=== PATIENT | female | born 1950 | race Caucasian/White ===

== ENCOUNTER → 2024-03-14 08:29 | Outpatient (REF) | payer MEDICARE, OTHER, SELFPAY ==
[2024-03-14 11:21] LABS: Urine Albumin Negative (Neg - Trace); Urine Bilirubin Negative (Negative); Urine Character Slightly Cloudy (Clear); Urine Color Yellow; Urine Glucose 3+ (Negative); Urine Ketone Negative (Negative); Urine Leukocyte 1+ (Negative); Urine Nitrite Positive (Negative); Urine Occult Blood Negative (Negative); Urine Urobilinogen Negative (Neg - 1+)
[2024-03-14 11:31] LABS: Urine Bacteria Few (Negative); Urine Squamous Cell 0-2 /LPF (Few)
[2024-03-14 11:32] LABS: Urine White Cell 16-20 /HPF (0-5)
== END ==
LOC: OLABN 08:29
PROVIDERS: ATTENDING PHYSICIAN Student in an Organized Health Care Education/Training Program
DX: R30.9 Painful micturition, unspecified (principal)
CPT/HCPCS: 81003; 81015; 87071; 87086; 87186

== ENCOUNTER → 2024-06-17 10:50 | Outpatient (REF) | payer MEDICARE, OTHER, SELFPAY ==
[2024-06-17 13:42] LABS: Free T4 1.46 ng/dl (0.78-2.19)
[2024-06-17 13:56] LABS: TSH 1.08 uIU/ml (0.47-4.68)
== END ==
LOC: OLABN 10:50
PROVIDERS: ATTENDING PHYSICIAN Student in an Organized Health Care Education/Training Program
DX: E03.9 Hypothyroidism, unspecified (principal); F03.90 Unspecified dementia, unspecified severity, without behavioral disturbance, psychotic disturbance, mood disturbance, and anxiety
CPT/HCPCS: 84439; 84443

== ENCOUNTER → 2024-07-07 18:00 | Outpatient (REF) | payer MEDICARE, OTHER, SELFPAY ==
[2024-07-08 13:10] LABS: Urine Albumin Trace (Neg - Trace); Urine Bilirubin Negative (Negative); Urine Character Slightly Cloudy (Clear); Urine Color Yellow; Urine Glucose 3+ (Negative); Urine Ketone Negative (Negative); Urine Leukocyte Trace (Negative); Urine Nitrite Positive (Negative); Urine Occult Blood 2+ (Negative); Urine Urobilinogen Negative (Neg - 1+)
[2024-07-08 14:29] LABS: Urine Squamous Cell 0-2 /LPF (Few)
[2024-07-08 14:30] LABS: Urine Bacteria Many (Negative); Urine White Cell 26-30 /HPF (0-5)
== END ==
LOC: OLABN 18:00
PROVIDERS: ATTENDING PHYSICIAN Student in an Organized Health Care Education/Training Program
DX: R30.9 Painful micturition, unspecified (principal)
CPT/HCPCS: 36415; 81003; 81015; 87077; 87086

== ENCOUNTER → 2024-07-09 10:39 | Outpatient (REF) | payer MEDICARE, OTHER, SELFPAY ==
[2024-07-09 12:58] LABS: Glycohemoglobin (HgbA1c) 7.7 % (4.0-5.6)
== END ==
LOC: OLABN 10:39
PROVIDERS: ATTENDING PHYSICIAN Student in an Organized Health Care Education/Training Program
DX: E11.40 Type 2 diabetes mellitus with diabetic neuropathy, unspecified (principal)
CPT/HCPCS: 36415; 83036

== ENCOUNTER → 2024-08-27 11:33 | Outpatient (REF) | payer MEDICARE, OTHER, SELFPAY ==
[2024-08-27 12:35] LABS: HDL Cholesterol 62 mg/dl; LDL Cholesterol, Calculated 39 mg/dl; Total Cholesterol 130 mg/dl (50-199); Triglyceride 146 mg/dl (10-149); Very Low Density Lipoprotein 29 mg/dl (0-30)
== END ==
LOC: OLABN 11:33
PROVIDERS: ATTENDING PHYSICIAN Student in an Organized Health Care Education/Training Program
DX: E78.5 Hyperlipidemia, unspecified (principal)
CPT/HCPCS: 36415; 80061

== ENCOUNTER 2024-09-30 01:55 | Emergency (ER) | payer MEDICARE, OTHER, SELFPAY ==
[2024-09-30 02:00] VITALS: BP 157/75
[2024-09-30 02:08] VITALS: BP 157/75
--- NOTE | 2024-09-30 02:32 | ED.GENMED ---
History of Present Illness
General
Chief Complaint: Fall
Time Seen by Provider: 09/30/24 01:56
History of Present Illness
History of Present Illness:
74-year-old female with prior history of right hip replacement, CVA with right-sided hemiparesis, dementia presenting to the emergency department for fall. Patient reports she was sitting on the edge of her bed and was waiting for her aide. She
usually ambulates with assistance and a walker, however typically gets around with a wheelchair. While waiting for aide, slid from her bed onto the ground is now reporting right-sided hip pain. Denies any head injury. Denies numbness or tingling
to her leg. Has chronic weakness. Denies additional acute complaints such as chest pain, difficulty breathing, fever, abdominal pain
Past History
Past History
ED Past Medical History: Arrthythmia (Atrial fib), CVA (Right sided weakness, ), GERD, HTN, IDDM, Hypothyroidism and Other (DVT Internal jugular, UTI, Iron def anemia, )
ED Past Surgical History: Tonsilectomy and Other (Hernia repair)
Social History
Tobacco: Former smoker
Alcohol: None
Personal:
Living: jail
Phy Exam
Physical Exam
Physical Exam:
General: Well-appearing, no clinical signs of dehydration, nontoxic and in no acute distress
HEENT: protecting airway. No signs of trauma
Neck: appears supple, no midline tenderness to
CV: Normal heart rate, regular rhythm, no evidence of cyanosis
Resp: No accessory muscle use, no increased work of breathing, lungs clear to auscultation bilaterally
Abd: Soft and non-distended, no tenderness to palpation
Extremities: No deformities, no swelling, no erythema.
Neuro: alert, no focal neurologic deficit. Chronic weakness of the right upper and right lower extremity. No obvious deformity to the right lower extremity with generalized tenderness to the right hip joint. Range of motion limited secondary to
hemiparesis. Distal sensation and pulses intact
: deferred
Rectal: deferred
Psych: Normal affect
Skin: Intact
Course
Orders/Labs/Results
Orders:
Orders
09/30/24 02:17
Hip, Right 2-3 Views [CR Hip - RT w/wo Pel 2-3 Vw*] Urgent
Comment:
Reason For Exam: pain, fell out of bed
Include a pelvis x-ray?: Yes
09/30/24 02:25
Acetaminophen [Tylenol] 1,000 mg PO NOW STA
09/30/24 03:18
CT Pelvis W/o Iv Contrast Urgent
Comment:
Reason For Exam: fall, right hip pain
Vital Signs
Initial and Last Documented VS:
Initial Vital Signs
Temp Pulse Resp BP Pulse Ox
97.7 F 57 20 157/75 95
09/30/24 02:00 09/30/24 02:00 09/30/24 02:00 09/30/24 02:00 09/30/24 02:00
Last Documented Vital Signs
Temp Pulse Resp BP Pulse Ox
97.7 F 59 20 129/56 95
09/30/24 02:00 09/30/24 02:08 09/30/24 02:08 09/30/24 04:20 09/30/24 05:00
MDM/Problems Addressed
MDM/Problems Addressed:
74-year-old female with prior history of right hip replacement, CVA with right-sided hemiparesis, dementia presenting after fall out of bed onto her right hip vital signs are significant for mild hypertension.
On exam, patient is well-appearing, resting comfortably, no physical signs of trauma. Patient with generalized tenderness to the right hip joint without significant deformity or swelling. Range of motion is limited, however noted to be chronic
from previous CVA and hemiparesis. Otherwise no neurovascular compromise. Tylenol administered for fall. Will obtain x-ray imaging of the hip. Patient denying any head injury, again no signs of injury on exam, without indication for advanced
imaging
03:20 -patient without obvious hip fracture, difficult interpretation given arthritic nature. Given pain and hardware, will obtain CT pelvis for further evaluation
05:00 -CT without osseous abnormality. There is a small fluid collection at the right hip surgical site, possible seroma versus abscess. Lower suspicion for abscess, with pain result trauma. No erythema or warmth to the area or concern for
infection. Feel stable for discharge. Advised continued supportive therapy and ambulation with assistance and walker. Return precautions discussed and patient verbalized understanding
*Critical Care Note
Total Time (30-74mins, 75-104mins- exclusive of procedures): Not Applicable
ED Attending Note
-
Portions of this chart may have been created with voice recognition software.� Occasional wrong word or��sound alike� substitutions may have occurred due to the inherent limitations of voice recognition software.
Discharge Plan
Departure
Prescriptions:
No Action
dextromethorphan-guaifenesin 10-100 mg/5 mL Liquid
10 ml PO Q4HPRN PRN (Reason: cough)
acetaminophen [Tylenol Extra Strength] 500 mg Tablet
1,000 mg PO Q12H
magnesium hydroxide [Milk of Magnesia] 400 mg/5 mL Suspension
2,400 mg PO HSPRN PRN (Reason: constipation)
amlodipine [Norvasc] 10 mg Tablet
10 mg PO DAILY
bisacodyl [Dulcolax (bisacodyl)] 10 mg Suppository
10 mg NV [id number] PRN (Reason: if no bm by 3rd day)
pantoprazole [Protonix] 40 mg Tablet,Delayed Release (Dr/Ec)
40 mg PO QPM
gabapentin 300 mg Capsule
600 mg PO TID
escitalopram oxalate [Lexapro] 10 mg Tablet
15 mg PO DAILY
rosuvastatin [Crestor] 40 mg Tablet
40 mg PO QPM
insulin glargine [Basaglar KwikPen U-100 Insulin] 100 unit/mL (3 mL) Insulin Pen
18 unit SC HS
polyethylene glycol 3350 [Miralax] 17 gram Powder In Packet
17 g PO QPM
ondansetron HCl 4 mg Tablet
4 mg PO Q6HPRN PRN (Reason: nausea)
sennosides-docusate sodium [Senna-S] 8.6-50 mg Tablet
2 tab PO BID
levothyroxine 150 mcg Tablet
150 mcg PO DAILY
furosemide 40 mg Tablet
40 mg PO DAILY Qty: 30 0RF
ipratropium-albuterol 0.5 mg-3 mg(2.5 mg base)/3 mL Solution For Nebulization
3 ml INHALATION R BID
lidocaine 4 % Adhesive Patch,Medicated
1 patch TOPICAL DAILYPRN PRN (Reason: apply to right shoulder)
docusate sodium [Colace] 100 mg Capsule
200 mg PO DAILY
oxycodone 5 mg Tablet
5 mg PO Q6HPRN PRN (Reason: severe pain)
dapagliflozin propanediol 10 mg Tablet
10 mg PO DAILY
aspirin 81 mg Tablet,Chewable
81 mg PO DAILY
ferrous sulfate 325 mg (65 mg iron) Tablet
325 mg PO MOWEFR@1830
therapeutic multivitamin Tablet
1 tab PO DAILY
vancomycin in 0.9 % sodium chl 1 gram/200 mL Piggyback
1 g IV Q24H 11 Days Qty: 0 0RF
polyethylene glycol 3350 17 gram/dose powder
17 g PO DAILY Qty: 510 0RF
Referrals:
Long Blunt DO [Family Provider] -
Interventions
Interventions:
*Risk Screen - Suicide Last Done: 09/30/24 02:08
*General Assessment Last Done: 09/30/24 02:09
*Neglect/Abuse Screening Last Done: 09/30/24 02:08
*ED COVID-19 Vaccine History Last Done: 09/30/24 02:08
ED-Musculoskeletal Assessment Last Done: 09/30/24 02:04
ED- Neurological Assessment Last Done: 09/30/24 02:06
ED-Skin Assessment Last Done: 09/30/24 02:04
Discharge Date and Time
Print Language: SERBIAN
[2024-09-30] MEDS: TYLENOL 1000 MG PO (02:59)
[2024-09-30 04:20] VITALS: BP 129/56
[2024-09-30 05:00] VITALS: BP 113/49
[2024-09-30 06:00] VITALS: BP 96/47
== END 2024-09-30 06:36 | disposition home or self-care (01) ==
LOC: EMR 01:55
PROVIDERS: EMERGENCY PHYSICIAN Student in an Organized Health Care Education/Training Program; FAMILY PHYSICIAN Student in an Organized Health Care Education/Training Program
DX: M25.551 Pain in right hip (principal); W06.XXXA Fall from bed, initial encounter; E03.9 Hypothyroidism, unspecified; E11.9 Type 2 diabetes mellitus without complications; I10 Essential (primary) hypertension; Z86.718 Personal history of other venous thrombosis and embolism; I69.851 Hemiplegia and hemiparesis following other cerebrovascular disease affecting right dominant side; F03.90 Unspecified dementia, unspecified severity, without behavioral disturbance, psychotic disturbance, mood disturbance, and anxiety; Z79.4 Long term (current) use of insulin; Z87.891 Personal history of nicotine dependence; Z96.641 Presence of right artificial hip joint
CPT/HCPCS: 99284; 72192; 73502

== ENCOUNTER → 2024-10-14 08:44 | Outpatient (REF) | payer MEDICARE, OTHER, SELFPAY ==
[2024-10-14 12:05] LABS: Urine Albumin Trace (Neg - Trace); Urine Bilirubin Negative (Negative); Urine Character Clear (Clear); Urine Color Yellow; Urine Glucose 3+ (Negative); Urine Ketone Negative (Negative); Urine Leukocyte Trace (Negative); Urine Nitrite Negative (Negative); Urine Occult Blood 2+ (Negative); Urine Urobilinogen Negative (Neg - 1+)
[2024-10-14 12:49] LABS: Urine Urothelial Cell 0-2 /LPF (FEW); Urine White Cell 40-50 /HPF (0-5)
[2024-10-14 12:50] LABS: Urine Bacteria Moderate (Negative)
== END ==
LOC: OLABN 08:44
PROVIDERS: ATTENDING PHYSICIAN Student in an Organized Health Care Education/Training Program
DX: R30.9 Painful micturition, unspecified (principal)
CPT/HCPCS: 36415; 81003; 81015; 87086

== ENCOUNTER → 2024-10-29 09:54 | Outpatient (REF) | payer MEDICARE, OTHER, SELFPAY ==
[2024-10-29 12:31] LABS: % Basophils 0.5 % (0-2); % Eosinophils 0.3 % (0-6); % Immature Granulocytes 0.3 % (0-0.5); % Lymphocytes 15.6 % (20.5-51.1); % Monocytes 4.9 % (1.7-9.3); % Neutrophils 78.4 % (42.2-75.2); Absolute Basophils 0.1 10^3/uL (0-0.2); Absolute Lymphocytes 1.5 10^3/uL (1.2-3.4); Absolute Monocytes 0.5 10^3/uL (0.1-0.6); Absolute Neutrophils 7.6 10^3/uL (1.4-6.5); Hemoglobin 10.4 g/dL (12.0-16.0); Mean Corp Hgb Conc. 30.6 g/dL (33.0-37.0); Mean Corpuscular Hgb 27.6 pg (27.0-31.0); Mean Corpuscular Volume 90.2 fL (81.0-99.0); Mean Platelet Volume 10.5 fL (7.4-10.4); Nucleated Red Blood Cells % 0 %; Platelet Count 264 10^3/uL (130-400); Red Blood Cell Count 3.77 10^6/uL (4.20-5.40); Red Cell Dist. Width 16.6 % (11.5-14.5); White Blood Cell Count 9.6 10^3/uL (4.8-10.8)
== END ==
LOC: OLABN 09:54
PROVIDERS: ATTENDING PHYSICIAN Student in an Organized Health Care Education/Training Program
DX: D64.9 Anemia, unspecified (principal)
CPT/HCPCS: 36415; 85025

== ENCOUNTER → 2024-12-31 10:26 | Outpatient (REF) | payer MEDICARE, OTHER, SELFPAY ==
[2024-12-31 11:01] LABS: % Basophils 0.6 % (0-2); % Eosinophils 2.5 % (0-6); % Immature Granulocytes 0.5 % (0-0.5); % Lymphocytes 19.3 % (20.5-51.1); % Monocytes 8.4 % (1.7-9.3); % Neutrophils 68.7 % (42.2-75.2); Absolute Basophils 0.1 10^3/uL (0-0.2); Absolute Eosinophils 0.2 10^3/uL (0-0.7); Absolute Lymphocytes 1.7 10^3/uL (1.2-3.4); Absolute Monocytes 0.7 10^3/uL (0.1-0.6); Hematocrit 33.7 % (37.0-47.0); Hemoglobin 10.3 g/dL (12.0-16.0); Mean Corp Hgb Conc. 30.6 g/dL (33.0-37.0); Mean Corpuscular Volume 88.2 fL (81.0-99.0); Mean Platelet Volume 10.3 fL (7.4-10.4); Nucleated Red Blood Cells % 0.2 %; Platelet Count 274 10^3/uL (130-400); Red Blood Cell Count 3.82 10^6/uL (4.20-5.40); Red Cell Dist. Width 17.2 % (11.5-14.5); White Blood Cell Count 8.8 10^3/uL (4.8-10.8)
[2024-12-31 11:31] LABS: ALT (SGPT) < 10 U/L (0-35); AST (SGOT) 14 U/L (14-36); Albumin 3.4 g/dl (3.5-5.0); Alkaline Phosphatase 96 U/L (38-126); Blood Urea Nitrogen 18 mg/dl (7-17); Calcium 8.7 mg/dl (8.4-10.2); Carbon Dioxide 32 mmol/L (22-30); Chloride 95 mmol/L (98-107); Glucose 197 mg/dl (70-99); Potassium 4.1 mmol/L (3.5-5.1); Sodium 136 mmol/L (135-145); Total Bilirubin 0.6 mg/dl (0.2-1.3); eGFR > 60.00
== END ==
LOC: OLABN 10:26
PROVIDERS: ATTENDING PHYSICIAN Student in an Organized Health Care Education/Training Program
DX: R50.9 Fever, unspecified (principal)
CPT/HCPCS: 36415; 80053; 85025

== ENCOUNTER → 2024-12-31 21:30 | Outpatient (REF) | payer MEDICARE, OTHER, SELFPAY ==
[2025-01-01 13:02] LABS: Urine Albumin 2+ (Neg - Trace); Urine Bilirubin Negative (Negative); Urine Character Clear (Clear); Urine Color Yellow; Urine Glucose 4+ (Negative); Urine Ketone Negative (Negative); Urine Leukocyte Negative (Negative); Urine Nitrite Positive (Negative); Urine Occult Blood 3+ (Negative); Urine Urobilinogen Negative (Neg - 1+)
[2025-01-01 13:10] LABS: Urine Bacteria Few (Negative); Urine White Cell 21-25 /HPF (0-5)
[2025-01-02 12:50] LABS: Protein/creatinine Ratio 2.2; Urine Protein 103 mg/dl
== END ==
LOC: OLABN 21:30
PROVIDERS: ATTENDING PHYSICIAN Student in an Organized Health Care Education/Training Program
DX: R50.9 Fever, unspecified (principal)
CPT/HCPCS: 36415; 80053; 81003; 81015; 82570; 84156; 85025; 87077; 87086

== ENCOUNTER → 2025-01-06 08:44 | Outpatient (REF) | payer MEDICARE, OTHER, SELFPAY | LOC: OLABN 08:44 | PROVIDERS: ATTENDING PHYSICIAN Student in an Organized Health Care Education/Training Program | DX: E11.40 Type 2 diabetes mellitus with diabetic neuropathy, unspecified (principal) | CPT/HCPCS: 36415; 83036 ==

== ENCOUNTER → 2025-04-22 22:00 | Outpatient (REF) | payer MEDICARE, OTHER, SELFPAY ==
[2025-04-23 11:10] LABS: Urine Albumin 2+ (Neg - Trace); Urine Bilirubin Negative (Negative); Urine Character Slightly Cloudy (Clear); Urine Color Yellow; Urine Glucose 4+ (Negative); Urine Ketone Negative (Negative); Urine Leukocyte 2+ (Negative); Urine Nitrite Positive (Negative); Urine Occult Blood 1+ (Negative); Urine Specific Gravity 1.015 (<1.030); Urine Urobilinogen Negative (Neg - 1+)
[2025-04-23 11:19] LABS: Urine Squamous Cell 26-30 /LPF (Few)
[2025-04-23 11:22] LABS: Urine Bacteria Many (Negative); Urine Red Blood Cell 0-2 /HPF (0-2)
[2025-04-23 11:23] LABS: Urine White Cell 70-80 /HPF (0-5)
== END ==
LOC: OLABN 22:00
PROVIDERS: ATTENDING PHYSICIAN Student in an Organized Health Care Education/Training Program
DX: R35.0 Frequency of micturition (principal); R82.90 Unspecified abnormal findings in urine
CPT/HCPCS: 81003; 81015; 87086

== ENCOUNTER → 2025-04-29 09:43 | Outpatient (REF) | payer MEDICARE, OTHER, SELFPAY ==
[2025-04-29 11:36] LABS: % Basophils 0.7 % (0-2); % Eosinophils 3.2 % (0-6); % Immature Granulocytes 0.3 % (0-0.5); % Lymphocytes 17.9 % (20.5-51.1); % Monocytes 6.9 % (1.7-9.3); Absolute Basophils 0.1 10^3/uL (0-0.2); Absolute Eosinophils 0.3 10^3/uL (0-0.7); Absolute Lymphocytes 1.7 10^3/uL (1.2-3.4); Absolute Monocytes 0.7 10^3/uL (0.1-0.6); Absolute Neutrophils 6.8 10^3/uL (1.4-6.5); Hematocrit 36.2 % (37.0-47.0); Hemoglobin 10.8 g/dL (12.0-16.0); Mean Corp Hgb Conc. 29.8 g/dL (33.0-37.0); Mean Corpuscular Hgb 27.1 pg (27.0-31.0); Mean Platelet Volume 10.1 fL (7.4-10.4); Nucleated Red Blood Cells % 0.5 %; Platelet Count 305 10^3/uL (130-400); Red Blood Cell Count 3.98 10^6/uL (4.20-5.40); Red Cell Dist. Width 18.3 % (11.5-14.5); White Blood Cell Count 9.6 10^3/uL (4.8-10.8)
[2025-04-29 11:57] LABS: NT-proBNP 2860 pg/ml
[2025-04-29 12:06] LABS: Blood Urea Nitrogen 20 mg/dl (7-17); Calcium 8.6 mg/dl (8.4-10.2); Carbon Dioxide 27 mmol/L (22-30); Chloride 100 mmol/L (98-107); Glucose 191 mg/dl (70-99); Potassium 3.6 mmol/L (3.5-5.1); Sodium 138 mmol/L (135-145); eGFR 47.21
== END ==
LOC: OLABN 09:43
PROVIDERS: ATTENDING PHYSICIAN Student in an Organized Health Care Education/Training Program
DX: I10 Essential (primary) hypertension (principal); D50.9 Iron deficiency anemia, unspecified; I50.32 Chronic diastolic (congestive) heart failure
CPT/HCPCS: 36415; 80048; 83880; 85025

== ENCOUNTER 2025-05-14 23:04 | Inpatient (IN) | payer MEDICARE, OTHER, SELFPAY ==
[2025-05-14 18:05] VITALS: BMI 37.5
[2025-05-14 18:17] VITALS: BP 121/104
[2025-05-14 18:35] LABS: Venous Blood Gas B.E. 4.4 mmol/L (-4 to +4); Venous Blood Gas HCO3 32.5 mmol/L (22-27); Venous Blood Gas O2 Sat % 98.3 %; Venous Blood Gas pCO2 66 mmHg (35-48); Venous Blood Gas pO2 106 mmHg (30-50)
[2025-05-14 18:44] LABS: % Basophils 0.6 % (0-2); % Eosinophils 4.2 % (0-6); % Immature Granulocytes 0.2 % (0-0.5); % Lymphocytes 17.7 % (20.5-51.1); % Monocytes 6.8 % (1.7-9.3); % Neutrophils 70.5 % (42.2-75.2); Absolute Basophils 0.1 10^3/uL (0-0.2); Absolute Eosinophils 0.3 10^3/uL (0-0.7); Absolute Lymphocytes 1.4 10^3/uL (1.2-3.4); Absolute Monocytes 0.6 10^3/uL (0.1-0.6); Absolute Neutrophils 5.7 10^3/uL (1.4-6.5); Hematocrit 38.3 % (37.0-47.0); Hemoglobin 11.1 g/dL (12.0-16.0); Mean Corpuscular Hgb 26.6 pg (27.0-31.0); Mean Corpuscular Volume 91.6 fL (81.0-99.0); Mean Platelet Volume 9.5 fL (7.4-10.4); Nucleated Red Blood Cells % 0.4 %; Platelet Count 287 10^3/uL (130-400); Red Blood Cell Count 4.18 10^6/uL (4.20-5.40); Red Cell Dist. Width 19.4 % (11.5-14.5); White Blood Cell Count 8.1 10^3/uL (4.8-10.8)
[2025-05-14 18:57] LABS: ALT (SGPT) < 10 U/L (0-35); AST (SGOT) 13 U/L (14-36); Albumin 3.9 g/dl (3.5-5.0); Alkaline Phosphatase 78 U/L (38-126); Blood Urea Nitrogen 20 mg/dl (7-17); Calcium 8.7 mg/dl (8.4-10.2); Carbon Dioxide 32 mmol/L (22-30); Chloride 102 mmol/L (98-107); Estimated Creatinine Clearance 46 ml/min; Glucose 207 mg/dl (70-99); Magnesium 2.6 mg/dl (1.6-2.3); Potassium 4.6 mmol/L (3.5-5.1); Sodium 140 mmol/L (135-145); Total Bilirubin 0.6 mg/dl (0.2-1.3); eGFR 52.08
[2025-05-14 19:00] VITALS: BP 106/59
[2025-05-14 19:08] LABS: NT-proBNP 2660 pg/ml; Troponin I 0.031 ng/ml
[2025-05-14 20:01] VITALS: BP 140/57
[2025-05-14 20:35] LABS: Urine Albumin 2+ (Neg - Trace); Urine Bilirubin Negative (Negative); Urine Character Clear (Clear); Urine Color Yellow; Urine Glucose 4+ (Negative); Urine Ketone Negative (Negative); Urine Leukocyte Negative (Negative); Urine Nitrite Negative (Negative); Urine Occult Blood Negative (Negative); Urine Specific Gravity 1.015 (<1.030); Urine Urobilinogen Negative (Neg - 1+)
[2025-05-14 20:49] LABS: Urine Bacteria Moderate (Negative); Urine Red Blood Cell 0-2 /HPF (0-2)
[2025-05-14 21:00] VITALS: BP 136/56
--- NOTE | 2025-05-14 21:24 | ED.GENMED ---
History of Present Illness
General
Chief Complaint: Breathing Problem
Source: patient and family
Time Seen by Provider: 05/14/25 18:09
History of Present Illness
History of Present Illness:
Note:
CHIEF COMPLAINT(S)
Shortness of breath and altered mental status.
HISTORY OF PRESENT ILLNESS
The patient is an unidentified gender-unknown individual presenting with shortness of breath and altered mental status. The patient initially experienced in-and-out consciousness at home, prompting a call to EMS. Upon EMS arrival, the patient
required 15 liters of oxygen via non-rebreather mask, and her oxygen saturation was noted to be 84% on 5 liters at the time of examination. The patient has a past medical history significant for chronic obstructive pulmonary disease (COPD). The
patient denied current chest pain but acknowledged experiencing it previously. The patient reported feeling 'short of breath' earlier, prior to EMS intervention.
ADDITIONAL HISTORY OBTAINED FROM SOURCES OTHER THAN THE PATIENT
Per EMS, the patient was noted to have changes in mental status, described as somnolent yet arousable. EMS reports also indicated that they were initially called for tremors associated with the shortness of breath.
PHYSICAL EXAM
Nursing notes reviewed and vital signs reviewed.
- General: Patient appears somnolent but is arousable.
- Neurological: Oriented to person and place.
DIFFERENTIAL DIAGNOSIS
The Differential Diagnosis includes, in no particular order and is not limited to:
1. Exacerbation of chronic obstructive pulmonary disease (COPD)
2. Pulmonary embolism
3. Pneumonia
4. Congestive heart failure
5. Acute coronary syndrome
6. Metabolic acidosis
7. Hypoxia secondary to respiratory infection
8. Medication-induced respiratory depression
9. Anxiety-related hyperventilation
10. Sepsis
EKG
My independent EKG interpretation is:
- Rhythm: Normal sinus rhythm
- Heart Rate: Normal
- Mora: Normal axis
- Acute ST Segment Changes: None
- Notable Abnormalities: None observed
Disposition:
SUMMARY OF ENCOUNTER
The patient is a 75-year-old female presenting with significant hypoxia. She has a history of chronic obstructive pulmonary disease (COPD) but suspect congestive heart failure (CHF) indicated by chest imaging and elevated BNP. The patient is more
alert and improving with oxygen support.
DISPOSITION
The patient is admitted to the hospital.
ASSESSMENT
The patient presents with hypoxia, likely exacerbated by CHF and COPD.
EMERGENCY TREATMENTS ADMINISTERED
IV diuretics were administered.
MANAGEMENT OF THE PATIENTS CARE WAS DISCUSSED WITH
Case was discussed with the hospitalists for admission.
INDEPENDENT REVIEW OF LABS AND INTERPRETATION OF TESTS
My independent review noted mildly elevated PCO2 levels.
My independent review of white count is that it is normal
My independent review of her chest x-ray reveals volume overload
ADDITIONAL TESTING AND IMAGING CONSIDERED
CTA ruled out pulmonary embolism.
MEDICAL DECISION MAKING
1. Number & Complexity of Problems: Chronic conditions affecting care include COPD and CHF. Differential diagnoses considered include exacerbation of COPD and CHF.
2. Data Reviewed:
- Category 1: Chest imaging indicating CHF; CTA showing no pulmonary embolism; EKG changes; PCO2 levels.
- Category 2: Discussion with the patient�s daughter.
3. Risk: Consideration of admission due to complexity and risk of decompensation. Aggressive management for COPD may be considered if there is no significant improvement with diuresis.
CRITICAL CARE TIME
I provided critical care management due to a high probability of life-threatening deterioration while managing the patients acute respiratory insufficiency.
PATHOLOGIES TO CONSIDER
- Pulmonary embolism
- Congestive heart failure exacerbation
- Acute coronary syndrome
- Sepsis
- Hypoxia secondary to likely exacerbation of CHF and COPD
Past History
Past History
ED Past Medical History: Arrthythmia (Atrial fib), CVA (Right sided weakness, ), GERD, HTN, IDDM, Hypothyroidism and Other (DVT Internal jugular, UTI, Iron def anemia, )
ED Past Surgical History: Tonsilectomy and Other (Hernia repair)
Social History
Tobacco: Former smoker
Alcohol: None
Personal:
Living: [facility]
Phy Exam
Physical Exam
Physical Exam:
.
Scores
Heart Failure Risk
Heart Failure Risk Score: Yes
History of Stroke or TIA: No
History of intubation for respiratory distress: No
Heart rate on ED arrival >/= 110: No
SaO2 <90% on arrival on room air: Yes
HR >/=110 during 3min walk test (or too ill to perform test): Yes
ECG has acute ischemic changes: No
Urea >/=12mmol/L (BUN 33.6mg/dL): No
Serum CO2>/=35mmol/L: No
Troponin I or T elevated to MD Level (0.4mg/dL): No
NT-proBNP >/=5,000ng/L (5,000pg/ml): No
HF Risk Score: 3
Admission Status: HIGH RISK 15.9% Consider SNF treatment or admission to hospital
Course
Orders/Labs/Results
Orders:
Orders
05/14/25 18:09
EKG [Electrocardiogram (*1)] Urgent
Reason for Study: Tachycardia
EKG- Treatment ONCE
05/14/25 18:21
Complete Blood Count/With Diff Urgent
Comprehensive Metabolic Panel Urgent
Magnesium Urgent
Venous Blood Gas Urgent
%Oxygen/Room Air: 80
05/14/25 18:22
Cardiac Monitoring- Treatment ONCE
CR Chest Portable - 1 View Urgent
Comment:
Reason For Exam: hypoxia
Reason Study Needs to be Portable: Unable to Transport
05/14/25 18:26
NT-proBNP Urgent
Troponin I Urgent
05/14/25 18:27
Add On- LAB Urgent
Tests Added?: Magnesium
05/14/25 20:08
CT Chest PE Study Urgent
Comment:
Reason For Exam: severe hypoxia
05/14/25 20:17
Urinalysis Reflex To Culture Urgent
Date Specimen was Collected: 05/14/25
Time Specimen was Collected: 19:47
Urine Microscopic Reflex Cult Urgent
Urine Culture Urgent
ADILIA Source: U
Specimen Description:
Date Specimen was Collected: 05/14/25
Time Specimen was Collected: 19:47
05/14/25 21:23
Furosemide [Lasix] 40 mg IV NOW STA
05/14/25 22:00
Flush (0.9% Sodium Chloride) [Flush (Nss)] See Dose Instructions IV PER PROTOCOL
05/14/25 22:23
Bipap [RESP] Urgent
Patient to use own unit?: No
Inspiratory Pressure (cm H2O): 15
Expiratory Pressure (cm H2O): 5
Oxygen Liter Flow: 2
Instructions: Titrate oxygen for SaO2 > 92%
05/14/25 22:37
Admit/Transfer Patient As Directed
Co-Sign Provider:
Level of Care: Inpatient admission
Assign to:: IMU- Intermediate Care
Physician / Group: Luciano
Diagnosis: Acute on chronic hypoxic respiratory failure
Reason for Hospitalization: COPD exacerbation, hypercapnia
Expected length of stay greater than two midnights?: Yes
ELOS- Estimated Length of Stay in days: 2
I certify the patient meets the requirements for IP care: Yes
05/14/25 22:38
PRN Pain Medication Management As Directed
May give lesser potent ordered pain med per pt: Yes
preference::
Protocol:: Medication orders for pain may be administered in a
manner that supports deferring to patient preference
when the pt is:
- Requesting an ordered lesser potent pain medication.
Least to most potent pain medications are defined
as: acetaminophen < NSAID < tramadol < opioids
(morphine, oxycodone, hydromorphone).
- Requesting a lesser dose of the same medication IF
ORDERED.
- Requesting a less intrusive route of administration
if both routes are prescribed by the provider (PO <
IV).
05/14/25 22:42
Code Status As Directed
Resuscitation Status: Do not resuscitate
Based on pt advanced directive or healthcare POA form: Yes
DNR Bracelet Application ONCE
05/14/25 22:47
Ipratropium/Albuterol Sulfate [Duoneb] 3 ml INH R NOW ONE
MethylPREDNISolone PF [Solu-Medrol Pf] 40 mg IV NOW STA
05/14/25 23:01
COVID-19 Antigen Stat
Source: Nasal Swab
Influenza A+B Rapid Molecular Stat
ADILIA Source: Nasal Swab
Specimen Description:
Abnormal Lab Results
05/14/25 05/14/25
18:21 20:17
RBC 4.18 L 10^6/uL
(4.20-5.40)
Hgb 11.1 L g/dL
(12.0-16.0)
MCH 26.6 L pg
(27.0-31.0)
MCHC 29.0 L g/dL
(33.0-37.0)
RDW 19.4 H %
(11.5-14.5)
Lymphocytes % 17.7 L %
(20.5-51.1)
VBG pH 7.30 L
(7.32-7.43)
VBG pCO2 66 H mmHg
(35-48)
VBG pO2 106 H mmHg
(30-50)
VBG HCO3 32.5 H mmol/L
(22-27)
Carbon Dioxide 32 H mmol/L
(22-30)
BUN 20 H mg/dl
(7-17)
Creatinine 1.1 H mg/dL
(0.6-1.0)
Glucose 207 H mg/dl
(70-99)
Magnesium 2.6 H mg/dl
(1.6-2.3)
AST 13 L U/L
(14-36)
Urine Bacteria (Reflex) Moderate A
(Negative)
Urine Glucose 4+ A
(Negative)
Urine Albumin (Reflex) 2+ A
(Neg - Trace)
05/14/25 18:21
05/14/25 18:21
Vital Signs
Initial and Last Documented VS:
Initial Vital Signs
Temp Pulse Resp Pulse Ox
98.8 F 70 16 95
05/14/25 18:05 05/14/25 18:05 05/14/25 18:05 05/14/25 18:05
Last Documented Vital Signs
Temp Pulse Resp BP Pulse Ox
98.8 F 71 22 136/56 92
05/14/25 18:05 05/14/25 23:15 05/14/25 23:15 05/14/25 21:48 05/14/25 23:15
*Pulse Oximetry
SaO2: 94
Nasal Cannula flow liters per minute: 6
Patient hypoxic: yes
*Turntable Operator Interpretation
Rate: normal
Interpretation: normal
Rhythm: sinus
*Critical Care Note
Total Time (30-74mins, 75-104mins- exclusive of procedures): 35 minutes
ED Attending Note
-
Portions of this chart may have been created with voice recognition software.� Occasional wrong word or��sound alike� substitutions may have occurred due to the inherent limitations of voice recognition software.
Discharge Plan
Departure
Patient Disposition: Admit
Date of Disposition: 05/14/25
Time of Disposition: 21:24
Admit to: Telemetry
Presentation/result/management discussed w/ accepting MD/DO: Hospitalist
Discharge Problem:
Hypoxia, CHF (congestive heart failure)
Interventions
Interventions:
*Risk Screen - Suicide Last Done: 05/14/25 18:05
*General Assessment Last Done: 05/14/25 18:05
*Neglect/Abuse Screening Last Done: 05/14/25 18:05
*ED- Fall Risk Assessment Last Done: 05/14/25 18:05
*ED COVID-19 Vaccine History Last Done: 05/14/25 18:05
ED- Cardiac Assessment Last Done: 05/14/25 18:30
ED- Pulmonary Assessment Last Done: 05/14/25 18:30
[2025-05-14] MEDS: LASIX 40 MG IV (21:48)
[2025-05-14] MEDS: FLUSH (NSS) 1 FLUSH IV (21:49)
--- NOTE | 2025-05-14 22:10 | HPS.HSE ---
Family Physician
-
Family Physician: Long Blunt,
Chief Complaint
-
Hypoxia
History of Present Illness
This is a 75-year-old with multiple medical comorbidities including COPD on intermittent oxygen at 2 to 4 L, insulin-dependent diabetes, hypertension, hyperlipidemia, CHF with preserved EF, morbid obesity, hypothyroid who presents to the emergency
department after being found hypoxic on 4 L.
Patient able to provide some history after being awoken. She stated that she felt that she was having trouble breathing for about 1 week. Symptoms started when family members visited 1 week ago. She says she had a mild cough at that time but it
was not productive. She denied having any fevers or chills. She denies any increasing lower extremity edema. Patient self denies any wheezing. She is poorly mobile but does not endorse any dyspnea on exertion. She denies any runny nose, sinus
congestion, postnasal drip sore throat nausea vomiting or diarrhea. She denies any known sick contacts.
Patient reports that she is intermittently on 2 L to 4 L oxygen as needed. She denies any history of noninvasive positive pressure ventilation use. Denies history of sleep apnea.
Patient unable to provide history of current episode. According to the chart records she is normally alert and oriented but found to have a pulse ox of 85% on 4 L which improved to 90% after some time. She had difficulty with walking and had
uncontrollably shaking legs. She denied having any chest pain at this time.
On arrival in the emergency department the patient was satting 94% on 5 L currently. She was hemodynamically stable with a blood pressure of 130/56 with a pulse of 73 and a temp of 98.8. Respiratory rate while sleeping is around 15.
Chest x-ray shows pulmonary edema. ECG shows a normal sinus rhythm at a rate of 68. Troponin is negative. BNP was 2660.
ABG 7.3/66/106/30 2.5.
CBC was unremarkable. Electrolytes were notable for a bicarb of 32 but otherwise unremarkable. BUN/creatinine were stable at [address] with PE protocol shows no evidence of PE, there was atelectasis and scarring and signs of pulmonary hypertension but no evidence of pulmonary edema or effusion.
Medical History
Past Medical History
Past Medical History: Reports Other (coronary artery disease, HFpEF, CVA with right hemiparesis, hypertension, COPD on 2 L at baseline as needed, hypothyroidism, chronic pain, dementia, diabetes, recent right hip fracture status post surgical repair
08/17)
Past Surgical History: Reports Other (Tonsilectomy and Other (Hernia repair))
Social History
Tobacco: Non-smoker
Alcohol: Occasional
Drug: None
Family History
Family History: Not pertinent
Allergies / Home Medications
Allergies reflects when Allergies were last updated in [employer].
Home Medications with original date entered in [employer]
Allergy/Medication List:
Allergies
Allergy/AdvReac Type Severity Reaction Status Date / Time
No Known Allergies Allergy Verified 10/10/23 12:50
Home Medications
acetaminophen 500 mg tablet (Tylenol Extra Strength) 1,000 mg PO Q12H Pain 01/16/23
amlodipine 10 mg tablet (Norvasc) 10 mg PO DAILY Blood pressure 01/16/23
bisacodyl 10 mg rectal suppository (Dulcolax (bisacodyl)) 10 mg [place] DAILY PRN x3 days if no bm and mom/lactulose ineffective 01/16/23
dextromethorphan-guaifenesin 10 mg-100 mg/5 mL oral liquid 10 ml PO Q4H PRN cough 01/16/23
escitalopram oxalate 10 mg tablet (Lexapro) 10 mg PO DAILY Mental Health/Anxiety 01/16/23
gabapentin 300 mg capsule 600 mg PO TID Pain 01/16/23
insulin glargine 100 unit/mL (3 mL) subcutaneous pen (Basaglar KwikPen U-100 Insulin) 18 unit SC HS Diabetes 01/16/23
magnesium hydroxide 400 mg/5 mL oral suspension (Milk of Magnesia) 30 ml PO HS PRN constipation 01/16/23
pantoprazole 40 mg tablet,delayed release (Protonix) 40 mg PO QPM Gastrointestinal issue 01/16/23
rosuvastatin 40 mg tablet (Crestor) 40 mg PO QPM High cholesterol 01/16/23
levothyroxine 150 mcg tablet 150 mcg PO DAILY Thyroid 07/07/23
naloxone 4 mg/actuation nasal spray (Narcan) 4 mg intranasal Q3M PRN opioid overdose 07/07/23
ondansetron HCl 4 mg tablet 4 mg PO Q6H PRN nausea 07/07/23
polyethylene glycol 3350 17 gram oral powder packet (Miralax) 17 g PO QPM Gastrointestinal Issue 07/07/23
sennosides 8.6 mg-docusate sodium 50 mg tablet (Senna-S) 2 tab-cap PO BID Constipation 07/07/23
furosemide 40 mg tablet 40 mg PO DAILY Fluid retention/Swelling #30 tabs 07/12/23
ipratropium 0.5 mg-albuterol 3 mg (2.5 mg base)/3 mL nebulization soln 3 ml inhalation R BID Lung/Breathing Issues 08/16/23
dapagliflozin propanediol 10 mg tablet 10 mg PO DAILY Diabetes 08/20/23
docusate sodium 100 mg capsule (Colace) 200 mg PO DAILY Constipation 08/20/23
lidocaine 4 % topical patch 1 patch topical Q12H PRN apply to right shoulder 08/20/23
oxycodone 5 mg tablet 5 mg PO Q6H PRN severe pain 08/20/23
folic acid-vit B6-vit B12 2.5 mg-25 mg-2 mg tablet (WesTab Max) 1 tab PO DAILY #30 tabs 08/24/23
miconazole nitrate 2 % topical powder (Miconazorb AF) 1 applic topical PRN PRN SOILAGE/DRAINAGE #85 grams 08/24/23
aspirin 81 mg chewable tablet 81 mg PO DAILY 10/10/23
ferrous sulfate 325 mg (65 mg iron) tablet 325 mg PO MOWEFR@1830 10/12/23
Review of Systems
-
History Source: Patient
A 12 point ROS was completed and negative except as noted: Yes
Constitutional: Reports No Symptoms
EENT: Reports No Symptoms
Respiratory: Reports No Symptoms
Cardiac: Reports No Symptoms
Abdomen/GI: Reports No Symptoms
: Reports No Symptoms
Musculoskeletal: Reports No Symptoms
Skin: Reports No Symptoms
Neurological: Reports No Symptoms
Endocrine: Reports No Symptoms
Hematologic/Lymphatic: Reports No Symptoms
Psych: Reports No Symptoms
Physical Exam
Vital Signs
Vital Signs
Temp Pulse Resp BP Pulse Ox
98.8 F 73 13 136/56 94
05/14/25 18:05 05/14/25 21:48 05/14/25 21:45 05/14/25 21:48 05/14/25 21:26
Physical Exam
General: Well Developed, No Apparent Distress, Comfortable and Morbidly Obese
HEENT: NormoCephalic, Anicteric, Atraumatic, PERRLA and Oxygen; No Moist mucous membranes
Respiratory: Clear (only able to auscultate anteriorly), Wheezes (trace scattered wheezes) and Non Labored Respirations; No Rales, Rhonchi or Crackles
Cardiac: S1/S2 and Regular Rhythm; No Peripheral Edema, JVD or Carotid Bruits
Breast: Deferred by me
GI: Soft, Non Tender, Normal Bowel Sounds and Distended
Rectal: Deferred by Provider
Genito-urinary: Deferred by me
Musculoskeletal: No Clubbing, No Cyanosis and No Edema
Skin: Warm
Neuro: AO x 3 and Nonfocal/grossly intact
Hematologic/Lymphatic: No Lymphadenopathy
Psych: Calm
Laboratory Results
-
05/14/25 18:21
05/14/25 18:21
Laboratory Results
Total Bilirubin 0.6 mg/dl (0.2-1.3) 05/14/25 18:21
AST 13 U/L (14-36) L 05/14/25 18:21
ALT < 10 U/L (0-35) 05/14/25 18:21
Alkaline Phosphatase 78 U/L (38-126) 05/14/25 18:21
Troponin I 0.031 ng/ml 05/14/25 18:26
Data Reviewed
-
Diagnostic Radiology: Report Reviewed by me
CT Scan: Report Reviewed by me
Medical Tests (Nuc Med, Echo, EKG etc): Image Personally Visualized and interpreted
Lab Data: Labs Reviewed by me
Old Records: Reviewed
Impression/Plan
-
IMPRESSION:
75-year-old female with multiple comorbidities including diastolic CHF, hypertension, hyperlipidemia, insulin-dependent diabetes, COPD on 2 L, morbid obesity, hypothyroid who presents to the emergency department with hypoxic episode. Patient is
available historian but appears to be past her been having symptoms for about 1 week. She is not coughing, she is afebrile, chest x-ray is unremarkable. The CT is negative for PE and is consistent with her known pulmonary artery hypertension.
Labs are unremarkable. VBG shows a chronic respiratory acidosis with a pH of 7.3 and a bicarb of 66. She does not have any increased work of breathing but appears to have pretty severe emphysema in addition to some degree of musculoskeletal
restrictive lung pattern. BNP is similar to prior and she has no new evidence of volume overload. There is no JVD, no peripheral disease and no pulmonary edema on the CT scan. She is not wheezing for me however only able to listen anteriorly. No
consolidation suggestive of pneumonia. PE is negative. This time suspect acute on chronic COPD with possibly mild CHF exacerbation.
PLAN:
Hypoxia - Hypoxic and hypercarbic respiratory disease. Likely COPD exacerbation with mild CHF. pH 7.3 currently and sattiing 94% on 5 L. Suspect will have increasing O2 retention. No PE or pumonary edema on CT Angio.
- admit to imu
- will start bipap 12/5 as tolerated
- maintain sat > 92%
- lasix 40mg iv daily for now
- although not wheezing, she has decreased airmovement likely air trapping and poor respiratory mechanics
- will continue with nebs RTC and solumedrol q 12
- check procalcitonin. Without cough, no indication for abx
- minimize sedation, may be a factor in the acute on chronic resp acidoss.
CHF - Known diastolic CHF EF 60%. No overt volume overload
- lasix 40 iv daily
- continue aspirin, and statin
- continue amlodipine
DM II
- lantus 30 Hs
- aspart sliding scale
Hypothyroid
- checkk tsh
- continue levothyroxine 150 mcg daily
DVT PPX - lovenox sq
Code Status - DNR/DNI
[2025-05-14] MEDS: DUONEB 3 ML INH (22:59)
[2025-05-14 23:00] VITALS: PULSE 2; PULSE 68
[2025-05-14] MEDS: SOLU-MEDROL PF 40 MG IV (23:00)
[2025-05-14 23:32] LABS: COVID-19 Antigen Negative (Negative)
[2025-05-14 23:54] VITALS: BMI 36.8
[2025-05-15] VITALS (19 sets, daily range): BP systolic 109–145; BP diastolic 43–99; PULSE 2–76; BMI 36.2
[2025-05-15] MEDS: HYDROCORTISONE 2.5% CREAM 1 APPLIC TOPICAL ×3 (04:48→20:16)
[2025-05-15 04:59] LABS: Venous Blood Gas B.E. 5.2 mmol/L (-4 to +4); Venous Blood Gas HCO3 34.4 mmol/L (22-27); Venous Blood Gas O2 Sat % 95.3 %; Venous Blood Gas pH 7.27 (7.32-7.43); Venous Blood Gas pO2 67 mmHg (30-50)
[2025-05-15 05:01] LABS: Venous Blood Gas O2 Therapy 28; Venous Blood Gas pCO2 75 mmHg (35-48)
[2025-05-15 05:28] LABS: Blood Urea Nitrogen 22 mg/dl (7-17); Calcium 8.4 mg/dl (8.4-10.2); Carbon Dioxide 29 mmol/L (22-30); Chloride 102 mmol/L (98-107); Estimated Creatinine Clearance 46 ml/min; Glucose 320 mg/dl (70-99); Potassium 5.3 mmol/L (3.5-5.1); Sodium 139 mmol/L (135-145); eGFR 52.08
[2025-05-15] MEDS: SYNTHROID 150 MCG PO (06:17)
[2025-05-15] MEDS: HALDOL 1 MG IM (06:43)
--- NOTE | 2025-05-15 06:45 | PTCARENOTE ---
Pt removed bipap, kicking and yelling at this RN to 'leave her alone', 'shes fine', 'she can breathe'. RN attempted to place Pt on nasal cannula , expaling the purpose and necessity of this intervention. Pts sat at 76%. multiple Rns in room
attempting to educate Pt on neccessity of wearing the oxygen. RT made aware. MANAGER INTENSIVE CARE made aware. Pt remains stating to 'leave her alone'.order received for b/l soft wrist restraints and Im haldol. restraints applied. medication administered, see JAN.
pt wearing restraints. pt calm now, satting 95%.
--- NOTE | 2025-05-15 06:51 | W.PN.UPDATE ---
Update Note
Progress Note Update
Patient agitated this am pulling off her bipap. CO2 zen overnight and Resp adjusted settings. Placed oxygen NC but she continually screaming for nursing to leave. Haldol IM x1 along with wrist restraints at least until calmed.
[2025-05-15] MEDS: DUONEB 3 ML INH ×4 (07:15→20:03)
--- NOTE | 2025-05-15 08:03 | CON.PUL ---
Consultation
Consultation Request
Date/Time Consultation Requested: 05/15/2025
Date/Time Consultation Performed: 05/15/2025
Requesting Provider: Junito Gary
Performing Provider: Evelyn Berumen
Reason for Consultation: Respiratory failure
Medical History
-
Chief Complaint: Hypoxia
History of Present Illness:
Patient is a 75-year-old female with known history of COPD, home oxygen dependent, hypertension, hyperlipidemia, congestive heart failure, morbid obesity who was brought to the emergency room for hypoxic respiratory failure. Patient reportedly uses
oxygen on an as-needed basis. Lately she has been needing more oxygen which prompted the transfer to emergency room. Venous blood gas was also suggestive of acute on chronic hypercapnia with mild respiratory acidosis. Patient was placed on BiPAP
therapy with gradual improvement. During my evaluation this morning, she was on nasal cannula, awake, alert, oriented and essentially asymptomatic. CT chest reviewed was suggestive of some atelectasis but no pulmonary embolism, infiltrates or
pleural effusions noted. Pulmonary consultation was requested for further evaluation.
Past Medical History: Reports Other (coronary artery disease, HFpEF, CVA with right hemiparesis, hypertension, COPD on 2 L at baseline as needed, hypothyroidism, chronic pain, dementia, diabetes, recent right hip fracture status post surgical repair
08/17)
Past Surgical History: Reports Other (Tonsilectomy and Other (Hernia repair))
Social History
Tobacco: Prior history of smoking.
Alcohol: Occasional
Drug: None
Family History
Family History: Not pertinent
Allergies / Home Medications
Allergies / Home Medications
Allergies
Allergy/AdvReac Type Severity Reaction Status Date / Time
No Known Allergies Allergy Verified 05/14/25 18:13
Home Medications
�Medication �Instructions �Recorded �Confirmed �Last Taken �Type
acetaminophen 500 mg tablet 1,000 mg PO Q12H Pain 01/16/23 05/14/25 05/14/25 History
(Tylenol Extra Strength)
amlodipine 10 mg tablet (Norvasc) 10 mg PO DAILY Blood pressure 01/16/23 05/14/25 05/14/25 History
bisacodyl 10 mg rectal suppository 10 mg MS [id number] PRN no BM and 01/16/23 05/14/25 07/01/23 01:12 History
(Dulcolax (bisacodyl)) MOM/lactulose ineffective
escitalopram oxalate 10 mg tablet 10 mg PO DAILY Mental 01/16/23 05/14/25 05/14/25 History
(Lexapro) Health/Anxiety
gabapentin 300 mg capsule 600 mg PO TID Pain 01/16/23 05/14/25 05/14/25 History
insulin glargine 100 unit/mL (3 35 unit SC HS Diabetes 01/16/23 05/14/25 05/13/25 History
mL) subcutaneous pen (Basaglar
KwikPen U-100 Insulin)
magnesium hydroxide 400 mg/5 mL 2,400 mg PO HSPRN PRN constipation 01/16/23 05/14/25 05/12/25 History
oral suspension (Milk of Magnesia)
rosuvastatin 40 mg tablet (Crestor) 40 mg PO HS High cholesterol 01/16/23 05/14/25 05/13/25 History
levothyroxine 150 mcg tablet 150 mcg PO DAILY Thyroid 07/07/23 05/14/25 05/14/25 History
sennosides 8.6 mg-docusate sodium 2 tab PO BID Constipation 07/07/23 05/14/25 05/14/25 History
50 mg tablet (Senna-S)
furosemide 40 mg tablet 40 mg PO DAILY Fluid 07/12/23 05/14/25 05/14/25 Rx
retention/Swelling #30 tabs
dapagliflozin propanediol 10 mg 10 mg PO DAILY Diabetes 08/20/23 05/14/25 05/14/25 History
tablet
oxycodone 5 mg tablet 5 mg PO Q6HPRN PRN moderate pain 08/20/23 05/14/25 05/14/25 History
aspirin 81 mg chewable tablet 81 mg PO DAILY Blood Clot 10/10/23 05/14/25 05/14/25 History
Prevention/Tx
ferrous sulfate 325 mg (65 mg 325 mg PO MOWEFR@1430 Supplement 10/12/23 05/14/25 05/13/25 History
iron) tablet
therapeutic multivitamin 1 tab PO DAILY Supplement 10/12/23 05/14/25 05/14/25 History
polyethylene glycol 3350 17 17 g PO DAILY #510 grams 10/15/23 05/14/25 05/14/25 Rx
gram/dose oral powder
acetaminophen 325 mg tablet 650 mg PO Q4H PRN mild 05/14/25 05/14/25 Unknown History
(Tylenol) pain/fever>100.4
benzocaine 6 mg-menthol 10 mg 1 anoop mucous membrane Q6HPRN PRN 05/14/25 05/14/25 Unknown History
lozenges dry throat
bupropion HCl 150 mg 24 hr tablet, 150 mg PO DAILY 05/14/25 05/14/25 05/14/25 History
extended release
diclofenac sodium 1 % topical gel 2 g topical QID PRN apply to right 05/14/25 05/14/25 Unknown History
shoulder
gabapentin 100 mg capsule 100 mg PO HS 05/14/25 05/14/25 05/13/25 History
hydrocortisone 2.5 % topical cream 1 applic topical Q12H left 05/14/25 05/14/25 Unknown History
forearm/right wrist
hydroxyzine HCl 25 mg tablet 25 mg PO Q6HPRN PRN pruritus 05/14/25 05/14/25 Unknown History
insulin lispro 100 unit/mL 1 sliding scale dose SC DIRECTED 05/14/25 05/14/25 Unknown History
subcutaneous pen (Admelog SoloStar
U-100 Insulin lispro)
miconazole nitrate 2 % topical 1 applic topical DAILY PRN apply 05/14/25 05/14/25 Unknown History
powder (Desenex) under B/L breast
naloxone 4 mg/actuation nasal spray 1 spray intranasal Q2-3M PRN 05/14/25 05/14/25 Unknown History
opioid overdose
pantoprazole 20 mg tablet,delayed 20 mg PO DAILY 05/14/25 05/14/25 05/14/25 History
release
Review of Systems
-
Hematologic/Lymphatic: Other (All 14 systems reviewed and negative except as stated above in the history of present illness.)
Vitals / Labs / Diagnostic Testing
Vital Signs
Temp Pulse Resp BP Pulse Ox
97.4 F 69 16 145/67 94
05/15/25 03:00 05/15/25 07:17 05/15/25 07:17 05/15/25 07:00 05/15/25 07:17
Lab Data
05/14/25 18:21
05/15/25 04:44
Microbiology
05/14/25 23:01 Nasal Swab Influenza Types A & B (MERISSA) - Final
Negative for Influenza A & B, NAAT
Negative results must be combined with clinical observations
and patient history.
Nucleic Acid Amplification test (NAAT)performed on the
[employer] platform.
Diagnostic Testing:
Physical Exam
-
HEENT: Normocephalic
Cardiovascular: S1/S2 and Peripheral Edema (Trace edema)
Respiratory: Clear
GI: Soft
Neurology: Awake
Skin: Warm
General: Comfortable
Assessment
-
#1. Acute on suspect chronic hypoxic and hypercapnic respiratory failure.
- Patient's ABG reviewed, suggestive of some degree of chronic hypercapnia with acute worsening. Suspect this is multifactorial in the setting of suspected obesity hypoventilation syndrome, suspected underlying MARY in the setting of COPD for which
she uses oxygen intermittently. Patient also on multiple sedating medication including Atarax, gabapentin and oxycodone which could have also contributed to hypoventilation.
- Patient responded well to noninvasive ventilation, currently awake, alert and oriented without any asterixis. Saturating well on nasal cannula currently
- Minimize sedating medications, continue BiPAP nightly and when patient naps
- Low threshold to check blood gas if patient has any change in mental status
- On exam she does not appear to be bronchospastic we will lower steroids down to 30 mg daily for total 5 days and then discontinue
- As outpatient, patient will need a sleep study as well as pulmonary function testing for further evaluation.
- Check ABG in a.m.
#2. History of COPD, on home O2 intermittently.
- Does not appear to be in acute exacerbation on exam
- No pulmonary function testing available for review
- Continue DuoNeb 4 times daily scheduled for now, discontinue IV steroids and start prednisone 30 mg daily for total of 5 days.
- Procalcitonin 0.1, no indication for antibiotics
- Pulmonary opacities noted on CT are more suggestive of atelectasis, continue positive pressure ventilation at night and when sleeping
#3. Suspect underlying MARY and OHS
- Patient reports snoring at night and also reports excessive sleepiness during daytime with naps. She has not had any formal sleep study in the past.
- Will need outpatient sleep study for further evaluation
- With chronic hypercapnia, suspected sleep disordered breathing, elevated bicarb and need for oxygen, high pretest probability of underlying obesity hypoventilation syndrome
#4. Acute on chronic heart failure with preserved ejection fraction.
- BNP is elevated, chest x-ray was suggestive of pulmonary edema however CT scan does not look particularly volume overloaded
- Currently on IV Lasix, monitor renal function closely, anticipate switching to oral steroids in a.m.
Other medical diagnoses:
- Diabetes mellitus
- Hypertension/hyperlipidemia
- Hypothyroidism
- Morbid obesity
Total time spent on this consultation/encounter __75__ minutes which includes review of history, physical exam, medications, laboratory data, personal review of imaging, extensive review of outpatient records, discussion with care team and
respiratory therapy.
Data:
CT Chest 04/2025: No PE noted. No acute disease of the chest. No evidence of pulmonary embolus.
Moderate atelectasis versus scarring. Progressed
Prominent pulmonary trunk. This can be seen with pulmonary hypertension. Stable
Mild cardiomegaly. Stable
There is mild mediastinal lymphadenopathy. The largest lymph node is precarinal. It measures 1.8 x 0.9 cm. There is a an AP window lymph node measuring 1.5 x 1.1 cm.
There is no hilar lymphadenopathy.
ECHO 06/2023: Normal left ventricular size and systolic function.
LV ejection fraction is 60-65% .
Mitral annular calcification.
Mild mitral regurgitation.
Aortic sclerosis without stenosis.Mild aortic regurgitation.
Moderate tricuspid regurgitation.
Pulmonary hypertension. Estimated pulmonary artery pressure of 60-65 mmHg.
No prior study available for comparison.
[2025-05-15] MEDS: SOLU-MEDROL PF 40 MG IV (08:20)
[2025-05-15] MEDS: PROTONIX 20 MG PO (08:20)
[2025-05-15] MEDS: SENOKOT-S 2 TABLET PO ×2 (08:20→20:17)
[2025-05-15] MEDS: LOW STRENGTH ASPIRIN 81 MG PO (08:20)
[2025-05-15] MEDS: LASIX 40 MG IV (08:20)
[2025-05-15] MEDS: LEXAPRO 10 MG PO (08:20)
[2025-05-15] MEDS: NORVASC 10 MG PO (08:21)
[2025-05-15] MEDS: WELLBUTRIN XL (24 hour extended release) 150 MG PO (08:21)
[2025-05-15] MEDS: FARXIGA 10 MG PO (08:21)
[2025-05-15] MEDS: NOVOLOG FLEXPEN-LOW RESISTANCE 4 UNITS SC (08:22)
[2025-05-15 08:32] LABS: Glucose - Point of Care 320 mg/dl (70-99)
--- NOTE | 2025-05-15 09:04 | PTCARENOTE ---
Pt Aox3; pleasant and cooperative at this time. Educated pt on importance of keeping O2 and monitor on. Pt agreeable to plan of care. Restraints removed.
[2025-05-15] MEDS: MIRALAX 17 GRAMS PO (09:09)
[2025-05-15] MEDS: NOVOLOG FLEXPEN 5 UNITS SC (09:09)
[2025-05-15 13:19] LABS: Glucose - Point of Care 368 mg/dl (70-99)
[2025-05-15] MEDS: NOVOLOG FLEXPEN-LOW RESISTANCE 5 UNITS SC ×2 (13:35→18:09)
--- NOTE | 2025-05-15 14:15 | PTCARENOTE ---
Pt's assessment as documented. NSR on tele monitor. Satting low 90's on 5L. Pt removing O2 and monitor equipment and requiring redirection. Medications administered, see JAN. Bed alarm and call marcano in place.
--- NOTE | 2025-05-15 14:35 | CM ---
Left a voice mail for daughter/primary contact, Zara, to call Occupational Therapy Assistant to complete mother's initial assessment; and discuss discharge plan
--- NOTE | 2025-05-15 16:18 | W.PN.HOSP.TC ---
Today's Communication/Plan
-
Assessment / Plan
Assessment / Plan
NAD
Scleral Anicteric
MMM
No JVD
CTABL
RRR, S1/S2
Morbidly obese, soft, NT, ND, BS+
Warm, Dry
AAOx3
Calm
Acute on suspect chronic hypoxemic hypercapnic respiratory failure
- Continue BiPAP nightly as needed
Maintain SpO2 greater than 88 to 92%
Pulmonary consulted
COPD
Started prednisone 30 mg discontinue IV ABG in the a.m. O2 intermittent continue DuoNeb
Acute on chronic heart failure with preserved EF
Continue IV Lasix
Follow renal function
Daily weight
Keep K greater than 4 magnesium greater than 2
Telemetry monitoring
Type 2 diabetes
Accu-Chek sliding scale long and short acting insulin
Goal blood glucose 140-180
Hypothyroidism
Continue levothyroxine
Anticipated Discharge: 24 - 48 hours
Subjective/Interval History
-
Date of Service: May 15, 2025
Seen and examined. No new complaints. No acute overnight events.
Objective Data
-
Labs:
Laboratory Results
05/15/25
04:44
Sodium 139
Potassium 5.3 H
Chloride 102
Carbon Dioxide 29
BUN 22 H
Creatinine 1.1 H
Glucose 320 H
Calcium 8.4
Vital Signs:
Vital Signs
Temp Pulse Resp BP Pulse Ox
98.1 F 70 18 130/99 83
05/15/25 16:02 05/15/25 16:03 05/15/25 16:03 05/15/25 15:00 05/15/25 16:03
I&O
05/14/25 05/15/25 05/16/25
06:59 06:59 06:59
Output Total 750 / 750
Balance -750 / -750
--- NOTE | 2025-05-15 16:53 | CM ---
Initial assessment completed with patient's daughter/primary contact, Zara via phone
Pharmacy: [facility]
Daughter reported that patient resides at [facility]; has been there 2 years
Patient is incontinent; needs total care; knows her family but is confused. Daughter stated she has mild dementia
Plan: return to [facility] when medically stable
[2025-05-15 17:24] LABS: Glucose - Point of Care 371 mg/dl (70-99)
[2025-05-15] MEDS: LOVENOX 40 MG SC (18:06)
[2025-05-15] MEDS: LANTUS 0.35 UNITS SC (18:07)
[2025-05-15 21:19] LABS: Glucose - Point of Care 281 mg/dl (70-99)
[2025-05-15] MEDS: NEURONTIN 100 MG PO (21:20)
[2025-05-15] MEDS: CRESTOR 40 MG PO (21:20)
--- NOTE | 2025-05-15 23:08 | PTCARENOTE ---
Assumed care of pt and assessment completed. Pt is restless, jovial but non compliant and was removing oxygen frequently. pt verbalizes importance of oxygen and is more compliant at this time. She is oriented x 3 but forgetful, redirects easily but
short periods. Incontinent of urine, pt unaware. Hygiene provided and Purewick replaced. Pt appreciative
--- NOTE | 2025-05-15 23:15 | PTCARENOTE ---
Pt refusing BIPAP after multiple discussions with nursing and respiratory staff
[2025-05-15] MEDS: TYLENOL 650 MG PO (23:30)
[2025-05-15] MEDS: ATARAX 25 MG PO (23:30)
--- NOTE | 2025-05-15 23:32 | PTCARENOTE ---
Addendum entered by Anastasia Bailey RN 05/15/25 23:47:
Pt medicated with Tylenol for mild arm pain
Original Note:
Pt c/o of mild right arm discomfort and left arm itching. topical cream decreased itching initially but patient now reports increased arm itching, pt medicated with Atarax
[2025-05-16] VITALS (19 sets, daily range): BP systolic 112–155; BP diastolic 55–122; PULSE 71; O2SAT 93; BMI 36.2
--- NOTE | 2025-05-16 02:48 | PTCARENOTE ---
Patient continues to refuse BIPAP mask, taking off her monitor leads and oxygen. Pulse ox drops to mid 80%. Frequent replacing of monitor leads. pt dozes off, restless and frequent repositioning and replacing of leads/
[2025-05-16] MEDS: SYNTHROID 150 MCG PO (05:45)
--- NOTE | 2025-05-16 06:06 | PTCARENOTE ---
Addendum entered by Anastasia Bailey RN 05/16/25 06:44:
Pt appears to rest quieter when she plays [employer] videos/reels on her phone.
Original Note:
patient rested quietly for extended time with oxygen at 4L nc. Pulse ox in 90-94% range. now awake and uncooperative and pulled her INT out. VAT notified for restart. Pt is oriented to person and place. Moving around in bed, incontinent of urine.
Hygiene care provided and warm blanket, pt quiets down
[2025-05-16 07:20] LABS: Glucose - Point of Care 171 mg/dl (70-99)
[2025-05-16] MEDS: DUONEB 3 ML INH ×4 (07:24→19:43)
[2025-05-16] MEDS: SENOKOT-S 2 TABLET PO ×2 (07:47→19:31)
[2025-05-16] MEDS: DELTASONE 30 MG PO (07:47)
[2025-05-16] MEDS: PROTONIX 20 MG PO (07:48)
[2025-05-16] MEDS: LEXAPRO 10 MG PO (07:48)
[2025-05-16] MEDS: WELLBUTRIN XL (24 hour extended release) 150 MG PO (07:48)
[2025-05-16] MEDS: FARXIGA 10 MG PO (07:48)
[2025-05-16] MEDS: NORVASC 10 MG PO (07:49)
[2025-05-16] MEDS: LOW STRENGTH ASPIRIN 81 MG PO (07:49)
[2025-05-16] MEDS: LASIX 40 MG IV (07:50)
[2025-05-16] MEDS: MIRALAX 17 GRAMS PO (07:50)
[2025-05-16] MEDS: HYDROCORTISONE 2.5% CREAM 1 APPLIC TOPICAL ×2 (07:50→19:32)
[2025-05-16] MEDS: NOVOLOG FLEXPEN-LOW RESISTANCE 1 UNITS SC (09:22)
[2025-05-16 09:31] LABS: Venous Blood Gas B.E. 9.6 mmol/L (-4 to +4); Venous Blood Gas HCO3 36.7 mmol/L (22-27); Venous Blood Gas O2 Sat % 98.9 %; Venous Blood Gas pO2 146 mmHg (30-50)
[2025-05-16 09:32] LABS: Venous Blood Gas pCO2 62 mmHg (35-48); Venous Blood Gas pH 7.38 (7.32-7.43)
[2025-05-16 11:29] LABS: Glucose - Point of Care 250 mg/dl (70-99)
--- NOTE | 2025-05-16 12:29 | W.PN.PUL3 ---
Today's Communication / Plan
-
- Outpatient follow-up with pulmonary clinic for sleep study as well as pulmonary function testing
- Minimize sedating medications, continue O2 as needed to maintain saturation in the normal range
- Pulmonary team will sign off, please call as needed
Assessment
-
Patient is a 75-year-old female with known history of COPD, home oxygen dependent, hypertension, hyperlipidemia, congestive heart failure, morbid obesity who was brought to the emergency room for hypoxic respiratory failure. Patient reportedly uses
oxygen on an as-needed basis. Lately she has been needing more oxygen which prompted the transfer to emergency room. Venous blood gas was also suggestive of acute on chronic hypercapnia with mild respiratory acidosis. Patient was placed on BiPAP
therapy with gradual improvement. During my evaluation this morning, she was on nasal cannula, awake, alert, oriented and essentially asymptomatic. CT chest reviewed was suggestive of some atelectasis but no pulmonary embolism, infiltrates or
pleural effusions noted. Pulmonary consultation was requested for further evaluation.
#1. Acute on suspect chronic hypoxic and hypercapnic respiratory failure.
- Patient's ABG reviewed, suggestive of some degree of chronic hypercapnia with acute worsening. Suspect this is multifactorial in the setting of suspected obesity hypoventilation syndrome, suspected underlying MARY in the setting of COPD for which
she uses oxygen intermittently. Patient also on multiple sedating medication including Atarax, gabapentin and oxycodone which could have also contributed to hypoventilation.
- Patient responded well to noninvasive ventilation, but has since refused positive pressure ventilation. Overnight patient refused to wear BiPAP. This morning she refused to get ABG drawn.
- VBG this morning without having been overnight on PAP therapy, 7.38/ suggestive of compensated hypercapnia. Currently awake, alert and oriented without any asterixis. Saturating well on nasal cannula currently
- Minimize sedating medications.
- No wheezing on exam
- As outpatient, patient will need a sleep study as well as pulmonary function testing for further evaluation.
- Since patient declines CPAP/BiPAP and did not veer overnight and has compensated hypercapnia this morning, we can pursue further workup with a sleep study and pulmonary function testing as outpatient. Left information in the discharge section.
#2. History of COPD, on home O2 intermittently.
- Does not appear to be in acute exacerbation on exam
- No pulmonary function testing available for review
- Continue DuoNeb 4 times daily scheduled for now, discontinue IV steroids and start prednisone 30 mg daily for total of 5 days.
- Procalcitonin 0.1, no indication for antibiotics
- Pulmonary opacities noted on CT are more suggestive of atelectasis, continue positive pressure ventilation at night and when sleeping
#3. Suspect underlying MARY and OHS
- Patient reports snoring at night and also reports excessive sleepiness during daytime with naps. She has not had any formal sleep study in the past.
- Will need outpatient sleep study for further evaluation
- With chronic hypercapnia, suspected sleep disordered breathing, elevated bicarb and need for oxygen, high pretest probability of underlying obesity hypoventilation syndrome
#4. Acute on chronic heart failure with preserved ejection fraction.
- BNP is elevated, chest x-ray was suggestive of pulmonary edema however CT scan does not look particularly volume overloaded
- Currently on IV Lasix, monitor renal function closely, anticipate switching to oral steroids in a.m.
Other medical diagnoses:
- Diabetes mellitus
- Hypertension/hyperlipidemia
- Hypothyroidism
- Morbid obesity
Total time spent on this consultation/encounter __45__ minutes which includes review of history, physical exam, medications, laboratory data, personal review of imaging, extensive review of outpatient records, discussion with care team and
respiratory therapy.
Data:
CT Chest 04/2025: No PE noted. No acute disease of the chest. No evidence of pulmonary embolus.
Moderate atelectasis versus scarring. Progressed
Prominent pulmonary trunk. This can be seen with pulmonary hypertension. Stable
Mild cardiomegaly. Stable
There is mild mediastinal lymphadenopathy. The largest lymph node is precarinal. It measures 1.8 x 0.9 cm. There is a an AP window lymph node measuring 1.5 x 1.1 cm.
There is no hilar lymphadenopathy.
ECHO 06/2023: Normal left ventricular size and systolic function.
LV ejection fraction is 60-65% .
Mitral annular calcification.
Mild mitral regurgitation.
Aortic sclerosis without stenosis.Mild aortic regurgitation.
Moderate tricuspid regurgitation.
Pulmonary hypertension. Estimated pulmonary artery pressure of 60-65 mmHg.
No prior study available for comparison.
Subjective Data
-
Date of Service:
Date of Service: May 16, 2025
Subjective:
Patient comfortably lying in bed in no acute distress, awake alert this morning on supplemental oxygen. Patient did not wear BiPAP last night. And she refused arterial blood gas this morning.
Review of Systems
Genitourinary: Other (All 14 systems reviewed and negative except as stated above in the history of present illness.)
Objective Data
Data Reviewed
Vital Signs / I&O / Oxygen:
Vital Signs
Temp Pulse Resp BP Pulse Ox
97.8 F 68 16 134/66 93
05/16/25 11:46 05/16/25 11:31 05/16/25 11:31 05/16/25 09:00 05/16/25 11:31
Intake and Output
05/15/25 05/16/25 05/17/25
06:59 06:59 06:59
Intake Total 200 / 200
Output Total 1600 / 1600
Balance -1400 / -1400
SaO2 93
Nasal Cannula flow liters per 4
minute
Physical Exam
General: Comfortable
HEENT: Normocephalic
Cardiovascular: S1-S2
Respiratory: Clear and Non-Labored Respirations
GI: Soft and Non Distended
Neurology: Awake
Skin: Warm
Labs/Micro/Reports
Lab Data
05/14/25 18:21
05/15/25 04:44
Microbiology
05/14/25 20:17 Urine Urine Culture - Final
NO GROWTH
05/14/25 23:01 Nasal Swab Influenza Types A & B ([facility]IS[facility]) - Final
Negative for Influenza A & B, NAAT
Negative results must be combined with clinical observations
and patient history.
Nucleic Acid Amplification test (NAAT)performed on the
[employer] platform.
[2025-05-16] MEDS: NOVOLOG FLEXPEN-LOW RESISTANCE 3 UNITS SC (12:42)
--- NOTE | 2025-05-16 15:00 | W.PN.HOSP.TC ---
Today's Communication/Plan
-
Assessment / Plan
Assessment / Plan
NAD
Scleral Anicteric
MMM
No JVD
CTABL
RRR, S1/S2
Morbidly obese, soft, NT, ND, BS+
Warm, Dry
AAOx3
Calm
Acute on suspect chronic hypoxemic hypercapnic respiratory failure
- Continue BiPAP nightly as needed
Maintain SpO2 greater than 88 to 92%
Pulmonary following
COPD
Started prednisone 30 mg discontinue IV ABG in the a.m. O2 intermittent continue DuoNeb
Acute on chronic heart failure with preserved EF
Continue IV Lasix
Follow renal function
Daily weight
Keep K greater than 4 magnesium greater than 2
Telemetry monitoring
Type 2 diabetes
Accu-Chek sliding scale long and short acting insulin
Goal blood glucose 140-180
Hypothyroidism
Continue levothyroxine
Anticipated Discharge: 24 - 48 hours
Subjective/Interval History
-
Date of Service: May 16, 2025
Seen and examined. No new complaints. No acute overnight events
Objective Data
-
Labs:
Laboratory Results
05/16/25
06:00
HCO3 Cancelled
Vital Signs:
Vital Signs
Temp Pulse Resp BP Pulse Ox
98.5 F 68 16 134/66 93
05/16/25 14:23 05/16/25 11:31 05/16/25 11:31 05/16/25 09:00 05/16/25 11:31
I&O
05/15/25 05/16/25 05/17/25
06:59 06:59 06:59
Intake Total 200 / 200
Output Total 1600 / 1600
Balance -1400 / -1400
[2025-05-16 15:49] LABS: Glucose - Point of Care 395 mg/dl (70-99)
[2025-05-16] MEDS: NOVOLOG FLEXPEN-LOW RESISTANCE 5 UNITS SC (16:56)
[2025-05-16] MEDS: LOVENOX 40 MG SC (16:57)
[2025-05-16] MEDS: NEURONTIN 100 MG PO (19:31)
[2025-05-16] MEDS: CRESTOR 40 MG PO (19:31)
[2025-05-16 21:42] LABS: Glucose - Point of Care 217 mg/dl (70-99)
[2025-05-16] MEDS: MELATONIN 5 MG PO (21:47)
[2025-05-16] MEDS: TYLENOL 650 MG PO (21:47)
[2025-05-16] MEDS: LANTUS 0.35 UNITS SC (21:48)
--- NOTE | 2025-05-16 22:10 | RESPNOTE ---
2029 - patient has declined BiPAP use for later tonight
--- NOTE | 2025-05-16 22:35 | PTCARENOTE ---
Patient continuously removing oxygen, cardiac monitoring leads, and all devices. Patient currently does not have IV in as she has removed all IVs placed today. Patients pulse ox drops to the low 80's rapidly, and patient continues to state, 'I'm
sorry, I forgot, I wont do it again', then removes all devices moments later. Contacted GURU Nathan, order placed for b/l wrist restraints as patient continuing to removed devices. Patient upset with restraints at first, called daughter
Zara. Zara called this RN a short time later and apologized for her mothers behavior and explains that she is normally not 'like this'. Active listening provided, RN reviewed safety concerns with patient removing o2 and rapid drop in o2
sats, removing iv's, etc. Zara verbalizes understanding and appreciation for staff.
Patient c/o headache and requests something to help her sleep. RN again discussed with GURU Nathan. Order placed for Melatonin 5mg. PRN Tylenol and Melatonin administered as ordered.
IV placed in right hand at this time. Patient tolerated well. Will continue to monitor patient closely.
[2025-05-17] VITALS (24 sets, daily range): BP systolic 111–154; BP diastolic 50–86; BMI 36.0
[2025-05-17] MEDS: ATARAX 25 MG PO ×2 (00:09→20:42)
--- NOTE | 2025-05-17 00:45 | PTCARENOTE ---
Patient c/o itching and restless, PRN Atarax administered as ordered. Patient continues to be restless and removing devices while restrained, however less often. RN continues to educate patient on restraint use and importance of wearing o2 as pox
drops quickly to the low 80's when o2 is removed. Patient states, 'I dont even know I'm doing it'. RN will continue to educate, will continue to monitor closely.
[2025-05-17] MEDS: SYNTHROID 150 MCG PO (05:41)
[2025-05-17 05:45] LABS: Hematocrit 37.9 % (37.0-47.0); Hemoglobin 11.1 g/dL (12.0-16.0); Mean Corp Hgb Conc. 29.3 g/dL (33.0-37.0); Mean Corpuscular Hgb 26.4 pg (27.0-31.0); Mean Platelet Volume 9.3 fL (7.4-10.4); Platelet Count 262 10^3/uL (130-400); Red Blood Cell Count 4.21 10^6/uL (4.20-5.40); Red Cell Dist. Width 18.4 % (11.5-14.5); White Blood Cell Count 8.4 10^3/uL (4.8-10.8)
[2025-05-17 06:22] LABS: Blood Urea Nitrogen 33 mg/dl (7-17); Calcium 8.7 mg/dl (8.4-10.2); Carbon Dioxide 30 mmol/L (22-30); Chloride 103 mmol/L (98-107); Estimated Creatinine Clearance 55 ml/min; Glucose 131 mg/dl (70-99); Potassium 4.3 mmol/L (3.5-5.1); Sodium 140 mmol/L (135-145); eGFR > 60.00
[2025-05-17] MEDS: DUONEB 3 ML INH ×4 (07:29→20:00)
[2025-05-17 08:15] LABS: Glucose - Point of Care 122 mg/dl (70-99)
[2025-05-17] MEDS: NOVOLOG FLEXPEN-LOW RESISTANCE SC (08:35)
[2025-05-17] MEDS: SENOKOT-S 2 TABLET PO (09:37)
[2025-05-17] MEDS: DELTASONE 30 MG PO (09:37)
[2025-05-17] MEDS: LEXAPRO 10 MG PO (09:37)
[2025-05-17] MEDS: LOW STRENGTH ASPIRIN 81 MG PO (09:37)
[2025-05-17] MEDS: MIRALAX 17 GRAMS PO (09:37)
[2025-05-17] MEDS: NORVASC 10 MG PO (09:37)
[2025-05-17] MEDS: HYDROCORTISONE 2.5% CREAM 1 APPLIC TOPICAL ×2 (09:38→20:42)
[2025-05-17] MEDS: PROTONIX 20 MG PO (09:38)
[2025-05-17] MEDS: WELLBUTRIN XL (24 hour extended release) 150 MG PO (09:38)
[2025-05-17] MEDS: LASIX 40 MG IV (09:38)
[2025-05-17] MEDS: FARXIGA 10 MG PO (09:39)
--- NOTE | 2025-05-17 11:38 | W.PN.HOSP.TC ---
Today's Communication/Plan
-
avoid sedative
wean restraints
encourage/reorient needs to wear bipap and nc
lama/laba on dc
for return to snf when able to maintain off restraints.
Assessment / Plan
Assessment / Plan
NAD
Scleral Anicteric
MMM
No JVD
CTABL
RRR, S1/S2
Morbidly obese, soft, NT, ND, BS+
Warm, Dry
AAOx3
Calm
Acute on suspect chronic hypoxemic hypercapnic respiratory failure
- Continue BiPAP nightly as needed
Maintain SpO2 greater than 88 to 92%
Pulmonary following
Avoid sedative
Keeps pulling off bipap, nc and IV lines, currently restraints, thought she is aaox3, states she does not remember these events
On dc should have a Lama/Laba inhaler per pulm
COPD
Started prednisone 30 mg discontinue IV ABG in the a.m. O2 intermittent continue DuoNeb
Acute on chronic heart failure with preserved EF
Continue IV Lasix
Follow renal function
Daily weight
Keep K greater than 4 magnesium greater than 2
Telemetry monitoring
Type 2 diabetes
Accu-Chek sliding scale long and short acting insulin
Goal blood glucose 140-180
Hypothyroidism
Continue levothyroxine
Anticipated Discharge: 24 - 48 hours
Subjective/Interval History
-
Date of Service: May 17, 2025
seen and examined. no new complains. no acute overnight events
Objective Data
-
Labs:
Laboratory Results
05/17/25
05:38
WBC 8.4
Hgb 11.1 L
Hct 37.9
Plt Count 262
Sodium 140
Potassium 4.3
Chloride 103
Carbon Dioxide 30
BUN 33 H
Creatinine 0.9
Glucose 131 H
Calcium 8.7
Vital Signs:
Vital Signs
Temp Pulse Resp BP Pulse Ox
97.7 F 64 16 141/73 90
05/17/25 07:05 05/17/25 11:25 05/17/25 11:25 05/17/25 11:00 05/17/25 11:25
I&O
05/16/25 05/17/25 05/18/25
06:59 06:59 06:59
Intake Total 200 / 200 480 / 480
Output Total 1600 / 1600 1400 / 1400
Balance -1400 / -1400 -920 / -920
[2025-05-17] MEDS: NOVOLOG FLEXPEN-LOW RESISTANCE 1 UNITS SC (13:52)
[2025-05-17 14:02] LABS: Glucose - Point of Care 181 mg/dl (70-99)
[2025-05-17 17:48] LABS: Glucose - Point of Care 288 mg/dl (70-99)
[2025-05-17] MEDS: NOVOLOG FLEXPEN-LOW RESISTANCE 3 UNITS SC (17:59)
[2025-05-17] MEDS: LOVENOX 40 MG SC (18:00)
[2025-05-17] MEDS: MELATONIN 5 MG PO (20:42)
[2025-05-17] MEDS: SENOKOT-S PO (20:42)
[2025-05-17] MEDS: CRESTOR 40 MG PO (20:42)
[2025-05-17] MEDS: NEURONTIN 100 MG PO (20:42)
[2025-05-17] MEDS: LANTUS 0.35 UNITS SC (21:41)
[2025-05-17 21:48] LABS: Glucose - Point of Care 197 mg/dl (70-99)
--- NOTE | 2025-05-17 22:44 | PTCARENOTE ---
Patient aao x3, however remains forgetful and continues to require frequent reminders and continued restraints as she removes lines, devices, oxygen, etc. Patient removing o2 while restrained at times, o2 sat quickly drops to low 80%'s, rebounds
within minutes when o2 n/c replaced. Patient continues to state that she forgets, affect pleasant. Patient had large soft bm earlier this shift, hygiene provided. Sacrum intact, foam applied for prevention. Call marcano within reach, will continue to
monitor patient closely.
[2025-05-18] VITALS (24 sets, daily range): BP systolic 118–148; BP diastolic 54–115; BMI 35.0
[2025-05-18] MEDS: SYNTHROID 150 MCG PO (05:21)
[2025-05-18] MEDS: DUONEB 3 ML INH ×4 (07:24→19:12)
[2025-05-18 07:55] LABS: Glucose - Point of Care 94 mg/dl (70-99)
[2025-05-18] MEDS: NOVOLOG FLEXPEN-LOW RESISTANCE SC (08:17)
[2025-05-18] MEDS: FARXIGA 10 MG PO (08:29)
[2025-05-18] MEDS: NORVASC 10 MG PO (08:29)
[2025-05-18] MEDS: SENOKOT-S 2 TABLET PO ×2 (08:29→20:25)
[2025-05-18] MEDS: PROTONIX 20 MG PO (08:29)
[2025-05-18] MEDS: WELLBUTRIN XL (24 hour extended release) 150 MG PO (08:29)
[2025-05-18] MEDS: DELTASONE 30 MG PO (08:29)
[2025-05-18] MEDS: LOW STRENGTH ASPIRIN 81 MG PO (08:29)
[2025-05-18] MEDS: LASIX 40 MG IV (08:29)
[2025-05-18] MEDS: LEXAPRO 10 MG PO (08:29)
[2025-05-18] MEDS: MIRALAX 17 GRAMS PO (08:30)
[2025-05-18] MEDS: HYDROCORTISONE 2.5% CREAM 1 APPLIC TOPICAL ×2 (08:30→20:24)
--- NOTE | 2025-05-18 10:11 | W.PN.HOSP.TC ---
Today's Communication/Plan
-
wean off O2
cont Lasix, labs in AM
check TSH
Assessment / Plan
Assessment / Plan
NAD
Scleral Anicteric
MMM
No JVD
CTABL
RRR, S1/S2
Morbidly obese, soft, NT, ND, BS+
Warm, Dry
AAOx2 not to time
Calm, confused
Acute on suspect chronic hypoxemic hypercapnic respiratory failure
Continue BiPAP nightly as needed - patient unfortunately declining
Maintain SpO2 greater than 88 to 92%
Pulmonary following
Avoid sedative
Keeps pulling off bipap, nc and IV lines, currently restraints, thought she is aaox3, states she does not remember these events
On dc should have a Lama/Laba inhaler per pulm
COPD
Started prednisone 30 mg discontinue IV ABG in the a.m. O2 intermittent continue DuoNeb
Acute on chronic heart failure with preserved EF
Continue IV Lasix
Follow renal function
Daily weight
Keep K greater than 4 magnesium greater than 2
Telemetry monitoring
Type 2 diabetes
Accu-Chek sliding scale long and short acting insulin
Goal blood glucose 140-180
Hypothyroidism
Continue levothyroxine
check TSH
Mild anemia
outpatient follow up with PCP
Anticipated Discharge: 24 - 48 hours
Subjective/Interval History
-
Date of Service: May 18, 2025
Objective Data
-
Vital Signs:
Vital Signs
Temp Pulse Resp BP Pulse Ox
97.5 F 60 14 135/55 98
05/18/25 07:36 05/18/25 08:29 05/18/25 08:00 05/18/25 08:29 05/18/25 08:59
I&O
05/17/25 05/18/25 05/19/25
06:59 06:59 06:59
Intake Total 480 / 480
Output Total 1400 / 1400 700 / 700
Balance -920 / -920 -700 / -700
Review of Systems
-
Unable to obtain full review of systems at this time due to: Dementia
History Source: Patient
Physical Exam
-
General: Comfortable
HEENT: Normocephalic
Respiratory: Clear to Auscultation
Cardiac: Regular Rhythm
GI: Soft, Nontender and Nondistended
Neuro: Awake and Alert
Psych: Confused
--- NOTE | 2025-05-18 10:23 | PTCARENOTE ---
Assumed care of patient at beginning of this shift from previous RN with 5L n/c in use. RT weaned to 4L with POx 98%. Patient remains in b/l soft wrist restraints d/t reports of multiple attempts by patient to remove telemetry wires, IV site and
oxygen. Patient refused bipap. Ox2-3, forgetful. Reviewed all with Dr Panchal when at bedside to see patient. He stated ok to continue to wean oxygen. Currently weaned to 3L with POx 95% while asleep. Patient refused breakfast this morning despite
multiple tries and encouragement. See worklist for full assessment and vital signs.
[2025-05-18 11:33] LABS: TSH 6.75 uIU/ml (0.47-4.68)
--- NOTE | 2025-05-18 11:44 | PN.CDI ---
Addendum entered and electronically signed by Favio Panchal MD 05/18/25 12:05:
no addition to be made
Original Note:
CDI
- -
CDI:
Physician Documentation Request
Admit Date: 05/14/25 23:04
Dear Doctor Ansley,
Progress note states 'Acute on suspect chronic hypoxemic hypercapnic respiratory failure'
Pulmonary note states 'History of COPD, on home O2 intermittently'
Please clarify acuity of respiratory failure:
Chronic requiring continuos home o2 use
Hypoxia requiring intermittent home o2 use.
Other
Use of terms such as suspected, likely, concern for, or probable (associated with a specific diagnosis that is being evaluated, monitored, or treated as if it exists) are acceptable and can be coded in the inpatient setting, when documented at the
time of discharge.
Thank you,
Arcelia Cao RN, BSN
CDI Specialist
tiger text
Please use your independent medical judgment in providing your response.
--- NOTE | 2025-05-18 11:49 | PN.CDI ---
Addendum entered and electronically signed by Favio Panchal MD 05/18/25 12:04:
no addition to be made
Original Note:
CDI
- -
CDI:
Physician Documentation Request
Admit Date: 05/14/25 23:04
Dear Doctor Ansley,
Patient presented to ED with complaints of shortness of breath and altered mental status. The patient ' initially experienced in-and-out consciousness at home, prompting a call to EMS' - Patient found to be in heart failure. H&P list history of CVA
and dementia.
05/15 HUMAN RESOURCES OPERATIONS COORDINATOR note states 'Patient agitated this am pulling off her bipap. CO2 zen overnight and Resp adjusted settings. Placed oxygen NC but she continually screaming for nursing to leave. Haldol IM x1 along with wrist restraints at least until calmed'
05/16 nursing notes states ' Patient continuously removing oxygen, cardiac monitoring leads, and all devices....patient continues to state, 'I'm sorry, I forgot, I wont do it again', then removes all devices moments later.....order placed for b/l
wrist restraints....Zara called this RN a short time later and apologized for her mothers behavior and explains that she is normally not 'like this'.
Based on the above, could you clarify in the Progress Notes the most likely etiology of the confusion/altered mental status.
Encephalopathy - indicate type, such as metabolic, toxic, septic, alcoholic, anoxic, hypertensive etc. due to a specific condition such as UTI, CVA, hyponatremia etc.
Dementia with acute delirium - indicate type fo dementia, such as Alzheimer's, senile, vascular, Lewy body etc.
Acute Delirium - indicate known or suspected etiology such as postoperative, due to opioids or other drugs etc. Can also indicate unknown or mixed etiologies.
Baseline Dementia - indicate type, such as Alzheimer's, senile, vascular, Lewy body etc., and any associated behavioral disturbances (aggressive, combative or violent behavior) if present
Acute or subacute confusional state due to ____ (specify known or suspected etiology)
Other
Use of terms such as suspected, likely, concern for, or probable (associated with a specific diagnosis that is being evaluated, monitored, or treated as if it exists) are acceptable and can be coded in the inpatient setting, when documented at the
time of discharge.
Thank you,
Arcelia Cao RN, BSN
CDI Specialist
tiger text
Please use your independent medical judgment in providing your response.
[2025-05-18 12:22] LABS: Glucose - Point of Care 156 mg/dl (70-99)
[2025-05-18] MEDS: NOVOLOG FLEXPEN-LOW RESISTANCE 1 UNITS SC (12:46)
--- NOTE | 2025-05-18 14:16 | CM ---
CM reviewed chart
Pt remains in IMU with restraints and bipap needs
Update provided to [facility] admissions/Amanda who confirms pt is a bed-hold
Pt is not in memory unit at [facility]
Discharge Disposition- return to [facility]
--- NOTE | 2025-05-18 15:12 | PTCARENOTE ---
Attempts to further wean unsuccessful. Patient has removed oxygen several times despite b/l soft wrist restrains. Needed to increase to 4L n/c for a time. Current POx 92% on 3L n/c.
[2025-05-18 16:59] LABS: Glucose - Point of Care 310 mg/dl (70-99)
[2025-05-18] MEDS: LOVENOX 40 MG SC (17:30)
[2025-05-18] MEDS: NOVOLOG FLEXPEN-LOW RESISTANCE 4 UNITS SC (17:31)
--- NOTE | 2025-05-18 17:42 | PTCARENOTE ---
Oxygen weaned to 2L n/c; POx 91-92%. Daughter called to say she is bringing patient dinner from home.
[2025-05-18] MEDS: MELATONIN 5 MG PO (20:25)
[2025-05-18] MEDS: CRESTOR 40 MG PO (20:25)
[2025-05-18] MEDS: NEURONTIN 100 MG PO (20:25)
[2025-05-18 21:15] LABS: Glucose - Point of Care 172 mg/dl (70-99)
[2025-05-18] MEDS: LANTUS 0.35 UNITS SC (21:53)
[2025-05-18] MEDS: ATARAX 25 MG PO (21:53)
--- NOTE | 2025-05-18 22:17 | PTCARENOTE ---
Patient aao x3, forgetful and continues to attempt to remove lines and oxygen tubing. RN and RT discussed Bipap with patient, patient refusing to wear bipap at this time. Patient currently on o2 2L n/c pox 94%. Lungs dim throughout. Hygiene
provided, sacral foam remains c/d/i. Call marcano in hand. Will continue to monitor patient closely.
[2025-05-19] VITALS (24 sets, daily range): BP systolic 109–166; BP diastolic 51–84; BMI 34.6
[2025-05-19 04:23] LABS: Blood Urea Nitrogen 25 mg/dl (7-17); Calcium 9.2 mg/dl (8.4-10.2); Carbon Dioxide 32 mmol/L (22-30); Chloride 103 mmol/L (98-107); Estimated Creatinine Clearance 61 ml/min; Glucose 41 mg/dl (70-99); Magnesium 2.6 mg/dl (1.6-2.3); Potassium 3.7 mmol/L (3.5-5.1); Sodium 142 mmol/L (135-145); eGFR > 60.00
[2025-05-19] MEDS: DEXTROSE 50% SYRINGE 12.5 GRAMS IV (04:56)
[2025-05-19 05:06] LABS: Glucose - Point of Care 39 mg/dl (70-99)
[2025-05-19] MEDS: SYNTHROID 175 MCG PO (05:07)
--- NOTE | 2025-05-19 05:14 | PTCARENOTE ---
Patients blood glucose was 41 from am labs. Rn followed protocol, blood glucose increased to 110 after Dextrose prn administered. Patient states she, 'does not feel so good', however is speaking more and speech is clearer. Will continue to monitor
patient closely.
[2025-05-19 05:19] LABS: Glucose - Point of Care 110 mg/dl (70-99)
[2025-05-19 05:46] LABS: Glucose - Point of Care 83 mg/dl (70-99)
[2025-05-19 06:23] LABS: Glucose - Point of Care 90 mg/dl (70-99)
[2025-05-19] MEDS: DUONEB 3 ML INH ×4 (07:56→20:29)
[2025-05-19 08:02] LABS: Glucose - Point of Care 135 mg/dl (70-99)
[2025-05-19] MEDS: NOVOLOG FLEXPEN-LOW RESISTANCE SC ×2 (08:11→12:48)
[2025-05-19] MEDS: MIRALAX 17 GRAMS PO (08:37)
[2025-05-19] MEDS: WELLBUTRIN XL (24 hour extended release) 150 MG PO (08:37)
[2025-05-19] MEDS: FARXIGA 10 MG PO (08:37)
[2025-05-19] MEDS: SENOKOT-S 2 TABLET PO ×2 (08:37→21:23)
[2025-05-19] MEDS: DELTASONE 30 MG PO (08:37)
[2025-05-19] MEDS: PROTONIX 20 MG PO (08:37)
[2025-05-19] MEDS: LEXAPRO 10 MG PO (08:38)
[2025-05-19] MEDS: LASIX 40 MG IV (08:38)
[2025-05-19] MEDS: LOW STRENGTH ASPIRIN 81 MG PO (08:38)
[2025-05-19] MEDS: NORVASC 10 MG PO (08:38)
[2025-05-19] MEDS: HYDROCORTISONE 2.5% CREAM 1 APPLIC TOPICAL ×2 (08:44→21:22)
--- NOTE | 2025-05-19 10:56 | PTCARENOTE ---
Assumed care of patient at beginning of this shift from previous RN with b/l soft wrist restraints off from prior shift. Patient mostly sleeping this morning but easily aroused and able to take all po meds. She declined breakfast. Ox2-3 but
forgetful. POx 95-97% on 2l n/c. See worklist for full assessment and vital signs.
[2025-05-19 12:41] LABS: Glucose - Point of Care 132 mg/dl (70-99)
[2025-05-19 12:55] LABS: Glucose - Point of Care 139 mg/dl (70-99)
--- NOTE | 2025-05-19 14:53 | W.PN.HOSP.TC ---
Today's Communication/Plan
-
Assessment / Plan
Assessment / Plan
NAD
Scleral Anicteric
MMM
No JVD
CTABL
RRR, S1/S2
Morbidly obese, soft, NT, ND, BS+
Warm, Dry
AAOx2 not to time
Calm, confused
Acute on suspect chronic hypoxemic hypercapnic respiratory failure
Continue BiPAP nightly as needed -continues to decline however tells me that she does not remember declining use of BiPAP
Came off of restraints at 4 AM on 05/04/2025
Maintain SpO2 greater than 88 to 92%
Pulmonary signed off
Avoid sedative
Keeps pulling off bipap, nc and IV lines, currently restraints, thought she is aaox3, states she does not remember these events
On dc should have a Lama/Laba inhaler per pulm
COPD
Started prednisone 30 mg discontinue IV ABG in the a.m. O2 intermittent continue DuoNeb
Acute on chronic heart failure with preserved EF
Continue IV Lasix
Follow renal function
Daily weight
Keep K greater than 4 magnesium greater than 2
Telemetry monitoring
Type 2 diabetes
Accu-Chek sliding scale long and short acting insulin
Goal blood glucose 140-180
Hypothyroidism
Continue levothyroxine
TSH 6.1, continue current dose
Mild anemia
outpatient follow up with PCP
If able to remain off of restraints for more than 24 hours then likely able to be DC'd back to facility off sedatives and on LABA/LAMA along with oxygen and as needed/at bedtime BiPAP.
I spoke with Zara over the phone who is her daughter. Provided her with a full update of ICU to hold what could potentially happen with high CO2 levels which included altered mental status and slowing of the respiratory rate decreased
oxygenation and cardiac arrest anoxic brain injury. She is aware of these complications. She understands that her mom needs to wear the BiPAP mask. I informed her I am not sure how feasible it is at the facility. I did tell her mom goals are DO
NOT RESUSCITATE DO NOT INTUBATE and the only way to get high levels of CO2 off if related to the respiratory system would be via BiPAP. Unfortunately if lethargic not able to follow commands not able to pull the BiPAP mask off then this option is a
contraindication as she could potentially vomit and aspirate. If restrained she should not be using the BiPAP and the fear that if she does vomit if she could aspirate and would not be able to pull the mask offfast enough.
Anticipated Discharge: 24 - 48 hours
Subjective/Interval History
-
Date of Service: May 19, 2025
Seen and examined. No new complaints. Random BMP completed at 330. Blood glucose 41.
Objective Data
-
Labs:
Laboratory Results
05/19/25
03:28
Sodium 142
Potassium 3.7
Chloride 103
Carbon Dioxide 32 H
BUN 25 H
Creatinine 0.8
Glucose 41 L*
Calcium 9.2
Vital Signs:
Vital Signs
Temp Pulse Resp BP Pulse Ox
97.8 F 66 12 109/67 90
05/19/25 12:16 05/19/25 14:08 05/19/25 14:08 05/19/25 14:08 05/19/25 14:08
I&O
05/18/25 05/19/25 05/20/25
06:59 06:59 06:59
Intake Total 240 / 240
Output Total 700 / 700 500 / 500
Balance -700 / -700 -260 / -260
[2025-05-19] MEDS: NOVOLOG FLEXPEN-LOW RESISTANCE 4 UNITS SC (17:01)
[2025-05-19] MEDS: LOVENOX 40 MG SC (17:04)
--- NOTE | 2025-05-19 17:06 | CM ---
Patient from [facility] with Dx Acute hypoxemic hypercapnic respiratory failure, COPD, HF. O2 2L. Refusing BiPAP. Receiving IV Lasix. Per nurse notes; forgetful, bedrest, restraints removed during the night. PT 05/16; min assist
transfers, patient says she is nonambulatory at baseline recommends HH.
Plan return to [facility] when medically ready.
[2025-05-19 17:11] LABS: Glucose - Point of Care 330 mg/dl (70-99)
--- NOTE | 2025-05-19 18:17 | PTCARENOTE ---
Patient's daughter in to see patient; very tearful about patient and plan of care. Asked to speak with therapeutic case manager about hospice/plan of care on discharge. TT sent to [facility].
[2025-05-19] MEDS: CRESTOR 40 MG PO (21:23)
[2025-05-19] MEDS: NEURONTIN 100 MG PO (21:23)
[2025-05-19] MEDS: ATARAX 25 MG PO (21:23)
[2025-05-19] MEDS: TYLENOL 650 MG PO (21:23)
[2025-05-19] MEDS: MELATONIN 5 MG PO (21:23)
[2025-05-19 21:43] LABS: Glucose - Point of Care 196 mg/dl (70-99)
[2025-05-19] MEDS: LANTUS 0.2 UNITS SC (21:49)
[2025-05-20] VITALS (12 sets, daily range): BP systolic 100–142; BP diastolic 51–76; BMI 33.9
[2025-05-20] MEDS: BENADRYL 6.25 MG IV (01:25)
[2025-05-20 04:25] LABS: Hematocrit 37.2 % (37.0-47.0); Mean Corp Hgb Conc. 29.6 g/dL (33.0-37.0); Mean Corpuscular Hgb 26.1 pg (27.0-31.0); Mean Corpuscular Volume 88.4 fL (81.0-99.0); Mean Platelet Volume 9.9 fL (7.4-10.4); Platelet Count 227 10^3/uL (130-400); Red Blood Cell Count 4.21 10^6/uL (4.20-5.40); Red Cell Dist. Width 17.1 % (11.5-14.5); White Blood Cell Count 7.9 10^3/uL (4.8-10.8)
[2025-05-20 04:49] LABS: Blood Urea Nitrogen 25 mg/dl (7-17); Calcium 9.4 mg/dl (8.4-10.2); Carbon Dioxide 31 mmol/L (22-30); Chloride 103 mmol/L (98-107); Estimated Creatinine Clearance 69 ml/min; Glucose 157 mg/dl (70-99); Potassium 4.6 mmol/L (3.5-5.1); Sodium 139 mmol/L (135-145); eGFR > 60.00
[2025-05-20 04:54] LABS: Glucose - Point of Care 142 mg/dl (70-99)
--- NOTE | 2025-05-20 04:56 | PTCARENOTE ---
Over night patient remained off restraints. Pt did take out X2 IV's throughout night. Pt remains on 2L spo2 92-93% respiration even unlabored. Pt had complaints about itching and feeling restless. Night PHYSICAL THERAPIST CLINIC DIRECTOR made aware, [facility] one time given see mar
for medical scientist. Call marcano with in reach, bed alarm on.
[2025-05-20] MEDS: SYNTHROID 175 MCG PO (05:51)
[2025-05-20] MEDS: DUONEB INH ×2 (07:34→15:25)
[2025-05-20 08:18] LABS: Glucose - Point of Care 135 mg/dl (70-99)
[2025-05-20] MEDS: MIRALAX 17 GRAMS PO (08:28)
[2025-05-20] MEDS: WELLBUTRIN XL (24 hour extended release) 150 MG PO (08:28)
[2025-05-20] MEDS: NOVOLOG FLEXPEN-LOW RESISTANCE SC ×2 (08:28→11:29)
[2025-05-20] MEDS: FARXIGA 10 MG PO (08:28)
[2025-05-20] MEDS: LOW STRENGTH ASPIRIN 81 MG PO (08:28)
[2025-05-20] MEDS: SENOKOT-S 2 TABLET PO ×2 (08:28→19:41)
[2025-05-20] MEDS: LASIX 40 MG IV (08:29)
[2025-05-20] MEDS: LEXAPRO 10 MG PO (08:29)
[2025-05-20] MEDS: PROTONIX 20 MG PO (08:29)
[2025-05-20] MEDS: NORVASC 10 MG PO (08:29)
[2025-05-20] MEDS: HYDROCORTISONE 2.5% CREAM 1 APPLIC TOPICAL ×2 (08:29→19:41)
--- NOTE | 2025-05-20 09:36 | CM ---
Patient from [facility] with Dx Acute hypoxemic hypercapnic respiratory failure, COPD, HF. O2 2L. Per nurse; out of restraints, forgetful, restless, assist of 2, ate 100% breakfast.
Spoke with daughter Katheryn;
extensive conversation about her mother's status. Daughter expressed concern about her mother's ongoing restlessness and difficulty wearing O2 cannula, saying she also has restless legs. She feels her mother knows who she is and is usually
relaxed/comfortable at SNF. Provided update that her mother has new hospitalist today. Daughter asking for more conversation from MD about her mother's status and also asking for Palliative Care---> message sent to Dr Montgomery who will ask
Palliative Care to see her.
Plan follow up after seen by Palliative Care.
--- NOTE | 2025-05-20 10:25 | PTCARENOTE ---
Assumed care of patient at beginnig of this shift from previous RN. Patient Ox2-3 but forgetful and needs reminders to keep oxygen on as well as monitor. IV site wrapped to prevent patient from pulling out d/t forgetfulness. Pleasant and
cooperative; took all po meds without difficultly. This RN received TT from ZAID Cantu that she spoke with daughter and daughter is requesting palliative care. Dr Montgomery currently at bedside to see patient. See worklist for full assessment and vital
signs.
[2025-05-20] MEDS: DUONEB 3 ML INH ×3 (11:15→19:18)
[2025-05-20 11:27] LABS: Glucose - Point of Care 136 mg/dl (70-99)
--- NOTE | 2025-05-20 12:50 | W.PN.HOSP.TC ---
Today's Communication/Plan
-
check echo
iv lasix
palliative care eval
Assessment / Plan
Assessment / Plan
#Acute on suspect chronic hypoxemic hypercapnic respiratory failure likely 2/2 MARY vs. [facility]SA vs. polypharmacy
Continue BiPAP nightly as needed -continues to decline however tells me that she does not remember declining use of BiPAP
Came off of restraints at 4 AM on 05/04/2025
Maintain SpO2 greater than 88 to 92%
Pulmonary signed off
Avoid sedative
Keeps pulling off bipap, nc and IV lines,
On dc should have a Lama/Laba inhaler per pulm
palliative care eval
#COPD
completed steroids
cont bronchodilators
#Acute on chronic heart failure with preserved EF
Continue IV Lasix
Follow renal function
Daily weight-lost 10 kg
Keep K greater than 4 magnesium greater than 2
check echo
Telemetry monitoring
Type 2 diabetes
Accu-Chek sliding scale long and short acting insulin
Goal blood glucose 140-180
Hypothyroidism
Continue levothyroxine
TSH 6.1, continue current dose
Mild anemia
outpatient follow up with PCP
DVT ppx-lovenox
Anticipated Discharge: > 48 hours
Subjective/Interval History
-
Date of Service: May 20, 2025
on oxygen
Objective Data
-
Labs:
Laboratory Results
05/20/25
04:09
WBC 7.9
Hgb 11.0 L
Hct 37.2
Plt Count 227
Sodium 139
Potassium 4.6
Chloride 103
Carbon Dioxide 31 H
BUN 25 H
Creatinine 0.7
Glucose 157 H
Calcium 9.4
Vital Signs:
Vital Signs
Temp Pulse Resp BP Pulse Ox
97.7 F 60 14 119/53 93
05/20/25 11:05 05/20/25 11:17 05/20/25 11:17 05/20/25 08:00 05/20/25 11:30
I&O
05/19/25 05/20/25 05/21/25
06:59 06:59 06:59
Intake Total 240 / 240 480 / 480
Output Total 500 / 500 1000 / 1000
Balance -260 / -260 -520 / -520
Physical Exam
-
General: Well Developed, Well Nourished and Comfortable
HEENT: Normocephalic and Oxygen
Respiratory: Rhonchi
Cardiac: Regular Rhythm and S1/S2
Breast: Deferred by me
GI: Soft, Nontender, Nondistended and Normal Bowel Sounds
Rectal: Deferred by Provider
Neuro: Awake and Nonfocal/Grossly Intact
Psych: Confused
Data Reviewed
-
Total Time Spent with Patient (in minutes): 55
[2025-05-20] MEDS: NOVOLOG FLEXPEN-LOW RESISTANCE 1 UNITS SC (15:46)
[2025-05-20] MEDS: NEURONTIN 200 MG PO ×2 (15:47→21:41)
[2025-05-20] MEDS: FEOSOL 325 MG PO (15:47)
[2025-05-20 15:56] LABS: Glucose - Point of Care 196 mg/dl (70-99)
--- NOTE | 2025-05-20 16:33 | W.CON.PAL ---
Consultation
-
Date/Time Consultation Requested: 05/20
Date/Time Consultation Performed: 05/20
Performing Provider: Veronica GARVEY
Reason for Consult: Goals of Care Discussion
Reason for Admission
Illness Course/HPI
75 year old F with history of COPD on intermittent oxygen at 2 to 4 L, insulin-dependent diabetes, hypertension, hyperlipidemia, CHF, dementia, morbid obesity, hypothyroidism admitted with hypoxia and AMS.
On arrival to ED satting 94% on 5 L. She was hemodynamically stable. chest xray with pulmonary edema. ABG 7.3/66/106/[address] with PE protocol with no evidence of PE. She was placed on bipap based on ABG results with improvement in her mental
status. Eventually was weaned to nasal cannula. Course c/b delirium/agitation requiring restraints. Was pulling off bipap and iv lines. Pulm following and feel likely has MARY - recommend outpatient sleep study.
Consult for GOC.
Spoke with patients daughter Zara at her request. States that hospice was brought up to her but she doesnt feel her mother is there yet. Patient is a LTC resident at [facility]. Has not had a hospitalization for pulmonary related issues in a very long
time. Was ambulating with assistance of a walker, able to make needs known. Needed assistance with ADLs and was incontinent but was not end stage dementia. Daughter feels she needs to give her some time before putting her on hospice. Feels her
anxeity and restless leg contributes to her pulling at lines, discussed can look at meds and see if we can make changes but sometimes difficult due to side effects and hypoventilation which she understands. Right now, she would like her to try to
get back to rehab at [facility] and see how she does. If she continues to get sick and come back and forth to the hospital, she would not want this and would puruse hospice at that time. Confirmed DNR/DNI.
Objective Data
-
Objective Data:
Vital Signs
Temp Pulse Resp BP Pulse Ox
98.1 F 60 19 100/52 91
05/20/25 15:00 05/20/25 16:00 05/20/25 16:00 05/20/25 14:00 05/20/25 16:00
Laboratory Results
05/20/25 04:09
05/20/25 04:09
Total Protein 7.0 g/dl (6.3-8.2) 05/14/25 18:21
Albumin 3.9 g/dl (3.5-5.0) 05/14/25 18:21
TSH 6.75 uIU/ml (0.47-4.68) H 05/17/25 05:38
Urine Color Yellow 05/14/25 20:17
Urine Clarity Clear (Clear) 05/14/25 20:17
Urine pH 5.0 (5.0-9.0) 05/14/25 20:17
Ur Specific [place] 1.015 (<1.030) 05/14/25 20:17
Urine Ketones Negative (Negative) 05/14/25 20:17
Urine Bilirubin Negative (Negative) 05/14/25 20:17
Palliative Performance Scale
Palliative Performance Scale:
PPS Level Ambulation Activity & Evidence of Disease Self Care Intake Conscious Level
100% Full Normal Activity & Work; Full Intake Full
No Evidence of Disease
90% Full Normal Activity & Work; Full Normal Full
Some Evidence of Disease
80% Full Normal Activity with Effort Full Normal or Full
Some Evidence of Disease Reduced
70% Reduced Unable Normal Job/Work Full Normal or Full
Significant Disease Reduced
60% Reduced Unable Hobby/Housework Occasional Normal or Full or Confusion
Significant Disease Assistance Reduced
50% Mainly Sit/Lie Unable to do Any Work Considerable Normal or Full or Confusion
Extensive Disease Assistance Req'd Reduced
40% Mainly in Bed Unable to do Most Activity Mainly Assistance Normal or Full or Drowsy;
Extensive Disease Reduced +/- Confusion
30% Totally Bed Unable to do Any Activity Total Care Normal or Full or Drowsy;
Bound Extensive Disease Reduced +/- Confusion
20% Totally Bed Bound Unable to do Any Activity Total Care Minimal to Full or Drowsy;
Extensive Disease Sips +/- Confusion
10% Totally Bed Bound Unable to do Any Activity Total Care Mouth Care Drowsy or Coma;
Extensive Disease Only +/- Confusion
0%
PPS Score Level:
Assessment / Plan
-
Assessment/Plan:
- patients daughter not interested in hospice, feels mother is improving slowly and goal is rehab
- will pursue hospice if continues to get sick and come back and forth to the hospital but right now is trying to get back to rehab.
- consider increasing gabapentin to help with restless leg/anxiety to 300mg TID
Care Reviewed
Data Reviewed
Radiology procedure: Image Reviewed
Reviewed with: Patient and Physician
[2025-05-20] MEDS: LOVENOX 40 MG SC (17:18)
--- NOTE | 2025-05-20 21:00 | PTCARENOTE ---
Pt received from dayshift RN. Pt answers all orientation questions, can be forgetful at times. bed alarm in use. pulls at oxygen tubing and needs reminding to wear it. Pt on 2L 02 and satting 92%. assessment as documented. call light in reach.
[2025-05-20] MEDS: MELATONIN 5 MG PO (21:41)
[2025-05-20] MEDS: CRESTOR 40 MG PO (21:41)
[2025-05-20] MEDS: LANTUS 0.2 UNITS SC (21:42)
[2025-05-20 21:49] LABS: Glucose - Point of Care 215 mg/dl (70-99)
[2025-05-20] MEDS: TYLENOL 650 MG PO (22:44)
[2025-05-21] VITALS (12 sets, daily range): BP systolic 105–135; BP diastolic 48–120; BMI 34.0
[2025-05-21] MEDS: SYNTHROID 175 MCG PO (04:43)
[2025-05-21 06:12] LABS: Blood Urea Nitrogen 25 mg/dl (7-17); Calcium 8.8 mg/dl (8.4-10.2); Carbon Dioxide 31 mmol/L (22-30); Chloride 103 mmol/L (98-107); Estimated Creatinine Clearance 60 ml/min; Glucose 82 mg/dl (70-99); Magnesium 2.3 mg/dl (1.6-2.3); Potassium 4.8 mmol/L (3.5-5.1); Sodium 140 mmol/L (135-145); eGFR > 60.00
[2025-05-21] MEDS: DUONEB 3 ML INH ×4 (07:34→20:10)
[2025-05-21 08:27] LABS: Glucose - Point of Care 80 mg/dl (70-99)
[2025-05-21] MEDS: NOVOLOG FLEXPEN-LOW RESISTANCE SC (08:31)
[2025-05-21] MEDS: NORVASC 10 MG PO (08:32)
[2025-05-21] MEDS: LEXAPRO 10 MG PO (08:32)
[2025-05-21] MEDS: PROTONIX 20 MG PO (08:32)
[2025-05-21] MEDS: LOW STRENGTH ASPIRIN 81 MG PO (08:32)
[2025-05-21] MEDS: LASIX 40 MG IV (08:33)
[2025-05-21] MEDS: NEURONTIN 200 MG PO ×3 (08:33→21:50)
[2025-05-21] MEDS: WELLBUTRIN XL (24 hour extended release) 150 MG PO (08:33)
[2025-05-21] MEDS: FARXIGA 10 MG PO (08:33)
[2025-05-21] MEDS: HYDROCORTISONE 2.5% CREAM 1 APPLIC TOPICAL ×2 (08:34→21:54)
[2025-05-21] MEDS: MIRALAX PO (08:35)
[2025-05-21] MEDS: SENOKOT-S PO ×2 (08:36→20:02)
[2025-05-21 12:16] LABS: Glucose - Point of Care 161 mg/dl (70-99)
--- NOTE | 2025-05-21 12:23 | W.PN.HOSP.TC ---
Today's Communication/Plan
-
IV lasix
dnr
hopefully transition to po lasix in 24-48h
trend cr
Assessment / Plan
Assessment / Plan
#Acute on suspect chronic hypoxemic hypercapnic respiratory failure likely 2/2 MARY vs. [facility]SA vs. polypharmacy
Continue BiPAP nightly as needed -continues to decline however tells me that she does not remember declining use of BiPAP
Came off of restraints at 4 AM on 05/04/2025
Maintain SpO2 greater than 88 to 92%
Pulmonary signed off
Avoid sedative
Keeps pulling off bipap, nc and IV lines at times
On dc should have a Lama/Laba inhaler per pulm
palliative care eval
#COPD
completed steroids
cont bronchodilators
#Acute on chronic heart failure with preserved EF
Continue IV Lasix
Follow renal function
Daily weight-lost 10 kg
Keep K greater than 4 magnesium greater than 2
Echo with EF of 60 to 65%. No regional wall motion Abnormalities. Normal right ventricular size and function. Moderate mitral stenosis. Mild aortic regurgitation. PASP of 45�50.
Cont with farxiga
Telemetry monitoring
Type 2 diabetes
Accu-Chek sliding scale long and short acting insulin
Goal blood glucose 140-180
Hypothyroidism
Continue levothyroxine
TSH 6.1, continue current dose
Mild anemia
outpatient follow up with PCP
Restless leg syndrome/neuropathy
Restarted gabapentin at the lower dose
DVT ppx-lovenox
DNR/DNI
Patient was eval by palliative care with plan to continue with current measures. Please see palliative care note for complete details.
Anticipated Discharge: 24 - 48 hours
Subjective/Interval History
-
Date of Service: May 21, 2025
Denied any cramping of the legs or restless leg symptoms
Objective Data
-
Labs:
Laboratory Results
05/21/25
05:30
Sodium 140
Potassium 4.8
Chloride 103
Carbon Dioxide 31 H
BUN 25 H
Creatinine 0.8
Glucose 82
Calcium 8.8
Vital Signs:
Vital Signs
Temp Pulse Resp BP Pulse Ox
98.5 F 58 14 115/56 94
05/21/25 11:58 05/21/25 11:06 05/21/25 11:06 05/21/25 10:00 05/21/25 11:06
I&O
05/20/25 05/21/25 05/22/25
06:59 06:59 06:59
Intake Total 480 / 480 840 / 840
Output Total 1000 / 1000 1400 / 1400
Balance -520 / -520 -560 / -560
Physical Exam
-
General: Well Developed, Well Nourished and Comfortable
HEENT: Normocephalic and Oxygen
Respiratory: Rhonchi
Cardiac: Regular Rhythm and S1/S2
Breast: Deferred by me
GI: Soft, Nontender, Nondistended and Normal Bowel Sounds
Rectal: Deferred by Provider
Neuro: Awake and Nonfocal/Grossly Intact
Psych: Confused
[2025-05-21] MEDS: NOVOLOG FLEXPEN-LOW RESISTANCE 300 UNITS SC ×2 (14:05→16:39)
[2025-05-21 14:14] LABS: Glucose - Point of Care 180 mg/dl (70-99)
[2025-05-21 16:49] LABS: Glucose - Point of Care 151 mg/dl (70-99)
[2025-05-21] MEDS: LOVENOX 40 MG SC (17:38)
[2025-05-21] MEDS: TYLENOL 650 MG PO (20:00)
[2025-05-21 21:44] LABS: Glucose - Point of Care 196 mg/dl (70-99)
[2025-05-21] MEDS: LANTUS 0.2 UNITS SC (21:49)
[2025-05-21] MEDS: CRESTOR 40 MG PO (21:50)
[2025-05-21] MEDS: MELATONIN 5 MG PO (21:50)
[2025-05-22] VITALS (13 sets, daily range): BP systolic 98–148; BP diastolic 52–72; BMI 33.6
--- NOTE | 2025-05-22 00:18 | PTCARENOTE ---
Pt received from previous RN. Pt answers all orientation questions, forgetful at times. daughter at bedside. satting 94% on 2L. inc of urine. barrier cream applied to groin and sacrum. assessment as documented. call light in reach.
[2025-05-22] MEDS: SYNTHROID 175 MCG PO (05:36)
[2025-05-22 06:10] LABS: Blood Urea Nitrogen 25 mg/dl (7-17); Calcium 8.9 mg/dl (8.4-10.2); Carbon Dioxide 32 mmol/L (22-30); Chloride 101 mmol/L (98-107); Estimated Creatinine Clearance 48 ml/min; Glucose 158 mg/dl (70-99); Magnesium 2.2 mg/dl (1.6-2.3); Potassium 4.5 mmol/L (3.5-5.1); Sodium 139 mmol/L (135-145); eGFR 58.39
[2025-05-22] MEDS: DUONEB 3 ML INH ×4 (07:24→20:17)
[2025-05-22 07:55] LABS: Glucose - Point of Care 145 mg/dl (70-99)
[2025-05-22] MEDS: NOVOLOG FLEXPEN-LOW RESISTANCE SC (07:56)
[2025-05-22] MEDS: PROTONIX 20 MG PO (08:09)
[2025-05-22] MEDS: WELLBUTRIN XL (24 hour extended release) 150 MG PO (08:09)
[2025-05-22] MEDS: LOW STRENGTH ASPIRIN 81 MG PO (08:09)
[2025-05-22] MEDS: LEXAPRO 10 MG PO (08:10)
[2025-05-22] MEDS: MIRALAX PO (08:10)
[2025-05-22] MEDS: NORVASC PO (08:10)
[2025-05-22] MEDS: NEURONTIN 200 MG PO ×3 (08:10→21:27)
[2025-05-22] MEDS: FARXIGA 10 MG PO (08:10)
[2025-05-22] MEDS: LASIX 40 MG IV (08:11)
[2025-05-22] MEDS: SENOKOT-S PO (08:11)
[2025-05-22] MEDS: HYDROCORTISONE 2.5% CREAM 1 APPLIC TOPICAL ×2 (08:12→19:53)
--- NOTE | 2025-05-22 10:21 | W.PN.HOSP.TC ---
Addendum entered and electronically signed by Sridhar Montgomery MD 05/22/25 10:32:
Updated daughter Zara over the phone in details. Answered all her questions to her satisfaction.
Original Note:
Today's Communication/Plan
-
monitor mentation
IV lasix
wean o2 as tolerated
Assessment / Plan
Assessment / Plan
#Acute on suspect chronic hypoxemic hypercapnic respiratory failure likely 2/2 MARY vs. OHSA vs. polypharmacy
Continue BiPAP nightly as needed -continues to decline however tells me that she does not remember declining use of BiPAP
Came off of restraints at 4 AM on 05/04/2025
Maintain SpO2 greater than 88 to 92%
Pulmonary signed off
Avoid sedative
Keeps pulling off bipap, nc and IV lines at times
On dc should have a Lama/Laba inhaler per pulm
palliative care eval noted
#COPD
completed steroids
cont bronchodilators
#Acute on chronic heart failure with preserved EF
Continue IV Lasix
Follow renal function
Daily weight-losing weight
Keep K greater than 4 magnesium greater than 2
Echo with EF of 60 to 65%. No regional wall motion Abnormalities. Normal right ventricular size and function. Moderate mitral stenosis. Mild aortic regurgitation. PASP of 45�50.
Cont with farxiga
Telemetry monitoring
Type 2 diabetes
Accu-Chek sliding scale long and short acting insulin
Goal blood glucose 140-180
poc am 145
Hypothyroidism
Continue levothyroxine
TSH 6.1, continue current dose
Mild anemia
outpatient follow up with PCP
Restless leg syndrome/neuropathy
Restarted gabapentin at the lower dose 200mg TID
seems to be tolerating it well.
can slowly uptitrate if needed but need to monitor mentation closely
DVT ppx-lovenox
DNR/DNI
Patient was eval by palliative care with plan to continue with current measures. Please see palliative care note for complete details.
tx of out IMU
called daughter to update. no response. left vm for callback
Anticipated Discharge: 24 - 48 hours
Subjective/Interval History
-
Date of Service: May 22, 2025
remains on oxygen
intermittent confusion
Objective Data
-
Labs:
Laboratory Results
05/22/25
05:27
Sodium 139
Potassium 4.5
Chloride 101
Carbon Dioxide 32 H
BUN 25 H
Creatinine 1.0
Glucose 158 H
Calcium 8.9
Vital Signs:
Vital Signs
Temp Pulse Resp BP Pulse Ox
98.2 F 57 15 100/54 94
05/22/25 08:00 05/22/25 08:11 05/22/25 08:00 05/22/25 08:11 05/22/25 08:00
I&O
05/21/25 05/22/25 05/23/25
06:59 06:59 06:59
Intake Total 840 / 840 480 / 480
Output Total 1400 / 1400 1350 / 1350
Balance -560 / -560 -870 / -870
Physical Exam
-
General: Well Developed, Well Nourished and Comfortable
HEENT: Normocephalic and Oxygen
Respiratory: Rhonchi
Cardiac: Regular Rhythm and S1/S2
Breast: Deferred by me
GI: Soft, Nontender, Nondistended and Normal Bowel Sounds
Rectal: Deferred by Provider
Neuro: Awake and Nonfocal/Grossly Intact
Psych: Confused
Data Reviewed
-
Total Time Spent with Patient (in minutes): 55
[2025-05-22 11:49] LABS: Glucose - Point of Care 232 mg/dl (70-99)
[2025-05-22] MEDS: NOVOLOG FLEXPEN-LOW RESISTANCE 2 UNITS SC (12:00)
--- NOTE | 2025-05-22 14:19 | CM ---
Patient from [facility] with Dx Acute hypoxemic hypercapnic respiratory failure, COPD, HF. O2 2L. Receiving IV Lasix. PT 05/16; min assist for transfers, nonambulatory at baseline, recommendation HH. Per nurse; confused, forgetful. Out
of restraints since 05/19.
Messages with Dr Montgomery; patient may possibly be ready for d/c Sun 05/24.
Spoke with Amanda & Anuj, [facility], [facility];
they are able to accept the patient back on Sun 05/24 if she is medically ready and they were updated that patient remains on O2 2L.
The patient needs to remain out of restraints (for at least 24 hrs before d/c).
CM can contact SNF Nurse [facility] Care Sanitary Technician at [phone]. The ph for report to [address] , fax [phone].
Spoke with daughter Katheryn; she said it was helpful speaking with Palliative Care. She agrees with her mother returning to [facility] on Sun 05/24 if she remains stable.
Plan return to [facility], possibly Sun 05/24, if medically stable and out of restraints for 24 hrs.
[2025-05-22] MEDS: FEOSOL 325 MG PO (14:58)
--- NOTE | 2025-05-22 15:46 | PTCARENOTE ---
AOx3. Patient frequently forgetful and pulls off oxygen, BP cuff, and IV. Frequent reminders to not pull at equipment and take off oxygen. IV site is wrapped to prevent her from pulling it out. Bed alarm on and audible. 4L NC with SpO2 greater than
92%. NSR with first degree and sinus joseph on monitor. Incontinent to bladder. Purewick in place draining yellow urine. Call marcano within reach, bed in lowest position, and bed of wheels locked.
[2025-05-22 16:23] LABS: Glucose - Point of Care 183 mg/dl (70-99)
[2025-05-22] MEDS: TYLENOL 650 MG PO (17:10)
[2025-05-22] MEDS: LOVENOX 40 MG SC (17:10)
[2025-05-22] MEDS: NOVOLOG FLEXPEN-LOW RESISTANCE 1 UNITS SC (17:11)
[2025-05-22] MEDS: SENOKOT-S 2 TABLET PO (19:53)
--- NOTE | 2025-05-22 20:24 | PTCARENOTE ---
assumed care of pt from dayshift RN. Pt aaox3 and forgetful. NSR on monitor with first degree HB, hr 50-70s. Pt is 94% on 4L NC. Lungs diminished at the bases on auscultation. PW in place draining yellow urine. Hygiene completed. Pt resting in bed
with bed alarm on and call marcano in reach.
[2025-05-22 21:05] LABS: Glucose - Point of Care 217 mg/dl (70-99)
[2025-05-22] MEDS: CRESTOR 40 MG PO (21:27)
[2025-05-22] MEDS: LANTUS 0.2 UNITS SC (21:27)
[2025-05-22] MEDS: MELATONIN 5 MG PO (21:27)
[2025-05-23] VITALS (11 sets, daily range): BP systolic 106–131; BP diastolic 45–86; BMI 34.4
[2025-05-23] MEDS: SYNTHROID 175 MCG PO (04:43)
[2025-05-23] MEDS: TYLENOL 650 MG PO (04:56)
[2025-05-23 05:27] LABS: Blood Urea Nitrogen 25 mg/dl (7-17); Carbon Dioxide 32 mmol/L (22-30); Chloride 101 mmol/L (98-107); Estimated Creatinine Clearance 54 ml/min; Glucose 182 mg/dl (70-99); Magnesium 2.1 mg/dl (1.6-2.3); Potassium 3.8 mmol/L (3.5-5.1); Sodium 138 mmol/L (135-145); eGFR > 60.00
--- NOTE | 2025-05-23 07:59 | PTCARENOTE ---
Pt desat to 84% O2 to 4l O2. Pt sleeping at this time. Purewick in place. Incont B/B.
[2025-05-23] MEDS: DUONEB 3 ML INH ×4 (08:03→20:24)
[2025-05-23 08:40] LABS: Glucose - Point of Care 177 mg/dl (70-99)
[2025-05-23] MEDS: FARXIGA 10 MG PO (08:59)
[2025-05-23] MEDS: SENOKOT-S 2 TABLET PO ×2 (08:59→21:10)
[2025-05-23] MEDS: LEXAPRO 10 MG PO (08:59)
[2025-05-23] MEDS: PROTONIX 20 MG PO (08:59)
[2025-05-23] MEDS: WELLBUTRIN XL (24 hour extended release) 150 MG PO (08:59)
[2025-05-23] MEDS: NORVASC 10 MG PO (09:00)
[2025-05-23] MEDS: NEURONTIN 200 MG PO ×3 (09:00→21:11)
[2025-05-23] MEDS: LASIX 40 MG IV (09:01)
[2025-05-23] MEDS: LOW STRENGTH ASPIRIN 81 MG PO (09:01)
[2025-05-23] MEDS: MIRALAX 17 GRAMS PO (09:01)
[2025-05-23] MEDS: HYDROCORTISONE 2.5% CREAM 1 APPLIC TOPICAL ×2 (09:03→21:10)
[2025-05-23] MEDS: NOVOLOG FLEXPEN-LOW RESISTANCE 1 UNITS SC (09:04)
[2025-05-23] MEDS: NOVOLOG FLEXPEN-LOW RESISTANCE 3 UNITS SC (13:05)
[2025-05-23 13:07] LABS: Glucose - Point of Care 293 mg/dl (70-99)
--- NOTE | 2025-05-23 13:24 | W.PN.HOSP.TC ---
Today's Communication/Plan
-
IV Lasix. Discharge planning
Assessment / Plan
Assessment / Plan
Physical exam:
General: Acute on chronically ill
HEENT: Normocephalic, Atraumatic and Moist Mucous Membranes
Respiratory: Decreased breath sounds bilaterally; Negative Wheezes, Rales or Rhonchi
Cardiac: Regular Rhythm and S1/S2
GI: Soft, Nontender and Nondistended
Musculoskeletal: No Clubbing, No Cyanosis. Bilateral lower extremity edema
Neuro: Awake, Alert and Oriented, no gross neurological deficit but generalized weakness
Psych: Calm
A/P:
#Acute on suspect chronic hypoxemic hypercapnic respiratory failure likely 2/2 MARY vs. OHSA vs. polypharmacy
Continue BiPAP nightly as needed -continues to decline however tells me that she does not remember declining use of BiPAP
Came off of restraints at 4 AM on 05/04/2025
Maintain SpO2 greater than 88 to 92%
Pulmonary signed off
Avoid sedative
Keeps pulling off bipap, nc and IV lines at times
On dc should have a Lama/Laba inhaler per pulm
palliative care eval noted
Patient took off oxygen and pulse ox was 84%. Does not feel short of breath at rest. Her weight has gone up today so we will give her extra Lasix.
Discussed with daughter over the phone, Zara
Will likely need oxygen upon discharge
#Acute on chronic heart failure with preserved EF
Patient took off oxygen and pulse ox was 84%. Does not feel short of breath at rest. Her weight has gone up today.
Continue IV Lasix. Extra Lasix IV this afternoon if blood pressure tolerates
Follow renal function
Daily weight-losing weight
Keep K greater than 4 magnesium greater than 2
Echo with EF of 60 to 65%. No regional wall motion Abnormalities. Normal right ventricular size and function. Moderate mitral stenosis. Mild aortic regurgitation. PASP of 45�50.
Cont with farxiga
Telemetry monitoring
#COPD
completed steroids
cont bronchodilators
Type 2 diabetes
Accu-Chek sliding scale long and short acting insulin
Goal blood glucose 140-180
poc am 145
Hypothyroidism
Continue levothyroxine
TSH 6.1, continue current dose
Mild anemia
outpatient follow up with PCP
Restless leg syndrome/neuropathy
Restarted gabapentin at the lower dose 200mg TID
seems to be tolerating it well.
can slowly uptitrate if needed but need to monitor mentation closely
DVT ppx-lovenox
DNR/DNI
Patient was eval by palliative care with plan to continue with current measures. Please see palliative care note for complete details.
Time spent 51 minutes. More than 50% of time counseling coordination regarding diagnosis, labs, plan of care, treatment, prognosis.
Anticipated Discharge: 24 - 48 hours
Subjective/Interval History
-
Date of Service: May 23, 2025
Patient denies any chest pain or worsening shortness of breath. Remains on oxygen
Objective Data
-
Labs:
Laboratory Results
05/23/25
04:44
Sodium 138
Potassium 3.8
Chloride 101
Carbon Dioxide 32 H
BUN 25 H
Creatinine 0.9
Glucose 182 H
Calcium 9.0
Vital Signs:
Vital Signs
Temp Pulse Resp BP Pulse Ox
98 F 60 15 110/49 99
05/23/25 11:46 05/23/25 12:00 05/23/25 12:00 05/23/25 12:00 05/23/25 12:00
I&O
05/22/25 05/23/25 05/24/25
06:59 06:59 06:59
Intake Total 480 / 480 960 / 960
Output Total 1350 / 1350 350 / 350 700 / 700
Balance -870 / -870 610 / 610 -700 / -700
--- NOTE | 2025-05-23 15:05 | PTCARENOTE ---
Ptpulled out Iv refusing to have another inserted. DR Torres . Pt takes O2 off and takes POX off and BP cuff
[2025-05-23] MEDS: LOVENOX 40 MG SC (17:17)
[2025-05-23] MEDS: NOVOLOG FLEXPEN-LOW RESISTANCE 2 UNITS SC (17:20)
[2025-05-23 17:31] LABS: Glucose - Point of Care 237 mg/dl (70-99)
--- NOTE | 2025-05-23 20:01 | PTCARENOTE ---
assumed care of pt from dayshift RN. Pt aaox3 and frequently forgetful. Pt 95% on 4L NC. NSR on monitor with first degree. Hygiene completed. Pt resting in bed with call marcano in reach.
[2025-05-23] MEDS: LANTUS 0.2 UNITS SC (21:11)
[2025-05-23] MEDS: MELATONIN 5 MG PO (21:12)
[2025-05-23] MEDS: CRESTOR 40 MG PO (21:12)
[2025-05-23 21:22] LABS: Glucose - Point of Care 271 mg/dl (70-99)
[2025-05-24] VITALS (12 sets, daily range): BP systolic 96–141; BP diastolic 32–80; BMI 34.2
[2025-05-24 04:32] LABS: % Basophils 0.7 % (0-2); % Eosinophils 4.2 % (0-6); % Immature Granulocytes 0.5 % (0-0.5); % Lymphocytes 17.3 % (20.5-51.1); % Monocytes 8.8 % (1.7-9.3); % Neutrophils 68.5 % (42.2-75.2); Absolute Basophils 0.1 10^3/uL (0-0.2); Absolute Eosinophils 0.4 10^3/uL (0-0.7); Absolute Lymphocytes 1.4 10^3/uL (1.2-3.4); Absolute Monocytes 0.7 10^3/uL (0.1-0.6); Absolute Neutrophils 5.7 10^3/uL (1.4-6.5); Hematocrit 39.5 % (37.0-47.0); Hemoglobin 12.1 g/dL (12.0-16.0); Mean Corp Hgb Conc. 30.6 g/dL (33.0-37.0); Mean Corpuscular Hgb 26.4 pg (27.0-31.0); Mean Corpuscular Volume 86.2 fL (81.0-99.0); Nucleated Red Blood Cells % 0 %; Platelet Count 204 10^3/uL (130-400); Red Blood Cell Count 4.58 10^6/uL (4.20-5.40); White Blood Cell Count 8.3 10^3/uL (4.8-10.8)
[2025-05-24] MEDS: SYNTHROID 175 MCG PO (04:39)
[2025-05-24 04:50] LABS: Blood Urea Nitrogen 24 mg/dl (7-17); Calcium 8.8 mg/dl (8.4-10.2); Carbon Dioxide 28 mmol/L (22-30); Chloride 103 mmol/L (98-107); Estimated Creatinine Clearance 60 ml/min; Glucose 184 mg/dl (70-99); Magnesium 2.1 mg/dl (1.6-2.3); Potassium 3.6 mmol/L (3.5-5.1); Sodium 138 mmol/L (135-145); eGFR > 60.00
[2025-05-24] MEDS: DUONEB 3 ML INH ×4 (07:29→19:46)
[2025-05-24 07:48] LABS: Glucose - Point of Care 180 mg/dl (70-99)
[2025-05-24 08:01] LABS: Glucose - Point of Care 180 mg/dl (70-99)
[2025-05-24] MEDS: MIRALAX 17 GRAMS PO (08:46)
[2025-05-24] MEDS: NORVASC 10 MG PO (08:46)
[2025-05-24] MEDS: NOVOLOG FLEXPEN-LOW RESISTANCE 1 UNITS SC (08:46)
--- NOTE | 2025-05-24 08:48 | W.PN.HOSP.TC ---
Today's Communication/Plan
-
Diuretics. Oxygen. Discharge planning
Assessment / Plan
Assessment / Plan
Physical exam:
General: Acute on chronically ill
HEENT: Normocephalic, Atraumatic and Moist Mucous Membranes
Respiratory: Decreased breath sounds bilaterally; Negative Wheezes, Rales or Rhonchi
Cardiac: Regular Rhythm and S1/S2
GI: Soft, Nontender and Nondistended
Musculoskeletal: No Clubbing, No Cyanosis. Bilateral lower extremity edema
Neuro: Awake, Alert and Oriented, no gross neurological deficit but generalized weakness
Psych: Calm
A/P:
#Acute on suspect chronic hypoxemic hypercapnic respiratory failure likely 2/2 MARY vs. OHSA vs. polypharmacy
Continue BiPAP nightly as needed -continues to decline however tells me that she does not remember declining use of BiPAP
Came off of restraints at 4 AM on 05/04/2025
Maintain SpO2 greater than 88 to 92%
Pulmonary signed off
Avoid sedative
Keeps pulling off bipap, nc and IV lines at times
On dc should have a Lama/Laba inhaler per pulm
palliative care fahadal noted
Patient took off oxygen and pulse ox was 84%. Does not feel short of breath at rest. Her weight has gone up yesterday and given IV Lasix. Today her weight has come down. Her oxygenation is back to 4 L but we might be able to bring it down so we
will wean and reevaluate.
Discussed with daughter over the phone yesterday and today, Zara
Will likely need oxygen upon discharge--> will have a better idea of her oxygen needs over the next 24 hours.
#Acute on chronic heart failure with preserved EF
Will switch her IV Lasix to oral today and see how she responds
Follow renal function
Daily weight-losing weight
Keep K greater than 4 magnesium greater than 2
Echo with EF of 60 to 65%. No regional wall motion Abnormalities. Normal right ventricular size and function. Moderate mitral stenosis. Mild aortic regurgitation. PASP of 45�50.
Cont with farxiga
Telemetry monitoring
#COPD
completed steroids
cont bronchodilators
Type 2 diabetes
Accu-Chek sliding scale long and short acting insulin
Goal blood glucose 140-180
Hypothyroidism
Continue levothyroxine
TSH 6.1, continue current dose
Mild anemia
outpatient follow up with PCP
Restless leg syndrome/neuropathy
Restarted gabapentin at the lower dose 200mg TID
seems to be tolerating it well.
can slowly uptitrate if needed but need to monitor mentation closely
DVT ppx-lovenox
DNR/DNI
Patient was eval by palliative care with plan to continue with current measures. Please see palliative care note for complete details.
Time spent 35 minutes today
Anticipated Discharge: Within 24 hours
Subjective/Interval History
-
Date of Service: May 24, 2025
Patient feels better today. She is still on oxygen supplementation.
Objective Data
-
Labs:
Laboratory Results
05/24/25
04:03
WBC 8.3
Hgb 12.1
Hct 39.5
Plt Count 204
Sodium 138
Potassium 3.6
Chloride 103
Carbon Dioxide 28
BUN 24 H
Creatinine 0.8
Glucose 184 H
Calcium 8.8
Vital Signs:
Vital Signs
Temp Pulse Resp BP Pulse Ox
98.5 F 61 15 133/58 80
05/24/25 08:20 05/24/25 07:32 05/24/25 07:32 05/24/25 04:40 05/24/25 07:32
I&O
05/23/25 05/24/25 05/25/25
06:59 06:59 06:59
Intake Total 960 / 960 240 / 240
Output Total 350 / 350 1900 / 1900
Balance 610 / 610 -1660 / -1660
[2025-05-24] MEDS: LEXAPRO 10 MG PO (08:49)
[2025-05-24] MEDS: HYDROCORTISONE 2.5% CREAM 1 APPLIC TOPICAL ×2 (08:49→20:25)
[2025-05-24] MEDS: LOW STRENGTH ASPIRIN 81 MG PO (08:49)
[2025-05-24] MEDS: PROTONIX 20 MG PO (08:49)
[2025-05-24] MEDS: FARXIGA 10 MG PO (08:49)
[2025-05-24] MEDS: NEURONTIN 200 MG PO ×3 (08:49→20:26)
[2025-05-24] MEDS: WELLBUTRIN XL (24 hour extended release) 150 MG PO (08:49)
[2025-05-24] MEDS: SENOKOT-S 2 TABLET PO ×2 (08:49→20:25)
[2025-05-24] MEDS: LASIX IV (10:16)
[2025-05-24] MEDS: LASIX 40 MG PO (11:54)
[2025-05-24] MEDS: NOVOLOG FLEXPEN-LOW RESISTANCE 3 UNITS SC ×2 (11:55→17:23)
[2025-05-24 12:05] LABS: Glucose - Point of Care 274 mg/dl (70-99)
--- NOTE | 2025-05-24 14:33 | PTCARENOTE ---
Assumed care of patient at beginning of this shift from previous RN with O2 4l n/c in use. Able to wean to 2L with current POx 97%. Patient frequently removes n/c and POx will drop to 70s-80s; asymptomatic. Recovers quickly once placed on again.
Ox2-3; forgetful and pleasant. See worklist for full assessment and vital signs.
[2025-05-24 16:35] LABS: Glucose - Point of Care 266 mg/dl (70-99)
[2025-05-24] MEDS: LOVENOX 40 MG SC (17:24)
[2025-05-24] MEDS: MELATONIN 5 MG PO (20:25)
[2025-05-24] MEDS: TYLENOL 650 MG PO (20:26)
[2025-05-24] MEDS: CRESTOR 40 MG PO (20:26)
--- NOTE | 2025-05-24 20:35 | PTCARENOTE ---
assumed care of pt from dayshift RN. Pt aaox3 but frequently forgetful. Pt 95% on 2L NC. NSR on monitor with first degree. Hygiene completed. HOANG medications administered (see MAR). Pt resting in bed with bed alarm on and call marcano in reach.
[2025-05-24] MEDS: LANTUS 0.2 UNITS SC (21:36)
[2025-05-24 21:49] LABS: Glucose - Point of Care 269 mg/dl (70-99)
[2025-05-25] MEDS: SYNTHROID 175 MCG PO (05:29)
[2025-05-25 05:49] VITALS: BMI 35.0
[2025-05-25] MEDS: DUONEB 3 ML INH ×2 (07:45→11:38)
[2025-05-25 08:40] LABS: Glucose - Point of Care 192 mg/dl (70-99)
[2025-05-25 08:49] VITALS: BP 118/51
[2025-05-25] MEDS: SENOKOT-S 2 TABLET PO (08:51)
[2025-05-25] MEDS: FARXIGA 10 MG PO (08:51)
[2025-05-25] MEDS: NEURONTIN 200 MG PO (08:51)
[2025-05-25] MEDS: LEXAPRO 10 MG PO (08:51)
[2025-05-25] MEDS: PROTONIX 20 MG PO (08:51)
[2025-05-25] MEDS: NORVASC 10 MG PO (08:51)
[2025-05-25] MEDS: HYDROCORTISONE 2.5% CREAM 1 APPLIC TOPICAL (08:52)
[2025-05-25] MEDS: LOW STRENGTH ASPIRIN 81 MG PO (08:52)
[2025-05-25] MEDS: WELLBUTRIN XL (24 hour extended release) 150 MG PO (08:52)
[2025-05-25] MEDS: LASIX 40 MG PO (08:52)
[2025-05-25] MEDS: NOVOLOG FLEXPEN-LOW RESISTANCE 1 UNITS SC (08:52)
[2025-05-25] MEDS: MIRALAX PO (09:11)
--- NOTE | 2025-05-25 10:33 | W.PN.HOSP.TC ---
Today's Communication/Plan
-
Discharge planning today
Assessment / Plan
Assessment / Plan
Physical exam:
General:Chronically ill
HEENT: Normocephalic, Atraumatic and Moist Mucous Membranes
Respiratory: Decreased breath sounds bilaterally; Negative Wheezes, Rales or Rhonchi
Cardiac: Regular Rhythm and S1/S2
GI: Soft, Nontender and Nondistended
Musculoskeletal: No Clubbing, No Cyanosis. Bilateral lower extremity edema
Neuro: Awake, Alert and Oriented, no gross neurological deficit but generalized weakness and some cognitive deficits
Psych: Calm
A/P:
#Acute on suspect chronic hypoxemic hypercapnic respiratory failure likely 2/2 MARY vs. OHSA vs. polypharmacy
Continue BiPAP nightly as needed -continues to decline however tells me that she does not remember declining use of BiPAP
Came off of restraints at 4 AM on 05/04/2025
Maintain SpO2 greater than 88 to 92%
Pulmonary signed off
Avoid sedative
Keeps pulling off bipap, nc and IV lines at times
On dc should have a Lama/Laba inhaler per pulm
palliative care eval noted
Patient at times taken her oxygen off
Discussed with daughter over the phone yesterday and today, Zara
She needs oxygen upon discharge
#Acute on chronic heart failure with preserved EF
On oral Lasix
Follow renal function
Daily weight-losing weight
Keep K greater than 4 magnesium greater than 2
Echo with EF of 60 to 65%. No regional wall motion Abnormalities. Normal right ventricular size and function. Moderate mitral stenosis. Mild aortic regurgitation. PASP of 45�50.
Cont with farxiga
Telemetry monitoring
#COPD
completed steroids
cont bronchodilators
Type 2 diabetes
Accu-Chek sliding scale long and short acting insulin
Goal blood glucose 140-180
Hypothyroidism
Continue levothyroxine
TSH 6.1, continue current dose
Mild anemia
outpatient follow up with PCP
Restless leg syndrome/neuropathy
Restarted gabapentin at the lower dose 200mg TID
seems to be tolerating it well.
can slowly uptitrate if needed but need to monitor mentation closely
DVT ppx-lovenox
DNR/DNI
Patient was eval by palliative care with plan to continue with current measures. Please see palliative care note for complete details.
Anticipated Discharge: Today
Subjective/Interval History
-
Date of Service: May 25, 2025
No new events. Still takes her oxygen off at times.
Objective Data
-
Labs:
Laboratory Results
05/25/25
08:42
Sodium Pending
Potassium Pending
Chloride Pending
Carbon Dioxide Pending
BUN Pending
Creatinine Pending
Glucose Pending
Calcium Pending
Vital Signs:
Vital Signs
Temp Pulse Resp BP Pulse Ox
98.2 F 60 18 118/51 96
05/25/25 07:51 05/25/25 08:00 05/25/25 08:00 05/25/25 08:52 05/25/25 09:35
I&O
05/24/25 05/25/25 05/26/25
06:59 06:59 06:59
Intake Total 240 / 240 480 / 480
Output Total 1900 / 1900 1125 / 1125 800 / 800
Balance -1660 / -1660 -645 / -645 -800 / -800
--- NOTE | 2025-05-25 10:39 | W.DCSUMMARY ---
Discharge Summary
Discharge Data
Date of Admission: 05/14/25
Date of Discharge: 05/25/25
Total time spent discharging patient (in min): 37
-
Pending Results: No
Hospital Course
Patient 75-year-old female history of COPD, hypertension, diabetes mellitus, CHF, morbid obesity, dementia, hypothyroidism, presented to the hospital hypoxia hypercapnia and shortness of breath and altered mental status. Pulmonary was consulted.
Patient respiratory failure was felt to be multifactorial including MARY, OHS, COPD, medications related, and heart failure. Patient was placed on BiPAP and then switched to nighttime BiPAP. Her medications were discontinued including Atarax,
gabapentin, and oxycodone. Atarax and gabapentin were subsequently restarted at a lower dose and she tolerated well. She finished a course of steroids. She also received IV diuresis throughout this hospital stay. Given her multiple comorbidities
and guarded prognosis palliative care was consulted. Family discussed with palliative and they would like to continue restorative treatment although they understand prognosis is guarded and if she does continue to deteriorate as outpatient they
will consider hospice as outpatient. Patient was eligible for long-term at skilled rehab. Patient will be discharged in relatively stable condition today.
Discharge duration: 37 minutes
Discharge Plan
-
Patient Disposition: Skilled Nursing/SNF
Discharge Diagnosis/Procedures: Acute onn chronic hypoxic respiratory failure. Acute on chronic diastolic congestive heart failure.
Diet: Low Cholesterol, 2 Gram Sodium, Diabetic, Carb Controlled and Restrict fluids to 48 oz
Activity: As tolerated
Blood Work: Please PCP to order CBC, BMP within 1 week
Specialty Instructions: Weigh Daily- Call MD for wt gain/loss 3 lbs overnight/5 lbs in 1 week
Referrals:
Evelyn Berumen MD [Active, Pulmonary Medicine] - in four to six weeks
Long Blunt DO [Family Provider, Family Practice] - in less than 1 week
Veronica Cornell NP [Specified Professional Personl, Palliative Care] - in one to two weeks
Prescriptions:
New
gabapentin 100 mg Capsule
200 mg PO TID 30 Days Qty: 180 0RF
Continued
acetaminophen [Tylenol Extra Strength] 500 mg Tablet
1,000 mg PO Q12H
magnesium hydroxide [Milk of Magnesia] 400 mg/5 mL Suspension
2,400 mg PO HSPRN PRN (Reason: constipation)
amlodipine [Norvasc] 10 mg Tablet
10 mg PO DAILY
bisacodyl [Dulcolax (bisacodyl)] 10 mg Suppository
10 mg NM [id number] PRN (Reason: no BM and MOM/lactulose ineffective)
escitalopram oxalate [Lexapro] 10 mg Tablet
10 mg PO DAILY
rosuvastatin [Crestor] 40 mg Tablet
40 mg PO HS
insulin glargine [Basaglar KwikPen U-100 Insulin] 100 unit/mL (3 mL) Insulin Pen
35 unit SC HS
sennosides-docusate sodium [Senna-S] 8.6-50 mg Tablet
2 tab PO BID
levothyroxine 150 mcg Tablet
150 mcg PO DAILY
furosemide 40 mg Tablet
40 mg PO DAILY Qty: 30 0RF
dapagliflozin propanediol 10 mg Tablet
10 mg PO DAILY
aspirin 81 mg Tablet,Chewable
81 mg PO DAILY
ferrous sulfate 325 mg (65 mg iron) Tablet
325 mg PO MOWEFR@1430
therapeutic multivitamin Tablet
1 tab PO DAILY
polyethylene glycol 3350 17 gram/dose powder
17 g PO DAILY Qty: 510 0RF
acetaminophen [Tylenol] 325 mg Tablet
650 mg PO Q4H MDD 3000mg/24hrs PRN (Reason: mild pain/fever>100.4)
miconazole nitrate [Desenex] 2 % Powder
1 applic TOPICAL DAILY PRN (Reason: apply under B/L breast)
pantoprazole 20 mg Tablet,Delayed Release (Dr/Ec)
20 mg PO DAILY
hydrocortisone 2.5 % Cream
1 applic TOPICAL Q12H
Patient Comments:
05/14/2025, x 14 days starting 05/12/2025.
hydroxyzine HCl 25 mg Tablet
25 mg PO Q6HPRN PRN (Reason: pruritus)
insulin lispro [Admelog SoloStar U-100 Insulin] 100 unit/mL Insulin Pen
1 sliding scale dose SC DIRECTED
Rx Instructions:
05/14/2025, if blood sugar <70 = initiate hypoglycemic protocol; 0-200 = 0 units; 201-250 = 2 units; 251-300 = 4 units; 301-350 = 6 units; 351-400 = 8 units; >400 = 10 units.
bupropion HCl 150 mg Tablet Extended Release 24 Hr
150 mg PO DAILY
benzocaine-menthol 6-10 mg Lozenge
1 anoop MUCOUS MEMBRANE Q6HPRN PRN (Reason: dry throat)
diclofenac sodium 1 % Gel
2 g TOPICAL QID PRN (Reason: apply to right shoulder)
Discontinued
gabapentin 300 mg Capsule
600 mg PO TID
oxycodone 5 mg Tablet
5 mg PO Q6HPRN PRN (Reason: moderate pain)
gabapentin 100 mg Capsule
100 mg PO HS
naloxone 4 mg/actuation [place],Non-Aerosol
1 spray INTRANASAL Q2-3M PRN (Reason: opioid overdose)
Discharge Orders:
Discharge Patient (As Directed); Ordered 05/25/25
Ordered By: Chacorta Torres
Discharge Date and Time
Discharge Date/Time: 05/25/25 13:22
Print Language: GREEK
--- NOTE | 2025-05-25 10:53 | CM ---
Patient from [facility] with Dx Acute hypoxemic hypercapnic respiratory failure, COPD, HF. O2 2L. Per nurse; confused, forgetful. Out of restraints since 05/19.
Met with patient and spoke with daughter Zara by phone on speaker phone in patient's room;
both agree with d/c today back to [facility]. IMM completed. Daughter aware of transport time.
Spoke with Amanda, [facility], [facility];
provided clinical update and [facility] updated. They are able to accept the patient back today. The ph for report to [address] , fax [phone].
Plan return to [facility] today by ambulance.
--- NOTE | 2025-05-25 11:03 | PTCARENOTE ---
Assumed care of pt from wood mechanist RN. AAOx3, but frequently forgetful. Bed alarm in place. NSR on tele, HRs 60s. SpO2 92% on 2L NC. Assessment documented. Pt to be discharged back to [facility] today. Report called to facility. Pick-up time
set for 1230.
[2025-05-25 12:23] VITALS: BP 122/54
[2025-05-25 12:33] LABS: Glucose - Point of Care 204 mg/dl (70-99)
[2025-05-25] MEDS: NOVOLOG FLEXPEN-LOW RESISTANCE 2 UNITS SC (12:39)
[2025-05-25 14:32] LABS: Blood Urea Nitrogen 20 mg/dl (7-17); Calcium 9.2 mg/dl (8.4-10.2); Carbon Dioxide 32 mmol/L (22-30); Chloride 102 mmol/L (98-107); Estimated Creatinine Clearance 61 ml/min; Glucose 204 mg/dl (70-99); Potassium 3.7 mmol/L (3.5-5.1); Sodium 141 mmol/L (135-145); eGFR > 60.00
== END 2025-05-25 13:22 | DRG 291 ==
LOC: IMU 23:04
PROVIDERS: Hospitalist; Internal Medicine; Nurse Practitioner Family; ADMITTING PHYSICIAN Internal Medicine; ATTENDING PHYSICIAN Hospitalist; CONSULT PHYSICIAN Internal Medicine; CONSULT PHYSICIAN Nurse Practitioner Gerontology; EMERGENCY PHYSICIAN Emergency Medicine; FAMILY PHYSICIAN Student in an Organized Health Care Education/Training Program
PROC: 5A09357 Assistance with Respiratory Ventilation, Less than 24 Consecutive Hours, Continuous Positive Airway Pressure (ICD-10-PCS; 2025-05-14)
DX: I11.0 Hypertensive heart disease with heart failure (principal); I50.33 Acute on chronic diastolic (congestive) heart failure; J96.21 Acute and chronic respiratory failure with hypoxia; J96.22 Acute and chronic respiratory failure with hypercapnia; J44.1 Chronic obstructive pulmonary disease with (acute) exacerbation; F03.94 Unspecified dementia, unspecified severity, with anxiety; G47.33 Obstructive sleep apnea (adult) (pediatric); Z79.890 Hormone replacement therapy; K59.00 Constipation, unspecified; Z79.4 Long term (current) use of insulin; E03.9 Hypothyroidism, unspecified; E11.9 Type 2 diabetes mellitus without complications; E78.00 Pure hypercholesterolemia, unspecified; E66.01 Morbid (severe) obesity due to excess calories; Z68.34 Body mass index [BMI] 34.0-34.9, adult; Z86.73 Personal history of transient ischemic attack (TIA), and cerebral infarction without residual deficits; Z87.891 Personal history of nicotine dependence; Z79.82 Long term (current) use of aspirin; Z79.899 Other long term (current) drug therapy; Z99.81 Dependence on supplemental oxygen; Z78.1 Physical restraint status; Z66 Do not resuscitate; G25.81 Restless legs syndrome; D50.9 Iron deficiency anemia, unspecified; G89.29 Other chronic pain; I48.91 Unspecified atrial fibrillation; K21.9 Gastro-esophageal reflux disease without esophagitis; Z11.52 Encounter for screening for COVID-19
CPT/HCPCS: 71045; 71275; 80048; 80053; 81003; 81015; 82805; 82962; 83735; 83880; 84145; 84443; 84484; 85025; 85027; 87086; 87502; 87811; 93005; 93306; 94640; 94660; 96374; 97162; 99291; J1610; Q9967

== ENCOUNTER → 2025-06-04 10:06 | Outpatient (REF) | payer OTHER, MEDICARE, SELFPAY ==
[2025-06-04 10:24] LABS: Hematocrit 37.3 % (37.0-47.0); Hemoglobin 11.3 g/dL (12.0-16.0); Mean Corp Hgb Conc. 30.3 g/dL (33.0-37.0); Mean Corpuscular Volume 87.4 fL (81.0-99.0); Nucleated Red Blood Cells % 0 %; Platelet Count 288 10^3/uL (130-400); Red Cell Dist. Width 17.8 % (11.5-14.5)
[2025-06-04 10:35] LABS: ALT (SGPT) < 10 U/L (0-35); AST (SGOT) 16 U/L (14-36); Albumin 3.6 g/dl (3.5-5.0); Alkaline Phosphatase 76 U/L (38-126); Blood Urea Nitrogen 16 mg/dl (7-17); Calcium 9.0 mg/dl (8.4-10.2); Carbon Dioxide 26 mmol/L (22-30); Chloride 107 mmol/L (98-107); Glucose 199 mg/dl (70-99); Potassium 3.6 mmol/L (3.5-5.1); Sodium 140 mmol/L (135-145); Total Protein 6.2 g/dl (6.3-8.2); eGFR > 60.00
[2025-06-04 11:06] LABS: TSH 3.87 uIU/ml (0.47-4.68)
== END ==
LOC: OLABN 10:06
PROVIDERS: ATTENDING PHYSICIAN Student in an Organized Health Care Education/Training Program
DX: E03.9 Hypothyroidism, unspecified (principal); I50.32 Chronic diastolic (congestive) heart failure
CPT/HCPCS: 36415; 80053; 84439; 84443; 85025

== ENCOUNTER → 2025-07-03 12:00 | Outpatient (REF) | payer OTHER, MEDICARE, SELFPAY ==
[2025-07-03 13:49] LABS: Hematocrit 36.9 % (37.0-47.0); Hemoglobin 11.0 g/dL (12.0-16.0); Mean Corp Hgb Conc. 29.8 g/dL (33.0-37.0); Mean Corpuscular Volume 88.9 fL (81.0-99.0); Nucleated Red Blood Cells % 0 %; Platelet Count 280 10^3/uL (130-400); Red Cell Dist. Width 19.3 % (11.5-14.5)
[2025-07-03 16:08] LABS: Blood Urea Nitrogen 17 mg/dl (7-17); Calcium 8.8 mg/dl (8.4-10.2); Carbon Dioxide 30 mmol/L (22-30); Glucose 247 mg/dl (70-99); eGFR > 60.00
[2025-07-03 16:22] LABS: Chloride 100 mmol/L (98-107); Potassium 3.4 mmol/L (3.5-5.1); Sodium 137 mmol/L (135-145)
== END ==
LOC: OLABN 12:00
PROVIDERS: ATTENDING PHYSICIAN Student in an Organized Health Care Education/Training Program
DX: I50.32 Chronic diastolic (congestive) heart failure (principal); D50.9 Iron deficiency anemia, unspecified
CPT/HCPCS: 36415; 80048; 85025

== ENCOUNTER → 2025-07-09 10:43 | Outpatient (REF) | payer OTHER, MEDICARE, SELFPAY ==
[2025-07-09 12:10] LABS: Hematocrit 37.0 % (37.0-47.0); Hemoglobin 10.8 g/dL (12.0-16.0); Mean Corp Hgb Conc. 29.2 g/dL (33.0-37.0); Mean Corpuscular Volume 92.0 fL (81.0-99.0); Nucleated Red Blood Cells % 0 %; Platelet Count 293 10^3/uL (130-400); Red Cell Dist. Width 19.1 % (11.5-14.5)
[2025-07-09 12:34] LABS: Blood Urea Nitrogen 22 mg/dl (7-17); Calcium 8.8 mg/dl (8.4-10.2); Carbon Dioxide 32 mmol/L (22-30); Chloride 97 mmol/L (98-107); Glucose 316 mg/dl (70-99); Potassium 4.8 mmol/L (3.5-5.1); Sodium 137 mmol/L (135-145); eGFR 58.39
== END ==
LOC: OLABN 10:43
PROVIDERS: ATTENDING PHYSICIAN Student in an Organized Health Care Education/Training Program
DX: I50.32 Chronic diastolic (congestive) heart failure (principal); E78.5 Hyperlipidemia, unspecified; D50.9 Iron deficiency anemia, unspecified
CPT/HCPCS: 36415; 80048; 85025

== ENCOUNTER 2025-07-12 03:50 | Inpatient (IN) | payer MEDICARE, OTHER, SELFPAY ==
[2025-07-11 23:00] VITALS: BP 95/84
[2025-07-11 23:02] VITALS: BP 95/84
[2025-07-11 23:15] VITALS: BMI 39.1
[2025-07-12] VITALS (12 sets, daily range): BP systolic 103–127; BP diastolic 41–90; BMI 38.4
[2025-07-12 00:42] LABS: ALT (SGPT) < 10 U/L (0-35); AST (SGOT) 12 U/L (14-36); Albumin 3.5 g/dl (3.5-5.0); Alkaline Phosphatase 79 U/L (38-126); Blood Urea Nitrogen 24 mg/dl (7-17); Calcium 8.3 mg/dl (8.4-10.2); Carbon Dioxide 33 mmol/L (22-30); Chloride 100 mmol/L (98-107); Estimated Creatinine Clearance 58 ml/min; Glucose 253 mg/dl (70-99); Potassium 4.3 mmol/L (3.5-5.1); Sodium 138 mmol/L (135-145); Total Protein 6.4 g/dl (6.3-8.2); eGFR > 60.00
[2025-07-12 01:08] LABS: Hematocrit 32.1 % (37.0-47.0); Hemoglobin 9.5 g/dL (12.0-16.0); Mean Corp Hgb Conc. 29.6 g/dL (33.0-37.0); Mean Corpuscular Volume 90.9 fL (81.0-99.0); Nucleated Red Blood Cells % 0.2 %; Platelet Count 266 10^3/uL (130-400); Red Cell Dist. Width 19.1 % (11.5-14.5)
--- NOTE | 2025-07-12 01:16 | ED.GENMED ---
History of Present Illness
General
Chief Complaint: Breathing Problem
Source: patient, ambulance crew and alf
Exam Limitations: none
Time Seen by Provider: 07/12/25 00:11
Nursing documentation reviewed up to this point in time: agreed with
History of Present Illness
History of Present Illness:
75-year-old female pacemaker history of A-fib CHF previous DVT hypertension presenting to the emergency department with concerns of low pulse ox and shortness of breath at home. Typically wears oxygen at night but was not wearing it. Pulse ox into
the 70s she was then put back onto the nasal cannula had improving pulse ox was given a DuoNeb normal pulse ox on arrival here. Denies any ongoing symptoms here.
Past History
Past History
ED Past Medical History: Arrthythmia (Atrial fib), CVA (Right sided weakness, ), GERD, HTN, IDDM, Hypothyroidism and Other (DVT Internal jugular, UTI, Iron def anemia, )
ED Past Surgical History: Tonsilectomy and Other (Hernia repair)
Social History
Tobacco: Former smoker
Alcohol: None
Personal:
Living: alf
Review of Systems
Review of Systems
Allergies reviewed?: Yes
All Other Systems: ROS reviewed and negative except as documented in HPI and ROS
Phy Exam
Physical Exam
Physical Exam:
GENERAL: Alert , in no apparent distress
EYE: pupils equal and reactive
NECK: Supple, no significant adenopathy.
ENT: o/p clr, mmm.
CARDIAC: Regular rate and rhythm .
LUNGS: Slight expiratory wheeze diffusely
ABDOMEN: Soft, without focal tenderness, no r/g, no cvat
NEUROLOGICAL: Alert and oriented, no focal neuro deficits
SKIN: Warm and dry, skin intact.
MUSCULOSKELETAL: No edema, well perfused.
PSYCH: Normal and appropriate interaction.
Scores
Heart Failure Risk
Heart Failure Risk Score: Not Applicable
Course
Orders/Labs/Results
Orders:
Orders
07/12/25 00:13
Complete Blood Count/With Diff Urgent
Comprehensive Metabolic Panel Urgent
07/12/25 00:21
EKG [Electrocardiogram (*1)] Urgent
Reason for Study: Shortness of Breath
Chest [CR Chest - 2 Views ] Urgent
Comment:
Reason For Exam: sob
07/12/25 00:22
EKG- Treatment ONCE
07/12/25 02:16
Furosemide [Lasix] 40 mg IV NOW STA
07/12/25 02:23
BNP [NT-proBNP] Urgent
Abnormal Lab Results
07/12/25
00:13
RBC 3.53 L 10^6/uL
(4.20-5.40)
Hgb 9.5 L g/dL
(12.0-16.0)
Hct 32.1 L %
(37.0-47.0)
MCH 26.9 L pg
(27.0-31.0)
MCHC 29.6 L g/dL
(33.0-37.0)
RDW 19.1 H %
(11.5-14.5)
Abs Immat Gran (auto) 0.1 H 10^3/uL
(0-0.05)
Immature Gran % 1.3 H %
(0-0.5)
Lymphocytes % 17.5 L %
(20.5-51.1)
Carbon Dioxide 33 H mmol/L
(22-30)
BUN 24 H mg/dl
(7-17)
Glucose 253 H mg/dl
(70-99)
Calcium 8.3 L mg/dl
(8.4-10.2)
AST 12 L U/L
(14-36)
07/12/25 00:13
07/12/25 00:13
Vital Signs
Initial and Last Documented VS:
Initial Vital Signs
BP
95/84
07/11/25 23:00
Last Documented Vital Signs
Temp Pulse Resp BP Pulse Ox
98.1 F 60 13 115/46 99
07/11/25 23:02 07/12/25 02:26 07/12/25 01:45 07/12/25 02:26 07/12/25 01:45
MDM/Problems Addressed
MDM/Problems Addressed:
75-year-old female presenting with concerns of low pulse ox shortness of breath prior to arrival. Was sleeping had the nasal cannula off that she typically does wear. Pulse ox into the 70s. This was placed back on and given a DuoNeb and route via
EMS pulse ox now in the 90s on 4 L nasal cannula which is her typical use. Was here chest x-ray was performed that did show significant edema. Seems to be worsened than previous. Additionally her weight significant increased over the past few
months since previous visit. Concern for potential worsening heart failure. Patient given dose of Lasix but will need admission for diuresis as she has been taking her home oral medications. Has had some developing shortness of breath over the
past week or 2.
*Pulse Oximetry
SaO2: 96
Nasal Cannula flow liters per minute: 5
Oxygen Mode of Delivery: Room air
Patient hypoxic: no (99)
*Critical Care Note
Total Time (30-74mins, 75-104mins- exclusive of procedures): Not Applicable
ED Attending Note
-
Portions of this chart may have been created with voice recognition software.� Occasional wrong word or��sound alike� substitutions may have occurred due to the inherent limitations of voice recognition software.
Discharge Plan
Departure
Patient Disposition: Admit
Date of Disposition: 07/12/25
Time of Disposition: 02:37
Admit to: Telemetry
Admit to doctor: Luciano
Presentation/result/management discussed w/ accepting MD/DO: Hospitalist
Patient with high blood pressure during this ER visit?: No
Condition: Good
Covid-19: Not Applicable
Discharge Problem:
Acute exacerbation of CHF (congestive heart failure)
Prescriptions:
No Action
acetaminophen [Tylenol Extra Strength] 500 mg Tablet
1,000 mg PO Q12H
magnesium hydroxide [Milk of Magnesia] 400 mg/5 mL Suspension
2,400 mg PO HSPRN PRN (Reason: constipation)
amlodipine [Norvasc] 10 mg Tablet
10 mg PO DAILY
bisacodyl [Dulcolax (bisacodyl)] 10 mg Suppository
10 mg IA [id number] PRN (Reason: no BM and MOM/lactulose ineffective)
escitalopram oxalate [Lexapro] 10 mg Tablet
10 mg PO DAILY
rosuvastatin [Crestor] 40 mg Tablet
40 mg PO HS
insulin glargine [Basaglar KwikPen U-100 Insulin] 100 unit/mL (3 mL) Insulin Pen
35 unit SC HS
sennosides-docusate sodium [Senna-S] 8.6-50 mg Tablet
2 tab PO BID
levothyroxine 150 mcg Tablet
150 mcg PO DAILY
furosemide 40 mg Tablet
40 mg PO DAILY Qty: 30 0RF
dapagliflozin propanediol 10 mg Tablet
10 mg PO DAILY
aspirin 81 mg Tablet,Chewable
81 mg PO DAILY
ferrous sulfate 325 mg (65 mg iron) Tablet
325 mg PO MOWEFR@1430
therapeutic multivitamin Tablet
1 tab PO DAILY
polyethylene glycol 3350 17 gram/dose powder
17 g PO DAILY Qty: 510 0RF
acetaminophen [Tylenol] 325 mg Tablet
650 mg PO Q4H MDD 3000mg/24hrs PRN (Reason: mild pain/fever>100.4)
miconazole nitrate [Desenex] 2 % Powder
1 applic TOPICAL DAILY PRN (Reason: apply under B/L breast)
pantoprazole 20 mg Tablet,Delayed Release (Dr/Ec)
20 mg PO DAILY
hydrocortisone 2.5 % Cream
1 applic TOPICAL Q12H
Patient Comments:
05/14/2025, x 14 days starting 05/12/2025.
hydroxyzine HCl 25 mg Tablet
25 mg PO Q6HPRN PRN (Reason: pruritus)
insulin lispro [Admelog SoloStar U-100 Insulin] 100 unit/mL Insulin Pen
1 sliding scale dose SC DIRECTED
Rx Instructions:
05/14/2025, if blood sugar <70 = initiate hypoglycemic protocol; 0-200 = 0 units; 201-250 = 2 units; 251-300 = 4 units; 301-350 = 6 units; 351-400 = 8 units; >400 = 10 units.
bupropion HCl 150 mg Tablet Extended Release 24 Hr
150 mg PO DAILY
benzocaine-menthol 6-10 mg Lozenge
1 anoop MUCOUS MEMBRANE Q6HPRN PRN (Reason: dry throat)
diclofenac sodium 1 % Gel
2 g TOPICAL QID PRN (Reason: apply to right shoulder)
gabapentin 100 mg Capsule
200 mg PO TID 30 Days Qty: 180 0RF
Referrals:
Long Blunt DO [Family Provider, Family Practice]
Interventions
Interventions:
*Risk Screen - Suicide Last Done: 07/11/25 23:02
*General Assessment Last Done: 07/11/25 23:02
*Neglect/Abuse Screening Last Done: 07/11/25 23:02
*ED- Fall Risk Assessment Last Done: 07/11/25 23:15
*ED COVID-19 Vaccine History Last Done: 07/11/25 23:15
ED- Cardiac Assessment Last Done: 07/11/25 23:15
ED- Pulmonary Assessment Last Done: 07/11/25 23:15
Discharge Date and Time
Print Language: TURKISH
[2025-07-12] MEDS: LASIX 40 MG IV ×3 (02:26→16:53)
--- NOTE | 2025-07-12 03:13 | HPS.HSE ---
Family Physician
-
Family Physician: Long Blunt,
Chief Complaint
-
Short of breath
History of Present Illness
This is a 75-year-old female with h/o A-fib CHF previous DVT hypertension, COPD on 2 L home O2, IDDM, presenting to the emergency department with concerns of low pulse ox and shortness of breath at home.
Typically wears oxygen at night but was not wearing it. Pulse ox into the 70s she was then put back onto the nasal cannula had improving pulse ox was given a DuoNeb normal pulse ox on arrival here. Denies any ongoing symptoms here.
Is noted that she has had significant weight gain in the past 2 months since discharge of about approximately 8 to 10 kg.
In the emergency department she was afebrile, blood pressure was 115/46 with a pulse rate of 60 and she was satting 99% on room air. ECG shows sinus rhythm at a rate of [address] or T wave changes.
Her chest x-ray does show some mild interstitial pulmonary edema even factoring in body habitus.
BNP was elevated at 2800 similar to prior. CBC was unchanged from prior and unremarkable. Electrolytes BUN/creatinine were all in appropriate range with a blood glucose of 255.
Medical History
Past Medical History
Past Medical History: Reports Other (coronary artery disease, HFpEF, CVA with right hemiparesis, hypertension, COPD on 2 L at baseline as needed, hypothyroidism, chronic pain, dementia, diabetes, recent right hip fracture status post surgical repair
08/17)
Past Surgical History: Reports Other (Tonsilectomy and Other (Hernia repair))
Social History
Tobacco: Non-smoker
Alcohol: Occasional
Drug: None
Family History
Family History: Not pertinent
Allergies / Home Medications
Allergies reflects when Allergies were last updated in [facility].
Home Medications with original date entered in [facility]
Allergy/Medication List:
Allergies
Allergy/AdvReac Type Severity Reaction Status Date / Time
No Known Allergies Allergy Verified 10/10/23 12:50
Home Medications
acetaminophen 500 mg tablet (Tylenol Extra Strength) 1,000 mg PO Q12H Pain 01/16/23
amlodipine 10 mg tablet (Norvasc) 10 mg PO DAILY Blood pressure 01/16/23
bisacodyl 10 mg rectal suppository (Dulcolax (bisacodyl)) 10 mg [place] DAILY PRN x3 days if no bm and mom/lactulose ineffective 01/16/23
dextromethorphan-guaifenesin 10 mg-100 mg/5 mL oral liquid 10 ml PO Q4H PRN cough 01/16/23
escitalopram oxalate 10 mg tablet (Lexapro) 10 mg PO DAILY Mental Health/Anxiety 01/16/23
gabapentin 300 mg capsule 600 mg PO TID Pain 01/16/23
insulin glargine 100 unit/mL (3 mL) subcutaneous pen (Basaglar KwikPen U-100 Insulin) 18 unit SC HS Diabetes 01/16/23
magnesium hydroxide 400 mg/5 mL oral suspension (Milk of Magnesia) 30 ml PO HS PRN constipation 01/16/23
pantoprazole 40 mg tablet,delayed release (Protonix) 40 mg PO QPM Gastrointestinal issue 01/16/23
rosuvastatin 40 mg tablet (Crestor) 40 mg PO QPM High cholesterol 01/16/23
levothyroxine 150 mcg tablet 150 mcg PO DAILY Thyroid 07/07/23
naloxone 4 mg/actuation nasal spray (Narcan) 4 mg intranasal Q3M PRN opioid overdose 07/07/23
ondansetron HCl 4 mg tablet 4 mg PO Q6H PRN nausea 07/07/23
polyethylene glycol 3350 17 gram oral powder packet (Miralax) 17 g PO QPM Gastrointestinal Issue 07/07/23
sennosides 8.6 mg-docusate sodium 50 mg tablet (Senna-S) 2 tab-cap PO BID Constipation 07/07/23
furosemide 40 mg tablet 40 mg PO DAILY Fluid retention/Swelling #30 tabs 07/12/23
ipratropium 0.5 mg-albuterol 3 mg (2.5 mg base)/3 mL nebulization soln 3 ml inhalation R BID Lung/Breathing Issues 08/16/23
dapagliflozin propanediol 10 mg tablet 10 mg PO DAILY Diabetes 08/20/23
docusate sodium 100 mg capsule (Colace) 200 mg PO DAILY Constipation 08/20/23
lidocaine 4 % topical patch 1 patch topical Q12H PRN apply to right shoulder 08/20/23
oxycodone 5 mg tablet 5 mg PO Q6H PRN severe pain 08/20/23
folic acid-vit B6-vit B12 2.5 mg-25 mg-2 mg tablet (WesTab Max) 1 tab PO DAILY #30 tabs 08/24/23
miconazole nitrate 2 % topical powder (Miconazorb AF) 1 applic topical PRN PRN SOILAGE/DRAINAGE #85 grams 08/24/23
aspirin 81 mg chewable tablet 81 mg PO DAILY 10/10/23
ferrous sulfate 325 mg (65 mg iron) tablet 325 mg PO MOWEFR@1830 10/12/23
Review of Systems
-
History Source: Patient
A 12 point ROS was completed and negative except as noted: Yes
Constitutional: Reports No Symptoms
EENT: Reports No Symptoms
Respiratory: Reports No Symptoms
Cardiac: Reports No Symptoms
Abdomen/GI: Reports No Symptoms
: Reports No Symptoms
Musculoskeletal: Reports No Symptoms
Skin: Reports No Symptoms
Neurological: Reports No Symptoms
Endocrine: Reports No Symptoms
Hematologic/Lymphatic: Reports No Symptoms
Psych: Reports No Symptoms
Physical Exam
Vital Signs
Vital Signs
Temp Pulse Resp BP Pulse Ox
98.1 F 60 13 115/46 99
07/11/25 23:02 07/12/25 02:26 07/12/25 01:45 07/12/25 02:26 07/12/25 01:45
Physical Exam
General: Well Developed, No Apparent Distress, Comfortable and Morbidly Obese
HEENT: NormoCephalic, Anicteric, Atraumatic, PERRLA and Oxygen; No Moist mucous membranes
Respiratory: Clear (only able to auscultate anteriorly), Wheezes (trace scattered wheezes) and Non Labored Respirations; No Rales, Rhonchi or Crackles
Cardiac: S1/S2 and Regular Rhythm; No Peripheral Edema, JVD or Carotid Bruits
Breast: Deferred by me
GI: Soft, Non Tender, Normal Bowel Sounds and Distended
Rectal: Deferred by Provider
Genito-urinary: Deferred by me
Musculoskeletal: No Clubbing, No Cyanosis, Edema, Left Lower Extremity, Edema, Right Lower Extremity (trace to 1+) and No Edema
Skin: Warm
Neuro: AO x 3 and Nonfocal/grossly intact
Hematologic/Lymphatic: No Lymphadenopathy
Psych: Calm
Laboratory Results
-
07/12/25 00:13
07/12/25 00:13
Laboratory Results
Total Bilirubin 0.6 mg/dl (0.2-1.3) 07/12/25 00:13
AST 12 U/L (14-36) L 07/12/25 00:13
ALT < 10 U/L (0-35) 07/12/25 00:13
Alkaline Phosphatase 79 U/L (38-126) 07/12/25 00:13
Data Reviewed
-
Diagnostic Radiology: Image Personally Visualized and interpreted
Medical Tests (Nuc Med, Echo, EKG etc): Image Personally Visualized and interpreted
Lab Data: Labs Reviewed by me
Old Records: Reviewed
Impression/Plan
-
IMPRESSION:
75-year-old female with COPD on 2 L, diastolic CHF, hypertension, hyperlipidemia, insulin-dependent diabetes, morbid obesity, hypothyroid who presents to the emergency department with hypoxic episode. She was off her oxygen and desaturated to 70%.
When she applied 2 L home O2 and neb treatment her oxygen saturation improved back to normal. She is currently satting normally on 4 L and has no increased work of breathing no wheezing or cough or shortness of breath at rest. Known shallow
breaths at rest with chronic CO2 retention. Chest x-ray similar to prior with interstitial infiltrates consistent with pulmonary edema. Labs are unchanged from prior and essentially stable without any ischemic findings and a BNP that is around
2-3000. It is notable that she has had significant weight gain since her discharge 2 months ago of about 10 kg.
PLAN:
CHF - Known diastolic CHF EF 60%. Weight gain by history. Pedal Edema
- admit to tele for mild CHF exacerbation
- lasix 40 iv daily to bid to target weight loss of about 5 Kg
- continue aspirin, and statin
- continue amlodipine
- continue farxiga
COPD - Stable on 2 L, no evidence of acute exacerbation
- continue supplemental oxygen
- prn nebs
DM II
- lantus 30 Hs
- aspart sliding scale
Hypothyroid
- continue levothyroxine 150 mcg daily
DVT PPX - lovenox sq
Code Status - DNR/DNI
[2025-07-12] MEDS: TYLENOL 1000 MG PO ×2 (06:07→16:53)
[2025-07-12] MEDS: SYNTHROID 150 MCG PO (06:08)
[2025-07-12 08:12] LABS: Glucose - Point of Care 213 mg/dl (70-99)
[2025-07-12 08:23] LABS: Blood Urea Nitrogen 24 mg/dl (7-17); Calcium 8.5 mg/dl (8.4-10.2); Carbon Dioxide 32 mmol/L (22-30); Chloride 100 mmol/L (98-107); Estimated Creatinine Clearance 53 ml/min; Glucose 205 mg/dl (70-99); Magnesium 2.5 mg/dl (1.6-2.3); Potassium 4.3 mmol/L (3.5-5.1); Sodium 137 mmol/L (135-145); eGFR > 60.00
[2025-07-12] MEDS: LOW STRENGTH ASPIRIN 81 MG PO (09:53)
[2025-07-12] MEDS: WELLBUTRIN XL (24 hour extended release) 150 MG PO (09:53)
[2025-07-12] MEDS: LANTUS 0.12 UNITS SC ×2 (09:54→21:45)
[2025-07-12] MEDS: NEURONTIN 200 MG PO (09:54)
[2025-07-12] MEDS: MIRALAX 17 GRAMS PO (09:54)
[2025-07-12] MEDS: LEXAPRO 10 MG PO (09:54)
[2025-07-12] MEDS: FARXIGA 10 MG PO (09:54)
[2025-07-12] MEDS: THERAGRAN 1 TABLET PO (09:54)
[2025-07-12] MEDS: PROTONIX 20 MG PO (09:54)
[2025-07-12] MEDS: SENOKOT-S 2 TABLET PO ×2 (09:54→20:44)
[2025-07-12] MEDS: NORVASC 10 MG PO (09:56)
--- NOTE | 2025-07-12 09:57 | CM ---
Initial assessment completed. Patient is a 75-year-old female with h/o A-fib CHF previous DVT hypertension, COPD on 2 L home O2, IDDM, presenting to the emergency department with concerns of low pulse ox and shortness of breath. Patient has
dementia. 4L O2.
Patient is a LTC resident at [facility]. Patient is total care, wears O2 at SNF, usually at night.
PCP: Long Blunt
Pharmacy: [facility]
Plan: Return to [facility]
--- NOTE | 2025-07-12 13:30 | W.PN.HOSP.TC ---
Addendum entered and electronically signed by Richy Munoz DO 07/12/25 14:10:
Correction: Nurse Court confirmed home dose of Lantus is 26 units at night instead of 30 that was reported (of note, patient's daughter reports that her doctor recently increased the Lantus dose); either way monitor blood glucose and adjust as
needed
Original Note:
Today's Communication/Plan
-
Assessment / Plan
Assessment / Plan
General: No Apparent Distress, Comfortable and Conversant
HEENT: NormoCephalic, Moist mucous membranes, nasal cannula in place
Respiratory: Clear and Non Labored Respirations
Cardiac: S1/S2 and Regular Rhythm; No Rub or Gallop
GI: Soft, Non Tender, Non Distended and Normal Bowel Sounds
Musculoskeletal: 1+ Lower extremity edema, no deformity
Skin: Warm and dry
: NO Story
Neuro: Awake, Alert, Nonfocal/grossly intact
Psych: Calm and cooperative
Ms. Rodriguez is a 75-year-old female with a medical history of A-fib, HFpEF, CAD, COPD (2 L as needed at baseline), IDDM, chronic pain, hypothyroidism, and dementia who presented with shortness of breath and hypoxia. She was desaturating to the 70s
without her nasal cannula. She has had abrupt weight gain of approximately 10 kg in the past 2 months. Labs were generally unremarkable including a BNP of 2880 which is close to her recent baseline. She was hyperglycemic with a blood glucose of
255. Chest imaging showed pulmonary edema. She was admitted for further evaluation and management of acute on chronic HFpEF.
Acute on chronic HFpEF:
- Lasix 40 mg IV twice daily
- Monitor I's and O's and daily weights
- Monitor electrolytes with diuresis
- Supplemental oxygen as needed
- Continue home amlodipine and Farxiga
- Anticipate euvolemia in the next 24 to 48 hours
IDDM:
- Appears to be on 35 units of long-acting insulin at night in addition to sliding scale as needed, needs to be confirmed, admitting med rec not complete
- Did not receive any long-acting insulin on the night of admission, ordered 12 units of glargine this morning and another 12 units for tonight
- Will continue 30 units of Lantus starting tomorrow night
- Additional sliding scale as needed
- Continue Accu-Cheks, adjust regimen as needed
- Diabetic diet
- Need to confirm home insulin regimen
COPD:
- With acute on chronic hypoxic respiratory failure, uses 2 L oxygen via nasal cannula at home as needed
- Currently requiring 4 L of oxygen via nasal cannula, breathing comfortably and saturating appropriately at 94%
- Is not bronchospastic on exam
- DuoNebs as needed for wheezing or shortness of breath
Hypothyroidism:
- Continue home levothyroxine 150 mcg daily
DVT prophylaxis: Lovenox
CODE STATUS: DNR
Total time spent on today's encounter was 53 minutes
Anticipated Discharge: 24 - 48 hours
Subjective/Interval History
-
Date of Service: July 12, 2025
Patient was seen and examined at bedside this morning. Comfortable, saturating appropriately on her baseline 2 L of oxygen.
Objective Data
-
Labs:
Laboratory Results
07/12/25
07:06
Sodium 137
Potassium 4.3
Chloride 100
Carbon Dioxide 32 H
BUN 24 H
Creatinine 0.9
Glucose 205 H
Calcium 8.5
Vital Signs:
Vital Signs
Temp Pulse Resp BP Pulse Ox
98.2 F 58 20 120/50 94
07/12/25 11:29 07/12/25 11:29 07/12/25 11:29 07/12/25 11:29 07/12/25 11:29
Review of Systems
-
History Source: Patient
All other systems: Reviewed and negative
Physical Exam
-
General: No Apparent Distress
[2025-07-12 13:48] LABS: Glucose - Point of Care 248 mg/dl (70-99)
[2025-07-12] MEDS: NOVOLOG FLEXPEN-LOW RESISTANCE 2 UNITS SC ×2 (14:50→18:20)
[2025-07-12] MEDS: NEURONTIN 600 MG PO ×2 (16:53→20:45)
[2025-07-12 17:14] LABS: Glucose - Point of Care 227 mg/dl (70-99)
[2025-07-12] MEDS: LOVENOX 40 MG SC (18:19)
[2025-07-12] MEDS: CRESTOR 40 MG PO (20:44)
[2025-07-12 21:32] LABS: Glucose - Point of Care 245 mg/dl (70-99)
[2025-07-13 03:04] VITALS: BP 148/70
[2025-07-13] MEDS: TYLENOL 1000 MG PO ×2 (04:56→18:17)
[2025-07-13] MEDS: SYNTHROID 150 MCG PO (04:57)
[2025-07-13 05:23] VITALS: BMI 38.3
[2025-07-13 07:40] VITALS: BP 137/53
[2025-07-13 08:26] LABS: Glucose - Point of Care 156 mg/dl (70-99)
--- NOTE | 2025-07-13 08:31 | W.PN.HOSP.TC ---
Today's Communication/Plan
-
cont diuresis
maintain oxygen supplementation
PT/OT
Assessment / Plan
Assessment / Plan
Physical Exam
General: No Apparent Distress, Comfortable and Conversant
HEENT: NormoCephalic, Moist mucous membranes, nasal cannula in place
Respiratory: Clear and Non Labored Respirations
Cardiac: S1/S2 and Regular Rhythm; No Rub or Gallop
GI: Soft, Non Tender, Non Distended and Normal Bowel Sounds
Musculoskeletal: 1+ Lower extremity edema, no deformity
Skin: Warm and dry
Neuro: AOx3 conversant
Psych: Calm and cooperative
Ms. Rodriguez is a 75-year-old female with a medical history of A-fib, HFpEF, CAD, COPD (2 L as needed at baseline), IDDM, chronic pain, hypothyroidism, and dementia who presented with shortness of breath and hypoxia. She was desaturating to the 70s
without her nasal cannula. She has had abrupt weight gain of approximately 10 kg in the past 2 months. Labs were generally unremarkable including a BNP of 2880 which is close to her recent baseline. She was hyperglycemic with a blood glucose of
255. Chest imaging showed pulmonary edema. She was admitted for further evaluation and management of acute on chronic HFpEF.
Acute on chronic HFpEF:
- Lasix 40 mg IV twice daily
- Monitor I's and O's and daily weights
- Monitor electrolytes with diuresis
- Supplemental oxygen as needed
- Continue home amlodipine and Farxiga
IDDM:
- Lantus 30U HS
- Additional sliding scale as needed
- Continue Accu-Cheks, adjust regimen as needed
- Diabetic diet
COPD:
- With acute on chronic hypoxic respiratory failure, uses 2 L oxygen via nasal cannula at home as needed
- Currently requiring 4 L of oxygen via nasal cannula, breathing comfortably and saturating appropriately at 94%
- Is not bronchospastic on exam
- DuoNebs as needed for wheezing or shortness of breath
Hypothyroidism:
- Continue home levothyroxine 150 mcg daily
Likely Underlying Dementia
DVT prophylaxis: Lovenox
CODE STATUS: DNR
Total time spent on today's encounter was 45 minutes
Anticipated Discharge: 24 - 48 hours
Subjective/Interval History
-
Date of Service: July 13, 2025
No acute distress, sitting up comfortably in bed. Oriented x3 but memory issues noted. Doesn't remember being chronically on O2 at home. RN has to keep reminding patient to keep her O2 on. Otherwise pleasant cooperative coherent.
Objective Data
-
Labs:
Laboratory Results
07/13/25
06:00
Sodium Pending
Potassium Pending
Chloride Pending
Carbon Dioxide Pending
BUN Pending
Creatinine Pending
Glucose Pending
Calcium Pending
Vital Signs:
Vital Signs
Temp Pulse Resp BP Pulse Ox
97.9 F 67 20 148/70 92
07/13/25 03:04 07/13/25 03:04 07/13/25 03:04 07/13/25 03:04 07/13/25 03:04
I&O
07/12/25 07/13/25 07/14/25
06:59 06:59 06:59
Intake Total 960 / 960
Output Total 1900 / 1900
Balance -940 / -940
[2025-07-13] MEDS: LOW STRENGTH ASPIRIN 81 MG PO (09:49)
[2025-07-13] MEDS: PROTONIX 20 MG PO (09:50)
[2025-07-13] MEDS: FARXIGA 10 MG PO (09:50)
[2025-07-13] MEDS: NEURONTIN 600 MG PO ×3 (09:50→22:04)
[2025-07-13] MEDS: THERAGRAN 1 TABLET PO (09:50)
[2025-07-13] MEDS: NORVASC 10 MG PO (09:50)
[2025-07-13] MEDS: WELLBUTRIN XL (24 hour extended release) 150 MG PO (09:50)
[2025-07-13] MEDS: LEXAPRO 10 MG PO (09:50)
[2025-07-13] MEDS: MIRALAX PO (09:55)
[2025-07-13] MEDS: NOVOLOG FLEXPEN-LOW RESISTANCE 1 UNITS SC ×2 (09:55→18:17)
[2025-07-13] MEDS: LASIX 40 MG IV ×2 (09:55→18:16)
[2025-07-13 09:59] LABS: Blood Urea Nitrogen 22 mg/dl (7-17); Calcium 8.5 mg/dl (8.4-10.2); Carbon Dioxide 35 mmol/L (22-30); Chloride 97 mmol/L (98-107); Estimated Creatinine Clearance 53 ml/min; Glucose 141 mg/dl (70-99); Magnesium 2.3 mg/dl (1.6-2.3); Potassium 4.3 mmol/L (3.5-5.1); Sodium 137 mmol/L (135-145); eGFR > 60.00
[2025-07-13] MEDS: SENOKOT-S PO (10:10)
[2025-07-13 10:14] LABS: Glycohemoglobin (HgbA1c) 7.9 % (4.0-5.6)
[2025-07-13 11:38] VITALS: BP 138/66
[2025-07-13 12:06] LABS: Glucose - Point of Care 220 mg/dl (70-99)
[2025-07-13] MEDS: NOVOLOG FLEXPEN-LOW RESISTANCE 2 UNITS SC (13:16)
--- NOTE | 2025-07-13 14:40 | PTCARENOTE ---
Patient keeps taking her supplemental oxygen off. Repeatedly re-orienting patient. When patient removes oxygen, patient's oxygen drops to 70%. Taped oxygen to face. Called daughter, Zara, and asked her to speak with patient to attempt to
reinforce importance of keeping oxygen on.
[2025-07-13] MEDS: FEOSOL 325 MG PO (15:20)
[2025-07-13 15:53] VITALS: BP 139/53
[2025-07-13 16:48] LABS: Glucose - Point of Care 194 mg/dl (70-99)
[2025-07-13] MEDS: LOVENOX 40 MG SC (18:17)
[2025-07-13 19:19] VITALS: BP 121/54
[2025-07-13] MEDS: SENOKOT-S 2 TABLET PO (20:15)
[2025-07-13] MEDS: LANTUS 0.3 UNITS SC (21:52)
[2025-07-13] MEDS: CRESTOR 40 MG PO (22:05)
[2025-07-13 22:33] LABS: Glucose - Point of Care 243 mg/dl (70-99)
[2025-07-13 23:37] VITALS: BP 125/59
[2025-07-14] VITALS (10 sets, daily range): BP systolic 91–150; BP diastolic 46–68; PULSE 65–66; O2SAT 95–99; BMI 37.9
[2025-07-14] MEDS: TYLENOL 650 MG PO (01:59)
[2025-07-14] MEDS: SYNTHROID 150 MCG PO (05:24)
[2025-07-14] MEDS: TYLENOL 1000 MG PO ×2 (05:24→17:06)
[2025-07-14 08:03] LABS: Glucose - Point of Care 116 mg/dl (70-99)
[2025-07-14] MEDS: NOVOLOG FLEXPEN-LOW RESISTANCE SC (08:06)
[2025-07-14] MEDS: WELLBUTRIN XL (24 hour extended release) 150 MG PO (08:07)
[2025-07-14] MEDS: SENOKOT-S 2 TABLET PO ×2 (08:07→20:50)
[2025-07-14] MEDS: NEURONTIN 600 MG PO ×3 (08:10→20:50)
[2025-07-14] MEDS: LEXAPRO 10 MG PO (08:10)
[2025-07-14] MEDS: FARXIGA 10 MG PO (08:10)
[2025-07-14] MEDS: PROTONIX 20 MG PO (08:10)
[2025-07-14] MEDS: MIRALAX 17 GRAMS PO (08:10)
[2025-07-14] MEDS: NORVASC 10 MG PO (08:10)
[2025-07-14] MEDS: LOW STRENGTH ASPIRIN 81 MG PO (08:10)
[2025-07-14] MEDS: LASIX 40 MG IV ×2 (08:10→17:06)
[2025-07-14] MEDS: THERAGRAN 1 TABLET PO (08:10)
[2025-07-14] MEDS: DESENEX/MITRAZOL/ZEASORB 1 APPLIC TOPICAL ×2 (08:12→20:52)
[2025-07-14 08:22] LABS: Blood Urea Nitrogen 23 mg/dl (7-17); Calcium 9.0 mg/dl (8.4-10.2); Carbon Dioxide 35 mmol/L (22-30); Chloride 95 mmol/L (98-107); Estimated Creatinine Clearance 47 ml/min; Glucose 113 mg/dl (70-99); Magnesium 2.2 mg/dl (1.6-2.3); Potassium 4.4 mmol/L (3.5-5.1); Sodium 139 mmol/L (135-145); eGFR 58.39
--- NOTE | 2025-07-14 08:58 | W.PN.HOSP.TC ---
Today's Communication/Plan
-
Cont IV diuresis
daily weight I/O
Pulm Cardio eval
PT/OT
wean O2 supplementation as tolerated
Assessment / Plan
Assessment / Plan
Physical Exam
General: No Apparent Distress, Comfortable and Conversant
HEENT: NormoCephalic, Moist mucous membranes, nasal cannula in place
Respiratory: Clear and Non Labored Respirations
Cardiac: S1/S2 and Regular Rhythm; No Rub or Gallop
GI: Soft, Non Tender, Non Distended and Normal Bowel Sounds
Musculoskeletal: 1+ Lower extremity edema, no deformity
Skin: Warm and dry
Neuro: AOx3 conversant
Psych: Calm and cooperative
Ms. Rodriguez is a 75-year-old female with a medical history of A-fib, HFpEF, CAD, COPD (2 L as needed at baseline), IDDM, chronic pain, hypothyroidism, and dementia who presented with shortness of breath and hypoxia. She was desaturating to the 70s
without her nasal cannula. She has had abrupt weight gain of approximately 10 kg in the past 2 months. Labs were generally unremarkable including a BNP of 2880 which is close to her recent baseline. She was hyperglycemic with a blood glucose of
255. Chest imaging showed pulmonary edema. She was admitted for further evaluation and management of acute on chronic HFpEF.
Acute on chronic HFpEF:
- Lasix 40 mg IV twice daily
- Monitor I's and O's and daily weights
- Monitor electrolytes with diuresis
- Supplemental oxygen as needed
- Continue home amlodipine and Farxiga
-Cardio eval appreciated Aldactone added
IDDM:
- Lantus 30U HS
- Additional sliding scale as needed
- Continue Accu-Cheks, adjust regimen as needed
- Diabetic diet
COPD:
- With acute on chronic hypoxic respiratory failure, uses 2 L oxygen via nasal cannula at home as needed
- Currently requiring 4 L of oxygen via nasal cannula, breathing comfortably and saturating appropriately at 94%
- Is not bronchospastic on exam
- DuoNebs as needed for wheezing or shortness of breath
- Pulm eval
Hypothyroidism:
- Continue home levothyroxine 150 mcg daily
Likely Underlying Dementia
DVT prophylaxis: Lovenox
CODE STATUS: DNR
Discussed with patient and patient's daughter Zara
Total time spent on today's encounter was 45 minutes
Anticipated Discharge: 24 - 48 hours
Subjective/Interval History
-
Date of Service: July 14, 2025
No acute distress sitting up comfortably in chair. Reports right shoulder pain. Stable respiratory status on 4L. AOx3 though short term memory issues noted.
Objective Data
-
Labs:
Laboratory Results
07/14/25
06:37
Sodium 139
Potassium 4.4
Chloride 95 L
Carbon Dioxide 35 H
BUN 23 H
Creatinine 1.0
Glucose 113 H
Calcium 9.0
Vital Signs:
Vital Signs
Temp Pulse Resp BP Pulse Ox
97.3 F 70 16 150/68 94
07/14/25 07:00 07/14/25 07:00 07/14/25 07:00 07/14/25 07:00 07/14/25 07:00
I&O
07/13/25 07/14/25 07/15/25
06:59 06:59 06:59
Intake Total 960 / 960 660 / 660
Output Total 1900 / 1900 1550 / 1550
Balance -940 / -940 -890 / -890
--- NOTE | 2025-07-14 10:09 | PTOTSP ---
Pt is able to get OOB to chair with minimal assistance. This is her baseline and she is nonambulatory. No rehab goals. Nursing staff to encourage OOB daily. PT zain sign off. Anticipate pt returning to [facility] when medically stable.
[2025-07-14 12:14] LABS: Glucose - Point of Care 197 mg/dl (70-99)
[2025-07-14] MEDS: NOVOLOG FLEXPEN-LOW RESISTANCE 1 UNITS SC ×2 (12:20→17:25)
--- NOTE | 2025-07-14 15:38 | CON.CAR ---
Addendum entered and electronically signed by Gregory Garrett MD 07/14/25 18:47:
I saw and examined the patient.
The TRAIN BRAKE OPERATOR's note was reviewed and I agree with the note.
Comment:
75-year-old female (initially seen by Dr. Vyas in 2022), with dementia, COPD (on 2L NC), HFpEF, prior CVA, HTN, HLD, type 2 diabetes mellitus, hypothyroidism, and prior right IJ DVT presented from her [place] [facility] with a chief complaint of
shortness of breath. Cardiology consulted for CHF.
Physical exam: Regular rate and rhythm, no murmurs, no lower extremity edema, bibasilar crackles
Labs notable for NT proBNP 2880, creatinine 1.0, hemoglobin 9.5
Continue IV diuresis. Trend labs, weights, and symptoms. Continue SGLT2 inhibitor. Add spironolactone.
Original Note:
Consultation
Consultation Request
Date/Time Consultation Requested: 07/14/2025 15:00
Date/Time Consultation Performed: 07/14/2025 16:00
Requesting Provider: Dr. White
Performing Provider: GURU Cardenas for Dr. Garrett
Reason for Consultation: Acute on chronic heart failure
Medical History
-
Chief Complaint: Shortness of breath
History of Present Illness:
Katheryn Rodriguez is a 75-year-old female (initially seen by Dr. Vyas in 2022), with dementia, COPD (on 2L NC), HFpEF, prior CVA, HTN, HLD, type 2 diabetes mellitus, hypothyroidism, and prior right IJ DVT presented from her [place] [facility] with a chief
complaint of shortness of breath. She is here with acute on chronic heart failure. She is not sure how much fluid she is consuming. She is also not sure of her sodium intake as her meals are provided by her [place] [facility]. She reports medication
adherence.
Past Medical History
Past Medical History: CHF, COPD, CVA, HTN, Hypercholesterolemia, NIDDM and Other (Dementia)
Social History
Tobacco: Non-Smoker
Alcohol: None
Drug: None
Living: [facility]
Employment: Retired
Family History
Family History: Reviewed & Not Pertinent
Allergies / Home Medications
Allergy/AdvReac Type Severity Reaction Status Date / Time
No Known Allergies Allergy Verified 07/11/25 23:02
�Medication �Instructions �Recorded �Confirmed �Type
acetaminophen 500 mg tablet 1,000 mg PO Q12H Pain 01/16/23 07/12/25 History
(Tylenol Extra Strength)
amlodipine 10 mg tablet (Norvasc) 10 mg PO DAILY Blood pressure 01/16/23 07/12/25 History
bisacodyl 10 mg rectal suppository 10 mg OR [id number] PRN no BM and 01/16/23 07/12/25 History
(Dulcolax (bisacodyl)) MOM/lactulose ineffective
escitalopram oxalate 10 mg tablet 10 mg PO DAILY Mental 01/16/23 07/12/25 History
(Lexapro) Health/Anxiety
insulin glargine 100 unit/mL (3 26 unit SC HS Diabetes 01/16/23 07/12/25 History
mL) subcutaneous pen (Basaglar
KwikPen U-100 Insulin)
magnesium hydroxide 400 mg/5 mL 2,400 mg PO HSPRN PRN constipation 01/16/23 07/12/25 History
oral suspension (Milk of Magnesia)
rosuvastatin 40 mg tablet (Crestor) 40 mg PO HS High cholesterol 01/16/23 07/12/25 History
levothyroxine 150 mcg tablet 150 mcg PO DAILY Thyroid 07/07/23 07/12/25 History
furosemide 40 mg tablet 40 mg PO DAILY Fluid 07/12/23 07/12/25 Rx
retention/Swelling #30 tabs
dapagliflozin propanediol 10 mg 10 mg PO DAILY Diabetes 08/20/23 07/12/25 History
tablet
aspirin 81 mg chewable tablet 81 mg PO DAILY Blood Clot 10/10/23 07/12/25 History
Prevention/Tx
ferrous sulfate 325 mg (65 mg 325 mg PO MOWEFR@1430 Supplement 10/12/23 07/12/25 History
iron) tablet
therapeutic multivitamin 1 tab PO DAILY Supplement 10/12/23 07/12/25 History
polyethylene glycol 3350 17 17 g PO DAILY #510 grams 10/15/23 07/12/25 Rx
gram/dose oral powder
bupropion HCl 150 mg 24 hr tablet, 150 mg PO DAILY Mental 05/14/25 07/12/25 History
extended release Health/Anxiety
diclofenac sodium 1 % topical gel 2 g topical QID PRN apply to right 05/14/25 07/12/25 History
shoulder
insulin lispro 100 unit/mL 1 sliding scale dose SC 05/14/25 07/12/25 History
subcutaneous pen (Admelog SoloStar DIRECTED Diabetes
U-100 Insulin lispro)
miconazole nitrate 2 % topical 1 applic topical DAILY PRN apply 05/14/25 07/12/25 History
powder (Desenex) under B/L breast
pantoprazole 20 mg tablet,delayed 20 mg PO DAILY Gastrointestinal 05/14/25 07/12/25 History
release Issue
gabapentin 300 mg capsule 600 mg PO TID Neurological 07/12/25 07/12/25 History
Condition
oxycodone 5 mg tablet 5 mg PO Q6H PRN pain 07/12/25 07/12/25 History
Review of Systems
-
History Source: Patient
All other systems: Negative unless noted
Constitutional: Fatigue
EENT: No Symptoms
Respiratory: No Symptoms
Cardiac: No Symptoms
Abdomen/GI: No Symptoms
: No Symptoms
Musculoskeletal: No Symptoms
Skin: No Symptoms
Neurological: No Symptoms
Endocrine: No Symptoms
Hematologic/Lymphatic: No Symptoms
Physical Exam
Vital Signs
Temp Pulse Resp BP Pulse Ox
97.5 F 63 18 147/63 95
07/14/25 12:04 07/14/25 12:04 07/14/25 12:04 07/14/25 12:04 07/14/25 12:04
Lab Results
07/12/25 00:13
07/14/25 06:37
Tso-S-Dxmuacizrhx Pept 2880 pg/ml 07/12/25 02:23
Physical Exam
General: Well Developed, Well Nourished, No Apparent Distress and Comfortable
HEENT: Normocephalic, Anicteric and Moist Mucous Membranes
Respiratory: Crackles and Non Labored Respirations
Cardiac: S1/S2 and Regular Rhythm
Breast: Deferred by me
GI: Soft, Non Tender, Non Distended and Normal Bowel Sounds
Rectal: Deferred by Provider
Genito-urinary: No Costovertebral Tender
Musculoskeletal: No Clubbing and No Cyanosis
Skin: Warm and Dry
Neuro: Awake and Alert
Hematologic/Lymphatic: No Lymphadenopathy
Psych: Calm
Impression / Plan
-
I/P: 75F with dementia, COPD (on 2L NC), HFpEF, prior CVA, HTN, HLD, type 2 diabetes mellitus, hypothyroidism, and prior right IJ DVT presented from her [place] [facility] with a chief complaint of shortness of breath.
Outpatient animal herder: will be Dr. Vyas
HFpEF, acute on chronic
- Diuresis with furosemide 40 mg IV twice daily
- She just had a recent hospitalization with heart failure, consider twice daily dosing at discharge
- Continue Farxiga 10 mg daily
- Trend daily weight, I/O, and BMP with diuresis
- Echocardiogram as below
Mitral stenosis, moderate
Hypertension, chronic, stable
COPD, chronic, without acute exacerbation, on 2 L nasal cannula at baseline
HLD, on rosuvastatin 40mg
Type 2 diabetes mellitus, HgbA1c 7.9%
Dementia, chronic
Prior CVA
SUBJECTIVE:
As above.
DATA:
Transthoracic echocardiogram, 05/20/2025:
LV ejection fraction is 60-65%, by visual assessment. No regional wall motion
abnormalities are seen.
Normal right ventricular size and function.
Moderate mitral stenosis; peak/mean gradients are 16/6 mmHg. Mild mitral
regurgitation.
Aortic sclerosis without stenosis. Mild aortic regurgitation.
Mild tricuspid regurgitation. Estimated pulmonary artery pressure of 45-50
mmHg.
Compared to previous echo on 07/09/2023, progressive mitral stenosis is noted
(previously mild). PASP has slightly decreased (previously 60-65 mmHg).
Data Reviewed
-
EKG: Report Reviewed by me
Radiology: Report Reviewed by me
Medical Tests (Nuc Med, Echo etc): Report Reviewed by me
Labs: Labs Reviewed by me
Old Records: Reviewed
[2025-07-14] MEDS: LOVENOX 40 MG SC (17:05)
[2025-07-14 17:13] LABS: Glucose - Point of Care 194 mg/dl (70-99)
[2025-07-14] MEDS: CRESTOR 40 MG PO (20:50)
[2025-07-14] MEDS: REMOVE LIDOCAINE PATCH 1 PATCH REMOVE (20:51)
[2025-07-14 21:09] LABS: Glucose - Point of Care 232 mg/dl (70-99)
[2025-07-14] MEDS: LANTUS 0.3 UNITS SC (21:14)
--- NOTE | 2025-07-15 02:47 | DOWNTIME ---
There was a [employer] Of [employer] Downtime on 07/15/2025 from 0100 to 07/15/2025 at 0235. Downtime documentation of patient's care, including medication administrations, has been reconciled in the electronic record per guidelines. Refer to the
patient's paper chart under the miscellaneous tab to see printed paper medication records and downtime forms.
[2025-07-15 03:39] VITALS: BP 107/68
[2025-07-15] MEDS: TYLENOL 1000 MG PO ×2 (05:47→17:09)
[2025-07-15] MEDS: SYNTHROID 150 MCG PO (05:47)
[2025-07-15 06:00] VITALS: BMI 36.8
[2025-07-15 07:32] LABS: Hematocrit 35.6 % (37.0-47.0); Hemoglobin 10.3 g/dL (12.0-16.0); Mean Corp Hgb Conc. 28.9 g/dL (33.0-37.0); Mean Corpuscular Volume 90.8 fL (81.0-99.0); Platelet Count 274 10^3/uL (130-400); Red Cell Dist. Width 18.5 % (11.5-14.5)
[2025-07-15 07:47] VITALS: BP 142/56
--- NOTE | 2025-07-15 07:57 | W.PN.HOSP.TC ---
Today's Communication/Plan
-
wean O2 as tolerated
cont diuresis
daily wt I/O
out of bed to chair
PT/OT
trial duloxetine neuropathic pain
Assessment / Plan
Assessment / Plan
Physical Exam
General: No Apparent Distress, Comfortable and Conversant
HEENT: NormoCephalic, Moist mucous membranes, nasal cannula in place
Respiratory: Clear and Non Labored Respirations
Cardiac: S1/S2 and Regular Rhythm; No Rub or Gallop
GI: Soft, Non Tender, Non Distended and Normal Bowel Sounds
Musculoskeletal: 1+ Lower extremity edema, no deformity
Skin: Warm and dry
Neuro: AOx3 conversant coherent some memory issues noted (denies oxygen supplementation prior to hospitalization but confirmed with daughter patient was chronically on 2L at [facility] [place] prior to hospitalization)
Psych: Calm and cooperative
Ms. Rodriguez is a 75-year-old female with a medical history of A-fib, HFpEF, CAD, COPD (2 L as needed at baseline), IDDM, chronic pain, hx CVA w/ right sided residual pain, hypothyroidism, and dementia who presented with shortness of breath and
hypoxia. She was desaturating to the 70s without her nasal cannula. She has had abrupt weight gain of approximately 10 kg in the past 2 months. Labs were generally unremarkable including a BNP of 2880 which is close to her recent baseline. She
was hyperglycemic with a blood glucose of 255. Chest imaging showed pulmonary edema. She was admitted for further evaluation and management of acute on chronic HFpEF.
Acute on chronic HFpEF:
- Lasix 40 mg IV twice daily
- Monitor I's and O's and daily weights
- Monitor electrolytes with diuresis
- Supplemental oxygen as needed
- Continue home Amlodipine and Farxiga
- Cardio eval appreciated Aldactone added
IDDM:
- Lantus 30U HS
- Additional sliding scale as needed
- Continue Accu-Cheks, adjust regimen as needed
- Diabetic diet
COPD:
- With acute on chronic hypoxic respiratory failure, uses 2 L oxygen via nasal cannula at home as needed
- Currently requiring 4 L of oxygen via nasal cannula, breathing comfortably and saturating appropriately at 94%
- Is not bronchospastic on exam
- DuoNebs as needed for wheezing or shortness of breath
- Pulm eval appreciated
Hypothyroidism:
- Continue home levothyroxine 150 mcg daily
Hx CVA residual right sided neuropathic pain
Dementia
-cont Gabapentin 600 mg TID
-trial duloxetine 20 mg daily
DVT prophylaxis: Lovenox
CODE STATUS: DNR
I spent a total of 40 minutes with the patient or on the floor. More than 50% of this time involved counseling and coordination of care.
Anticipated Discharge: 24 - 48 hours
Subjective/Interval History
-
Date of Service: July 15, 2025
no acute distress. Continues to report right sided neuropathic pain from prior stroke
Objective Data
-
Labs:
Laboratory Results
07/15/25
06:37
WBC 6.1
Hgb 10.3 L
Hct 35.6 L
Plt Count 274
Sodium Pending
Potassium Pending
Chloride Pending
Carbon Dioxide Pending
BUN Pending
Creatinine Pending
Glucose Pending
Calcium Pending
Vital Signs:
Vital Signs
Temp Pulse Resp BP Pulse Ox
98 F 66 20 142/56 93
07/15/25 07:47 07/15/25 07:47 07/15/25 07:47 07/15/25 07:47 07/15/25 07:47
I&O
07/14/25 07/15/25 07/16/25
06:59 06:59 06:59
Intake Total 660 / 660
Output Total 1550 / 1550
Balance -890 / -890
[2025-07-15 08:04] LABS: Blood Urea Nitrogen 22 mg/dl (7-17); Calcium 8.9 mg/dl (8.4-10.2); Carbon Dioxide 37 mmol/L (22-30); Chloride 98 mmol/L (98-107); Estimated Creatinine Clearance 52 ml/min; Glucose 156 mg/dl (70-99); Magnesium 2.2 mg/dl (1.6-2.3); Potassium 4.3 mmol/L (3.5-5.1); Sodium 140 mmol/L (135-145); eGFR > 60.00
[2025-07-15 08:08] LABS: Glucose - Point of Care 167 mg/dl (70-99)
[2025-07-15] MEDS: LIDOCAINE 4% PATCH 1 PATCH TOPICAL (09:49)
[2025-07-15] MEDS: NOVOLOG FLEXPEN-LOW RESISTANCE 1 UNITS SC (09:50)
[2025-07-15] MEDS: NEURONTIN 600 MG PO ×3 (09:51→21:24)
[2025-07-15] MEDS: LEXAPRO 10 MG PO (09:52)
[2025-07-15] MEDS: FARXIGA 10 MG PO (09:52)
[2025-07-15] MEDS: PROTONIX 20 MG PO (09:52)
[2025-07-15] MEDS: WELLBUTRIN XL (24 hour extended release) 150 MG PO (09:52)
[2025-07-15] MEDS: MIRALAX 17 GRAMS PO (09:52)
[2025-07-15] MEDS: ALDACTONE 25 MG PO (09:53)
[2025-07-15] MEDS: THERAGRAN 1 TABLET PO (09:53)
[2025-07-15] MEDS: SENOKOT-S 2 TABLET PO ×2 (09:53→20:06)
[2025-07-15] MEDS: NORVASC 10 MG PO (09:54)
[2025-07-15] MEDS: LASIX 40 MG IV ×2 (09:54→17:02)
[2025-07-15] MEDS: LOW STRENGTH ASPIRIN 81 MG PO (09:54)
[2025-07-15] MEDS: DESENEX/MITRAZOL/ZEASORB 1 APPLIC TOPICAL ×2 (09:54→20:08)
--- NOTE | 2025-07-15 10:08 | W.PN.CD ---
Today's Communication / Plan
-
Respiratory insufficiency. multifactorial. Patient has COPD and is on 2 L at baseline chest x-ray 07/12/2025
With small bilateral effusions. Patient being treated for component of acute on chronic HFpEF.
-Patient with increased O2 requirement up to 5 L overnight but plans are to wean this morning.
- Continue diuresis with close monitoring of weights and renal function
- Treatment of underlying lung disease as directed by hospitalist. If O2 requirements remain high consider additional input from pulmonary.
Impression / Plan
-
I/P: 75F with dementia, COPD (on 2L NC), HFpEF, prior CVA, HTN, HLD, type 2 diabetes mellitus, hypothyroidism, and prior right IJ DVT presented from her [facility] care with a chief complaint of shortness of breath.
Outpatient machine feed operator: will be Dr. Vyas
.
Respiratory insufficiency. multifactorial. Patient has COPD and is on 2 L at baseline chest x-ray 07/12/2025
With small bilateral effusions. Patient being treated for component of acute on chronic HFpEF.
-Patient with increased O2 requirement up to 5 L overnight but plans are to wean this morning.
- Continue diuresis with close monitoring of weights and renal function
- Treatment of underlying lung disease as directed by hospitalist. If O2 requirements remain high consider additional input from pulmonary.
HFpEF, acute on chronic
- Diuresis with furosemide 40 mg IV twice daily
- She just had a recent hospitalization with heart failure, consider twice daily dosing at discharge
- Continue Farxiga 10 mg daily
- Trend daily weight, I/O, and BMP with diuresis
- Echocardiogram as below
Mitral stenosis, moderate
Hypertension, chronic, stable
COPD, chronic, without acute exacerbation, on 2 L nasal cannula at baseline
HLD, on rosuvastatin 40mg
Type 2 diabetes mellitus, HgbA1c 7.9%
Dementia, chronic
Prior CVA
SUBJECTIVE:
As above.
DATA:
Transthoracic echocardiogram, 05/20/2025:
LV ejection fraction is 60-65%, by visual assessment. No regional wall motion
abnormalities are seen.
Normal right ventricular size and function.
Moderate mitral stenosis; peak/mean gradients are 16/6 mmHg. Mild mitral
regurgitation.
Aortic sclerosis without stenosis. Mild aortic regurgitation.
Mild tricuspid regurgitation. Estimated pulmonary artery pressure of 45-50
mmHg.
Compared to previous echo on 07/09/2023, progressive mitral stenosis is noted
(previously mild). PASP has slightly decreased (previously 60-65 mmHg).
Physical Exam
Vital Signs/Labs
Vital Signs
Temp Pulse Resp BP Pulse Ox
98 F 61 20 127/61 93
07/15/25 07:47 07/15/25 09:53 07/15/25 07:47 07/15/25 09:53 07/15/25 07:47
07/14/25 07/15/25 07/16/25
06:59 06:59 06:59
Actual Weight 88.11 kg 85.502 kg
07/15/25 06:37
07/15/25 06:37
Magnesium 2.2 mg/dl (1.6-2.3) 07/15/25 06:37
07/12/25
02:23
Xyr-B-Sxiuaqliqhd Pept 2880
Physical Exam
Constitutional: No acute distress
Cardiovascular: Rhythm & rate is regular
Respiratory: Wheeze Absent and Rhonchi Absent
GI: Soft, Non tender and Normal bowel sounds
Neuro/Psych: Alert
Data Reviewed
-
Date of Service: July 15, 2025
Medical Decision Making: Reviewed Test Results
Echo: Report Reviewed by me
Medical Tests (PFT, Pathology etc): Report Reviewed by me
Labs: Labs Reviewed by me
--- NOTE | 2025-07-15 10:25 | CON.PUL ---
Consultation
Consultation Request
Date/Time Consultation Requested: 07/15/2025-9 AM
Date/Time Consultation Performed: 07/15/2025-9:15 AM
Requesting Provider: hospitalist
Performing Provider: Dr. Aponte
Reason for Consultation: Shortness of breath
Medical History
-
Chief Complaint: shortness of breath
History of Present Illness:
75-year-old female with a distant smoking history with a diagnosis of COPD on 2 L of oxygen at home, diabetes, CAD, heart failure with preserved EF, CVA, hypertension, hypothyroid, dementia presented with shortness of breath felt to be CHF and
pulmonary consulted for underlying COPD 07/15/2025. Patient states that at rest she does not complain of any shortness of breath. She states that she quit smoking over 40 years ago and does not have emphysema. She denies any current chest pain,
chest congestion, productive cough, pleurisy, hemoptysis, abdominal pain, or new weakness.
Past Medical History
Past Medical History: None (CAD. Heart failure preserved EF. CVA/right hemiparesis. Hypertension. COPD on 2 L oxygen. Hypothyroid. Chronic pain. Dementia. Diabetes. Hip fracture/repair 2021. Tonsillectomy. Hernia repair.)
Social History
Tobacco: Former Smoker
Alcohol: None
Drug: None
Personal:
Living: With Family
Occupational Exposures: No known asbestos exposure
Environmental Exposures: No known tuberculosis exposure
Family History
Family History: Reviewed & Not Pertinent
Allergies / Home Medications
Allergies
Allergy/AdvReac Type Severity Reaction Status Date / Time
No Known Allergies Allergy Verified 07/11/25 23:02
Home Medications
�Medication �Instructions �Recorded �Confirmed �Last Taken �Type
acetaminophen 500 mg tablet 1,000 mg PO Q12H Pain 01/16/23 07/12/25 05/14/25 History
(Tylenol Extra Strength)
amlodipine 10 mg tablet (Norvasc) 10 mg PO DAILY Blood pressure 02/07/12/25 05/14/25 History
bisacodyl 10 mg rectal suppository 10 mg GA [id number] PRN no BM and 01/16/23 07/12/25 07/01/23 01:12 History
(Dulcolax (bisacodyl)) MOM/lactulose ineffective
escitalopram oxalate 10 mg tablet 10 mg PO DAILY Mental 01/16/23 07/12/25 05/14/25 History
(Lexapro) Health/Anxiety
insulin glargine 100 unit/mL (3 26 unit SC HS Diabetes 01/16/23 07/12/25 05/13/25 History
mL) subcutaneous pen (Basaglar
KwikPen U-100 Insulin)
magnesium hydroxide 400 mg/5 mL 2,400 mg PO HSPRN PRN constipation 01/16/23 07/12/25 05/12/25 History
oral suspension (Milk of Magnesia)
rosuvastatin 40 mg tablet (Crestor) 40 mg PO HS High cholesterol 01/16/23 07/12/25 05/13/25 History
levothyroxine 150 mcg tablet 150 mcg PO DAILY Thyroid 07/07/23 07/12/25 05/14/25 History
furosemide 40 mg tablet 40 mg PO DAILY Fluid 07/12/23 07/12/25 05/14/25 Rx
retention/Swelling #30 tabs
dapagliflozin propanediol 10 mg 10 mg PO DAILY Diabetes 08/20/23 07/12/25 05/14/25 History
tablet
aspirin 81 mg chewable tablet 81 mg PO DAILY Blood Clot 10/10/23 07/12/25 05/14/25 History
Prevention/Tx
ferrous sulfate 325 mg (65 mg 325 mg PO MOWEFR@1430 Supplement 10/12/23 07/12/25 05/13/25 History
iron) tablet
therapeutic multivitamin 1 tab PO DAILY Supplement 10/12/23 07/12/25 05/14/25 History
polyethylene glycol 3350 17 17 g PO DAILY #510 grams 10/15/23 07/12/25 05/14/25 Rx
gram/dose oral powder
bupropion HCl 150 mg 24 hr tablet, 150 mg PO DAILY Mental 05/14/25 07/12/25 05/14/25 History
extended release Health/Anxiety
diclofenac sodium 1 % topical gel 2 g topical QID PRN apply to right 05/14/25 07/12/25 Unknown History
shoulder
insulin lispro 100 unit/mL 1 sliding scale dose SC 05/14/25 07/12/25 Unknown History
subcutaneous pen (Admelog SoloStar DIRECTED Diabetes
U-100 Insulin lispro)
miconazole nitrate 2 % topical 1 applic topical DAILY PRN apply 05/14/25 07/12/25 Unknown History
powder (Desenex) under B/L breast
pantoprazole 20 mg tablet,delayed 20 mg PO DAILY Gastrointestinal 05/14/25 07/12/25 05/14/25 History
release Issue
gabapentin 300 mg capsule 600 mg PO TID Neurological 07/12/25 07/12/25 Unknown History
Condition
oxycodone 5 mg tablet 5 mg PO Q6H PRN pain 07/12/25 07/12/25 Unknown History
Review of Systems
-
Unable to Obtain full review of systems at this time due to: Other (Per HPI)
Vitals / Labs / Diagnostic Testing
Vital Signs
Temp Pulse Resp BP Pulse Ox
98 F 61 20 127/61 93
07/15/25 07:47 07/15/25 09:53 07/15/25 07:47 07/15/25 09:53 07/15/25 07:47
Lab Data
07/15/25 06:37
07/15/25 06:37
Diagnostic Testing:
Physical Exam
-
Exam:
well-nourished and well-developed in no apparent distress
HEENT-atraumatic, normocephalic
Neck-supple, no JVD, no bruit
Heart-regular rate and rhythm-no murmurs, rubs or gallops
Chest with diminished breath sounds, mildly prolonged expiratory time, no wheezes and rare basilar crackles
Abdomen-soft, nontender, nondistended, no hepatosplenomegaly
Extremities-no cyanosis, clubbing, e trace lower extremity edema
Integument-intact, no rashes, lesions or ecchymosis
Neurology-alert and oriented, nonfocal motor and sensory exam
Assessment
-
75-year-old female with a distant smoking history with a diagnosis of COPD on 2 L of oxygen at home, diabetes, CAD, heart failure with preserved EF, CVA, hypertension, hypothyroid, dementia presented with shortness of breath felt to be CHF and
pulmonary consulted for underlying COPD 07/15/2025.
Shortness of breath related to heart failure and underlying COPD
CHF with preserved EF
COPD on chronic 2 L of oxygen with mild acute exacerbation
Chronic hypercapnia-VBG 05/16/2025--62/146/7.38
Mitral stenosis-moderate
Fozmxu-antuovjtwl-uqwewssncw 10.3
Hyperglycemia
Conditions present prior to admission:
CAD.
Heart failure preserved EF
CVA/right hemiparesis
Plan hypertension
COPD on 2 L oxygen
Hypothyroid
Chronic pain
Dementia
Diabetes
Hip fracture/repair 2021. Tonsillectomy. Hernia repair.
Plan
Respiratory decompensation likely related to CHF with some contributions from her underlying COPD
Supplemental oxygen as needed-on chronic oxygen 2 L prior to admission
Nebulizers as needed-currently not bronchospastic
Aspiration precautions
Mucus clearing devices if needed
Mucolytic's if needed
BiPAP if needed-currently not requiring
Patient a DNR-DO NOT INTUBATE
Diuresis as tolerated
Monitor renal function, electrolytes, intake/output, lower extremity edema and weight
Replace electrolytes as needed
Cardiology following-correspondence reviewed
DVT prophylaxis-on Lovenox
GI prophylaxis-on pantoprazole
Nutrition
Consider outpatient pulmonary evaluation and follow-up
Diagnostic data:
Chest x-ray 08/20/2023-mild cardiomegaly, mild CHF
Chest x-ray 05/14/2025-mild CHF
Chest x-ray 07/12/2025-pulmonary edema, small bilateral pleural effusions
CT chest 05/14/2025-NAD, no evidence for pulm embolism, moderate atelectasis, mild cardiomegaly
Echocardiogram 05/20/2025-EF 60-65%, moderate mitral stenosis, aortic sclerosis without stenosis, PA systolic 45-50
Data Reviewed
-
EKG: Report reviewed by me
Radiology: Report reviewed by me
CT Scan: Report reviewed by me
Medical Tests (Nuc Med, Echo etc): Report reviewed by me
Labs: Labs reviewed by me
Old Records: Reviewed
Total Time Spent with Patient (in minutes): 65
[2025-07-15 11:00] VITALS: BP 116/58
[2025-07-15 12:19] LABS: Glucose - Point of Care 225 mg/dl (70-99)
[2025-07-15] MEDS: NOVOLOG FLEXPEN-LOW RESISTANCE 2 UNITS SC (12:59)
[2025-07-15] MEDS: FEOSOL 325 MG PO (13:02)
[2025-07-15] MEDS: CYMBALTA DELAYED RELEASE 20 MG PO (13:02)
[2025-07-15 15:23] VITALS: BP 134/50
[2025-07-15 17:00] LABS: Glucose - Point of Care 130 mg/dl (70-99)
[2025-07-15] MEDS: LOVENOX 40 MG SC (17:09)
[2025-07-15] MEDS: NOVOLOG FLEXPEN-LOW RESISTANCE SC (17:15)
[2025-07-15 19:30] VITALS: BP 130/54
[2025-07-15] MEDS: DUONEB 3 ML INH (19:33)
[2025-07-15] MEDS: REMOVE LIDOCAINE PATCH 1 PATCH REMOVE (20:06)
[2025-07-15 21:07] LABS: Glucose - Point of Care 167 mg/dl (70-99)
[2025-07-15] MEDS: CRESTOR 40 MG PO (21:24)
[2025-07-15] MEDS: LANTUS 0.3 UNITS SC (21:32)
[2025-07-15 23:59] VITALS: BP 123/48
[2025-07-16 03:05] VITALS: BP 125/48
[2025-07-16] MEDS: TYLENOL 1000 MG PO ×2 (05:26→17:14)
[2025-07-16] MEDS: SYNTHROID 150 MCG PO (05:27)
[2025-07-16 05:53] VITALS: BMI 36.4
[2025-07-16 07:31] VITALS: BP 120/49
[2025-07-16] MEDS: DUONEB 3 ML INH ×2 (07:50→19:42)
[2025-07-16 08:05] LABS: Glucose - Point of Care 123 mg/dl (70-99)
[2025-07-16 08:05] LABS: Blood Urea Nitrogen 21 mg/dl (7-17); Calcium 9.0 mg/dl (8.4-10.2); Carbon Dioxide 37 mmol/L (22-30); Chloride 96 mmol/L (98-107); Estimated Creatinine Clearance 51 ml/min; Glucose 128 mg/dl (70-99); Magnesium 2.3 mg/dl (1.6-2.3); Potassium 4.4 mmol/L (3.5-5.1); Sodium 139 mmol/L (135-145); eGFR > 60.00
[2025-07-16] MEDS: NOVOLOG FLEXPEN-LOW RESISTANCE SC (08:26)
[2025-07-16] MEDS: SENOKOT-S 2 TABLET PO ×2 (09:00→19:54)
[2025-07-16] MEDS: MIRALAX 17 GRAMS PO (09:00)
[2025-07-16] MEDS: NEURONTIN 600 MG PO ×3 (09:00→21:57)
[2025-07-16] MEDS: WELLBUTRIN XL (24 hour extended release) 150 MG PO (09:00)
[2025-07-16] MEDS: PROTONIX 20 MG PO (09:00)
[2025-07-16] MEDS: CYMBALTA DELAYED RELEASE 20 MG PO (09:00)
[2025-07-16] MEDS: LOW STRENGTH ASPIRIN 81 MG PO (09:01)
[2025-07-16] MEDS: FARXIGA 10 MG PO (09:01)
[2025-07-16] MEDS: NORVASC 10 MG PO (09:01)
[2025-07-16] MEDS: LASIX 40 MG IV ×2 (09:01→17:14)
[2025-07-16] MEDS: LIDOCAINE 4% PATCH 1 PATCH TOPICAL (09:02)
[2025-07-16] MEDS: ALDACTONE 25 MG PO (09:02)
[2025-07-16] MEDS: LEXAPRO 10 MG PO (09:02)
[2025-07-16] MEDS: DESENEX/MITRAZOL/ZEASORB 1 APPLIC TOPICAL ×2 (09:02→19:58)
[2025-07-16] MEDS: THERAGRAN 1 TABLET PO (09:02)
--- NOTE | 2025-07-16 09:14 | W.PN.HOSP.TC ---
Today's Communication/Plan
-
wean O2 as tolerated
cont diuresis as per cardio
Home oxygen assessment tomorrow as per pulm
daily wt I/O
out of bed to chair
PT/OT
Assessment / Plan
Assessment / Plan
Physical Exam
General: No Apparent Distress, Comfortable and Conversant
HEENT: NormoCephalic, Moist mucous membranes, nasal cannula in place
Respiratory: Clear and Non Labored Respirations
Cardiac: S1/S2 and Regular Rhythm; No Rub or Gallop
GI: Soft, Non Tender, Non Distended and Normal Bowel Sounds
Musculoskeletal: 1+ Lower extremity edema, no deformity
Skin: Warm and dry
Neuro: AOx3 conversant coherent some memory issues noted (denies oxygen supplementation prior to hospitalization but confirmed with daughter patient was chronically on 2L at [facility] prior to hospitalization)
Psych: Calm and cooperative
Ms. Rodriguez is a 75-year-old female with a medical history of A-fib, HFpEF, CAD, COPD (2 L as needed at baseline), IDDM, chronic pain, hx CVA w/ right sided residual pain, hypothyroidism, and dementia who presented with shortness of breath and
hypoxia. She was desaturating to the 70s without her nasal cannula. She has had abrupt weight gain of approximately 10 kg in the past 2 months. Labs were generally unremarkable including a BNP of 2880 which is close to her recent baseline. She
was hyperglycemic with a blood glucose of 255. Chest imaging showed pulmonary edema. She was admitted for further evaluation and management of acute on chronic HFpEF.
Acute on chronic HFpEF:
- Lasix 40 mg IV twice daily
- Monitor I's and O's and daily weights
- Monitor electrolytes with diuresis
- Supplemental oxygen as needed
- Continue home Amlodipine and Farxiga
- Cardio eval appreciated Aldactone added
IDDM:
- Lantus 30U HS
- Additional sliding scale as needed
- Continue Accu-Cheks, adjust regimen as needed
- Diabetic diet
COPD:
- With acute on chronic hypoxic respiratory failure, uses 2 L oxygen via nasal cannula at home as needed
- Currently requiring 4 L of oxygen via nasal cannula, breathing comfortably and saturating appropriately at 94%
- Is not bronchospastic on exam
- DuoNebs as needed for wheezing or shortness of breath
- Sherron portillo appreciated home oxygen assessment 07/17
Hypothyroidism:
- Continue home levothyroxine 150 mcg daily
Hx CVA residual right sided neuropathic pain
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
-cont Gabapentin 600 mg TID
-trial duloxetine 20 mg daily appears successful, significant reduction in pain noted since start
DVT prophylaxis: Lovenox
CODE STATUS: DNR
Discussed with patient and patient's daughter Zara
I spent a total of 40 minutes with the patient or on the floor. More than 50% of this time involved counseling and coordination of care.
Anticipated Discharge: 24 - 48 hours
Subjective/Interval History
-
Date of Service: July 16, 2025
No acute distress, sitting up comfortably in bed. Oxygen weaned down to 3L. Overall reports feeling well. Pain considerably improved since starting duloxetine. Denies new acute issues.
Objective Data
-
Labs:
Laboratory Results
07/16/25
06:39
Sodium 139
Potassium 4.4
Chloride 96 L
Carbon Dioxide 37 H
BUN 21 H
Creatinine 0.9
Glucose 128 H
Calcium 9.0
Vital Signs:
Vital Signs
Temp Pulse Resp BP Pulse Ox
98.1 F 60 18 120/49 95
07/16/25 07:31 07/16/25 07:55 07/16/25 07:55 07/16/25 07:31 07/16/25 07:55
I&O
07/15/25 07/16/25 07/17/25
06:59 06:59 06:59
Intake Total 840 / 840
Balance 840 / 840
--- NOTE | 2025-07-16 10:20 | W.PN.PUL.V3 ---
Today's Communication / Plan
-
Assess discharge supplemental oxygen needs.
Increase activity.
Assessment
-
75-year-old female with a distant smoking history with a diagnosis of COPD on 2 L of oxygen at home, diabetes, CAD, heart failure with preserved EF, CVA, hypertension, hypothyroid, dementia presented with shortness of breath felt to be CHF and
pulmonary consulted for underlying COPD 07/15/2025.
Shortness of breath related to heart failure and underlying COPD
CHF with preserved EF
COPD on chronic 2 L of oxygen with mild acute exacerbation
Chronic hypercapnia-VBG 05/16/2025--62/146/7.38
Mitral stenosis-moderate
Mkmdcs-tjxehojniy-xekcvmpvrh 10.3
Hyperglycemia
Conditions present prior to admission:
CAD.
Heart failure preserved EF
CVA/right hemiparesis
Plan hypertension
COPD on 2 L oxygen
Hypothyroid
Chronic pain
Dementia
Diabetes
Hip fracture/repair 2021. Tonsillectomy. Hernia repair.
Plan
Respiratory decompensation likely related to CHF with some contributions from her underlying COPD
Supplemental oxygen as needed-on chronic oxygen 2 L prior to admission
Nebulizers as needed-currently not bronchospastic-on duonebs twice a day
Aspiration precautions
Mucus clearing devices if needed
Mucolytic's if needed
BiPAP if needed-currently not requiring
Patient a DNR-DO NOT INTUBATE
Diuresis as tolerated
Monitor renal function, electrolytes, intake/output, lower extremity edema and weight
Replace electrolytes as needed
Cardiology following-correspondence reviewed
DVT prophylaxis-on Lovenox
GI prophylaxis-on pantoprazole
Nutrition
Consider outpatient pulmonary evaluation and follow-up
Diagnostic data:
Chest x-ray 08/20/2023-mild cardiomegaly, mild CHF
Chest x-ray 05/14/2025-mild CHF
Chest x-ray 07/12/2025-pulmonary edema, small bilateral pleural effusions
CT chest 05/14/2025-NAD, no evidence for pulm embolism, moderate atelectasis, mild cardiomegaly
Echocardiogram 05/20/2025-EF 60-65%, moderate mitral stenosis, aortic sclerosis without stenosis, PA systolic 45-50
Subjective Data
-
Date of Service:
Date of Service: July 16, 2025
Chief Complaint: Pulmonary Follow Up and Dyspnea Follow Up
Subjective:
Improved, no complaints shortness of breath at rest, no chest pain or abdominal pain
Review of Systems
General: Other ( per HPI)
Objective Data
Data Reviewed
Vital Signs / I&O:
Vital Signs
Temp Pulse Resp BP Pulse Ox
98.1 F 60 18 120/49 95
07/16/25 07:31 07/16/25 07:55 07/16/25 07:55 07/16/25 07:31 07/16/25 09:45
Intake and Output
07/15/25 07/16/25 07/17/25
06:59 06:59 06:59
Intake Total 840 / 840
Balance 840 / 840
SaO2: 95
Nasal Cannula flow liters per minute: 3
Physical Exam
General: Respiratory Distress (n) and Comfortable
HEENT: Normocephalic and Anicteric
Cardiovascular: Regular Rhythm
Respiratory: Clear (Diminished breath sounds and prolonged expiratory time), Non-Labored Respirations and Accessory Resp Muscle Use (n)
GI: Soft, Non Distended and Non Tender
Neurology: Awake, Oriented and No Motor Deficits
Skin: Warm, Good Color, Cyanosis (n), Jaundice (n) and Rash
Labs/Micro/Reports
Lab Data
07/15/25 06:37
07/16/25 06:39
[2025-07-16 11:29] VITALS: BP 129/52
[2025-07-16 12:02] LABS: Glucose - Point of Care 158 mg/dl (70-99)
[2025-07-16] MEDS: NOVOLOG FLEXPEN-LOW RESISTANCE 1 UNITS SC ×2 (12:14→17:15)
[2025-07-16 15:42] VITALS: BP 132/58
[2025-07-16 16:36] LABS: Glucose - Point of Care 193 mg/dl (70-99)
[2025-07-16] MEDS: LOVENOX 40 MG SC (17:14)
[2025-07-16 19:29] VITALS: BP 144/54
[2025-07-16] MEDS: REMOVE LIDOCAINE PATCH 1 PATCH REMOVE (19:54)
[2025-07-16] MEDS: CRESTOR 40 MG PO (19:55)
--- NOTE | 2025-07-16 20:15 | W.PN.CD ---
Today's Communication / Plan
-
Patient's O2 requirements down to 4 L. At baseline apparently she is at 2 L.
Weights appear to be trending down would continue current diuretics and follow weights and labs.
When patient is down to her baseline O2 requirements then would consider transition to oral diuretic.
In addition continued to optimize treatment of her underlying lung disease/COPD as directed by pulmonary.
Impression / Plan
-
I/P: 75F with dementia, COPD (on 2L NC), HFpEF, prior CVA, HTN, HLD, type 2 diabetes mellitus, hypothyroidism, and prior right IJ DVT [facility] with a chief complaint of shortness of breath.
Outpatient phototypesetter operator: will be Dr. Vyas
.
Respiratory insufficiency. multifactorial. Patient has COPD and is on 2 L at baseline chest x-ray 07/12/2025
With small bilateral effusions. Patient being treated for component of acute on chronic HFpEF.
-Patient down to 4 L. Continue to wean as tolerated
- Continue diuresis with close monitoring of weights and renal function
- Treatment of underlying lung disease as directed by hospitalist. And design architect.
.
HFpEF, acute on chronic
- Diuresis with furosemide 40 mg IV twice daily
- She just had a recent hospitalization with heart failure, consider twice daily dosing at discharge
- Continue Farxiga 10 mg daily
- Trend daily weight, I/O, and BMP with diuresis
- Echocardiogram as below
Mitral stenosis, moderate
Hypertension, chronic, stable
COPD, chronic, without acute exacerbation, on 2 L nasal cannula at baseline
HLD, on rosuvastatin 40mg
Type 2 diabetes mellitus, HgbA1c 7.9%
Dementia, chronic
Prior CVA
SUBJECTIVE:
As above.
DATA:
Transthoracic echocardiogram, 05/20/2025:
LV ejection fraction is 60-65%, by visual assessment. No regional wall motion
abnormalities are seen.
Normal right ventricular size and function.
Moderate mitral stenosis; peak/mean gradients are 16/6 mmHg. Mild mitral
regurgitation.
Aortic sclerosis without stenosis. Mild aortic regurgitation.
Mild tricuspid regurgitation. Estimated pulmonary artery pressure of 45-50
mmHg.
Compared to previous echo on 07/09/2023, progressive mitral stenosis is noted
(previously mild). PASP has slightly decreased (previously 60-65 mmHg).
Physical Exam
Vital Signs/Labs
Vital Signs
Temp Pulse Resp BP Pulse Ox
98.5 F 68 20 144/54 92
07/16/25 19:29 07/16/25 19:42 07/16/25 19:42 07/16/25 19:29 07/16/25 19:42
07/15/25 07/16/25 07/17/25
06:59 06:59 06:59
Actual Weight 85.502 kg 84.453 kg
07/15/25 06:37
07/16/25 06:39
Magnesium 2.3 mg/dl (1.6-2.3) 07/16/25 06:39
07/12/25
02:23
Lyn-U-Vvozyzpgpfr Pept 2880
Physical Exam
Constitutional: No acute distress
Cardiovascular: Rhythm & rate is regular
Respiratory: Wheeze Absent and Rhonchi Absent
GI: Soft and Non tender
Neuro/Psych: Alert
Data Reviewed
-
Date of Service: July 16, 2025 10:40 AM
Medical Decision Making: Reviewed Test Results
X-Ray/CT/US/MRI/NUC/PET: Report Reviewed by me
Medical Tests (PFT, Pathology etc): Report Reviewed by me
Labs: Labs Reviewed by me
[2025-07-16 21:14] LABS: Glucose - Point of Care 259 mg/dl (70-99)
[2025-07-16] MEDS: LANTUS 0.3 UNITS SC (21:58)
[2025-07-16 23:25] VITALS: BP 124/48
[2025-07-17 03:23] VITALS: BP 146/54
[2025-07-17] MEDS: SYNTHROID 150 MCG PO (05:31)
[2025-07-17] MEDS: TYLENOL 1000 MG PO ×2 (05:31→17:39)
[2025-07-17 06:44] VITALS: BMI 35.5
[2025-07-17] MEDS: DUONEB 3 ML INH ×2 (07:15→18:07)
[2025-07-17 07:42] VITALS: BP 133/59
[2025-07-17 07:50] LABS: Glucose - Point of Care 168 mg/dl (70-99)
[2025-07-17] MEDS: DESENEX/MITRAZOL/ZEASORB 1 APPLIC TOPICAL ×2 (08:29→20:09)
[2025-07-17] MEDS: NOVOLOG FLEXPEN-LOW RESISTANCE 1 UNITS SC ×2 (08:29→17:38)
[2025-07-17] MEDS: FARXIGA 10 MG PO (08:30)
[2025-07-17] MEDS: WELLBUTRIN XL (24 hour extended release) 150 MG PO (08:30)
[2025-07-17] MEDS: CYMBALTA DELAYED RELEASE 20 MG PO (08:30)
[2025-07-17] MEDS: LIDOCAINE 4% PATCH TOPICAL (08:30)
[2025-07-17] MEDS: LOW STRENGTH ASPIRIN 81 MG PO (08:31)
[2025-07-17] MEDS: LEXAPRO 10 MG PO (08:31)
[2025-07-17] MEDS: SENOKOT-S 2 TABLET PO ×2 (08:31→20:11)
[2025-07-17] MEDS: ALDACTONE 25 MG PO (08:31)
[2025-07-17] MEDS: PROTONIX 20 MG PO (08:31)
[2025-07-17] MEDS: NORVASC 10 MG PO (08:31)
[2025-07-17] MEDS: THERAGRAN 1 TABLET PO (08:31)
[2025-07-17] MEDS: NEURONTIN 600 MG PO ×3 (08:31→21:17)
[2025-07-17] MEDS: MIRALAX 17 GRAMS PO (08:32)
[2025-07-17] MEDS: FLUSH (NSS) 1 FLUSH IV ×2 (08:32→16:01)
[2025-07-17] MEDS: LASIX 40 MG IV ×2 (08:32→16:01)
[2025-07-17 08:43] LABS: Blood Urea Nitrogen 25 mg/dl (7-17); Calcium 9.1 mg/dl (8.4-10.2); Carbon Dioxide 36 mmol/L (22-30); Chloride 95 mmol/L (98-107); Estimated Creatinine Clearance 51 ml/min; Glucose 175 mg/dl (70-99); Magnesium 2.2 mg/dl (1.6-2.3); Potassium 4.4 mmol/L (3.5-5.1); Sodium 138 mmol/L (135-145); eGFR > 60.00
--- NOTE | 2025-07-17 10:34 | W.PN.PUL.V3 ---
Today's Communication / Plan
-
Wean oxygen.
Check rest and exercise oximetry.
Diuresis per cardiology.
Outpatient pulmonary follow-up
Pulmonary will sign off- please call with questions
Assessment
-
75-year-old female with a distant smoking history with a diagnosis of COPD on 2 L of oxygen at home, diabetes, CAD, heart failure with preserved EF, CVA, hypertension, hypothyroid, dementia presented with shortness of breath felt to be CHF and
pulmonary consulted for underlying COPD 07/15/2025.
Shortness of breath related to heart failure and underlying COPD
CHF with preserved EF
COPD on chronic 2 L of oxygen with mild acute exacerbation
Chronic hypercapnia-VBG 05/16/2025--62/146/7.38
Mitral stenosis-moderate
Gtogvj-vpundsijhb-dwirlgfprf 10.3
Hyperglycemia
Conditions present prior to admission:
CAD.
Heart failure preserved EF
CVA/right hemiparesis
Plan hypertension
COPD on 2 L oxygen
Hypothyroid
Chronic pain
Dementia
Diabetes
Hip fracture/repair 2021. Tonsillectomy. Hernia repair.
Plan
Respiratory decompensation likely related to CHF with some contributions from her underlying COPD
Supplemental oxygen as needed-on chronic oxygen 2 L prior to admission-patient actually has denied being on any oxygen twice to il-currently on 3 L-95% saturation.
Assess discharge. Supplemental oxygen needs
Nebulizers as needed-currently not bronchospastic-on duonebs twice a day
Aspiration precautions
Mucus clearing devices if needed
Mucolytic's if needed
BiPAP if needed-currently not requiring
Patient a DNR-DO NOT INTUBATE
Diuresis continues as tolerated
Monitor renal function, electrolytes, intake/output, lower extremity edema and weight
Replace electrolytes as needed
Cardiology following-correspondence reviewed
DVT prophylaxis-on Lovenox
GI prophylaxis-on pantoprazole
Nutrition
Respiratory status has improved and is currently stable-pulmonary will sign off - Please call with questions
Consider outpatient pulmonary evaluation and follow-up
Diagnostic data:
Chest x-ray 08/20/2023-mild cardiomegaly, mild CHF
Chest x-ray 05/14/2025-mild CHF
Chest x-ray 07/12/2025-pulmonary edema, small bilateral pleural effusions
CT chest 05/14/2025-NAD, no evidence for pulm embolism, moderate atelectasis, mild cardiomegaly
Echocardiogram 05/20/2025-EF 60-65%, moderate mitral stenosis, aortic sclerosis without stenosis, PA systolic 45-50
Subjective Data
-
Date of Service:
Date of Service: July 17, 2025
Chief Complaint: Pulmonary Follow Up and Dyspnea Follow Up
Subjective:
Feels better, no complaints shortness of breath, chest pain or productive cough
Review of Systems
General: Other ( per HPI)
Objective Data
Data Reviewed
Vital Signs / I&O:
Vital Signs
Temp Pulse Resp BP Pulse Ox
97.9 F 61 20 133/59 95
07/17/25 07:42 07/17/25 08:32 07/17/25 07:42 07/17/25 08:32 07/17/25 08:25
Intake and Output
07/16/25 07/17/25 07/18/25
06:59 06:59 06:59
Intake Total 840 / 840 920 / 920
Balance 840 / 840 920 / 920
SaO2: 95
Nasal Cannula flow liters per minute: 3
Physical Exam
General: Respiratory Distress (n) and Comfortable
HEENT: Normocephalic and Anicteric
Cardiovascular: Regular Rhythm
Respiratory: Clear (Diminished breath sounds and prolonged expiratory time), Non-Labored Respirations and Accessory Resp Muscle Use (n)
GI: Soft, Non Distended and Non Tender
Neurology: Awake, Oriented and No Motor Deficits
Skin: Warm, Good Color, Cyanosis (n), Jaundice (n) and Rash
Labs/Micro/Reports
Lab Data
07/15/25 06:37
07/17/25 07:14
[2025-07-17 10:41] LABS: Iron 31 ug/dl (37-170)
[2025-07-17 10:50] LABS: Total Iron Binding Capacity 269 ug/dl (265-497)
[2025-07-17 11:00] VITALS: BP 120/48
[2025-07-17 12:12] LABS: Glucose - Point of Care 210 mg/dl (70-99)
[2025-07-17] MEDS: NOVOLOG FLEXPEN-LOW RESISTANCE 2 UNITS SC (13:19)
[2025-07-17] MEDS: FEOSOL 325 MG PO (14:26)
[2025-07-17 15:20] VITALS: BP 128/53
--- NOTE | 2025-07-17 15:21 | CM ---
Addendum entered by Katheryn Evans 07/17/25 15:32:
ambulance transport forms on chart.
Original Note:
[facility]
Spoke with Ihsan from [facility] weekend transfer will be okay.
Home Oxygen assessment pending. Patient is on 2 liters oxygen at the facility.
Patient will need ambulance transport.
Clinicals updated in [facility].
Plan: back to [facility]
If patient for transfer back this weekend kendall notify the weekend electrician supervisor substation at [phone], if no one answers, call the main number and ask for the electrician supervisor substation at [phone].
[facility]
Report# [phone]
[2025-07-17] MEDS: FERRLECIT 110 MG IV (16:00)
--- NOTE | 2025-07-17 16:14 | PTCARENOTE ---
Pt AAO x3, forgetful; cooperative. SOMERS slowly; refused OOB to chair activity so far this shift- 'I don't want to'. VSS. Telemetry:NSR. Maintained on nc 3 lpm- pulse ox 93%,pt with (+) SIN but denies SOB- 'It's much better'. Abd obese, soft, lindsay
PO well. Incont large amts urine. Resting in bed at present, no c/o. Will continue to monitor.
--- NOTE | 2025-07-17 16:26 | W.PN.HOSP.TC ---
Today's Communication/Plan
-
Check VBG
Assessment / Plan
Assessment / Plan
75-year-old with acute on chronic HFpEF and COPD. Patient gained about 10 kg in the past 2 months
Awake and alert denies any discomfort
Cardiovascular system S1-S2 appreciated
Chest few scattered rales
Abdomen soft and nontender
No pedal edema
# Acute on chronic hypoxic respiratory failure
Baseline 2 L of oxygen at home
Currently on 3 L
Check a VBG to see what the pH is since CO2 is 36
CO2 retention versus volume contraction
# Acute on chronic HFpEF
Lasix 40 mg IV twice daily
Intake output charting/electrolyte replacement as needed
Continue Farxiga, Aldactone
Cardiology following
# COPD
On 2 L of oxygen as outpatient
DuoNeb treatment
# Diabetes-hemoglobin A1c 7.9
Uses dapagliflozin, glargine insulin 26 units and sliding scale coverage with lispro as outpatient
Continue Lantus 30 units, sliding scale coverage
ADA diet
# Moderate mitral stenosis
# Hypertension-continue Norvasc, Aldactone
# Hyperlipidemia-continue statin
# History of coronary artery disease
# Hypothyroidism-continue levothyroxine
# History of CVA with right-sided neuropathic pain
Continue gabapentin, duloxetine started here
Also on oxycodone as needed as outpatient
# Depression-Was on Lexapro, Wellbutrin. Now Duloxetine added. will check with psyche tomorrow is need to cut back on Wellbutrin or lexapro. Decrease Lexapro to 5 mg in the mean time
# Chronic anemia-iron deficiency anemia-add IV iron
# History of DVT
# GERD-continue PPI
# Possible vascular dementia
# Ambulatory dysfunction
# Ex-smoker
# DVT prophylaxis-Lovenox
# DNR status
Daughter Zara updated
D/W Pulm
Part of this note was created using voice recognition system. Occasional wrong word or��sound alike� substitutions may have inadvertently occurred due to the inherent limitations of voice recognition software. If noted kindly bring it to my
attention for correction.
Anticipated Discharge: Within 24 hours
Subjective/Interval History
-
Date of Service: July 17, 2025
Objective Data
-
Labs:
Laboratory Results
07/17/25
07:14
Sodium 138
Potassium 4.4
Chloride 95 L
Carbon Dioxide 36 H
BUN 25 H
Creatinine 0.9
Glucose 175 H
Calcium 9.1
Vital Signs:
Vital Signs
Temp Pulse Resp BP Pulse Ox
98.2 F 69 20 128/53 92
07/17/25 15:20 07/17/25 16:01 07/17/25 15:20 07/17/25 16:01 07/17/25 16:12
I&O
07/16/25 07/17/25 07/18/25
06:59 06:59 06:59
Intake Total 840 / 840 920 / 920
Balance 840 / 840 920 / 920
[2025-07-17 16:47] LABS: Glucose - Point of Care 173 mg/dl (70-99)
[2025-07-17 16:59] LABS: Ferritin 55.1 ng/ml (11.1-264.0)
[2025-07-17 17:07] LABS: Vitamin B12 291 pg/ml (239-931)
--- NOTE | 2025-07-17 17:21 | W.PN.CD ---
Today's Communication / Plan
-
Move to PO Lasix 40 mg BID starting tomorrowing morning
Should go home on fluid and Na+ restriction and DAILY WEIGHT
Cardiology will sign off
Impression / Plan
-
Background: 75F with dementia, COPD (on 2L NC), HFpEF, prior CVA, HTN, HLD, type 2 diabetes mellitus, hypothyroidism, and prior right IJ DVT presented from her care home with a chief complaint of shortness of breath.
Outpatient remarketing rep: will be Dr. Vyas
Respiratory insufficiency. multifactorial: HF + Lung disease
HFpEF, acute on chronic
- Diuresis with furosemide 40 mg IV twice daily => Will move to PO BID Lasix 40 BID, watch weight/exam
- Continue Farxiga 10 mg daily and Aldactone 25 mg daily
- Admit weight 96.8 kg (07/11/2025)
- Weight today () now 82.5 kg (lower than at last discharge April 2025
- O2 requirements near baseline
Mitral stenosis, moderate
Hypertension, chronic, stable
COPD, chronic, without acute exacerbation, on 2 L nasal cannula at baseline
HLD, on rosuvastatin 40mg
Type 2 diabetes mellitus, HgbA1c 7.9%
Dementia, chronic
Prior CVA
Subjective:
Comfortable, says she is doing great
DATA:
Transthoracic echocardiogram, 05/20/2025:
LV ejection fraction is 60-65%, by visual assessment. No regional wall motion
abnormalities are seen.
Normal right ventricular size and function.
Moderate mitral stenosis; peak/mean gradients are 16/6 mmHg. Mild mitral
regurgitation.
Aortic sclerosis without stenosis. Mild aortic regurgitation.
Mild tricuspid regurgitation. Estimated pulmonary artery pressure of 45-50
mmHg.
Compared to previous echo on 07/09/2023, progressive mitral stenosis is noted
(previously mild). PASP has slightly decreased (previously 60-65 mmHg).
Physical Exam
Vital Signs/Labs
Vital Signs
Temp Pulse Resp BP Pulse Ox
98.2 F 69 20 128/53 92
07/17/25 15:20 07/17/25 16:01 07/17/25 15:20 07/17/25 16:01 07/17/25 16:12
07/16/25 07/17/25 07/18/25
06:59 06:59 06:59
Actual Weight 84.453 kg 82.554 kg
07/15/25 06:37
07/17/25 07:14
Magnesium 2.2 mg/dl (1.6-2.3) 07/17/25 07:14
07/12/25
02:23
[id number] Pept 2880
Physical Exam
Constitutional: No acute distress
EENT: Anicteric
Cardiovascular: Rhythm & rate is regular and Pedal edema is absent
Respiratory: Respiratory effort normal and Lungs clear to auscul.
GI: Soft and Distention absent
Neuro/Psych: Alert
Data Reviewed
-
Date of Service: July 17, 2025
[2025-07-17] MEDS: LOVENOX 40 MG SC (17:39)
[2025-07-17 18:14] LABS: Venous Blood Gas B.E. 13.6 mmol/L (-4 to +4); Venous Blood Gas O2 Sat % 99.6 %
--- NOTE | 2025-07-17 18:29 | PTCARENOTE ---
Results of venous blood gas TT to Dr. Lopez. Pt maintained on nc 3 lpm, no c/o SOB.
--- NOTE | 2025-07-17 18:39 | W.PN.UPDATE ---
Update Note
Progress Note Update
VBG shows metabolic alkalosis likely reason for hypoxia.
Will do Diamox. Okay with pulmonary
[2025-07-17 19:15] VITALS: BP 139/56
[2025-07-17] MEDS: CRESTOR 40 MG PO (20:10)
[2025-07-17] MEDS: REMOVE LIDOCAINE PATCH 1 PATCH REMOVE (20:10)
[2025-07-17] MEDS: DIAMOX 250 MG PO (20:11)
[2025-07-17 21:16] LABS: Glucose - Point of Care 202 mg/dl (70-99)
[2025-07-17] MEDS: LANTUS 0.3 UNITS SC (21:19)
[2025-07-17 23:28] VITALS: BP 138/53
[2025-07-18 03:53] VITALS: BP 130/57
--- NOTE | 2025-07-18 05:10 | W.PN.UPDATE ---
Update Note
Progress Note Update
Urine sample
[2025-07-18] MEDS: TYLENOL 1000 MG PO ×2 (05:18→17:37)
[2025-07-18] MEDS: SYNTHROID 150 MCG PO (05:18)
[2025-07-18 05:49] LABS: Urine Character Cloudy (Clear)
[2025-07-18 06:00] VITALS: BMI 34.6
[2025-07-18 06:35] LABS: Urine Squamous Cell >30 /LPF (Few); Urine White Cell >100 /HPF (0-5)
[2025-07-18 07:00] VITALS: BP 127/55
[2025-07-18] MEDS: DUONEB 3 ML INH ×2 (07:20→19:56)
[2025-07-18 08:20] LABS: Glucose - Point of Care 149 mg/dl (70-99)
[2025-07-18] MEDS: PROTONIX 20 MG PO (08:44)
[2025-07-18] MEDS: LIDOCAINE 4% PATCH TOPICAL (08:44)
[2025-07-18] MEDS: LOW STRENGTH ASPIRIN 81 MG PO (08:44)
[2025-07-18] MEDS: DIAMOX 250 MG PO (08:44)
[2025-07-18] MEDS: NEURONTIN 600 MG PO ×3 (08:45→21:01)
[2025-07-18] MEDS: FARXIGA 10 MG PO (08:45)
[2025-07-18] MEDS: LEXAPRO 5 MG PO (08:45)
[2025-07-18] MEDS: CYMBALTA DELAYED RELEASE 20 MG PO (08:45)
[2025-07-18] MEDS: SENOKOT-S 2 TABLET PO ×2 (08:45→21:01)
[2025-07-18] MEDS: THERAGRAN 1 TABLET PO (08:45)
[2025-07-18] MEDS: MIRALAX 17 GRAMS PO (08:45)
[2025-07-18] MEDS: ALDACTONE 25 MG PO (08:45)
[2025-07-18] MEDS: VITAMIN B-12 1000 MCG PO (08:45)
[2025-07-18] MEDS: WELLBUTRIN XL (24 hour extended release) 150 MG PO (08:45)
[2025-07-18] MEDS: NORVASC 10 MG PO (08:45)
[2025-07-18] MEDS: DESENEX/MITRAZOL/ZEASORB 1 APPLIC TOPICAL ×2 (08:46→20:46)
[2025-07-18] MEDS: NOVOLOG FLEXPEN-LOW RESISTANCE SC (08:46)
[2025-07-18 08:48] LABS: Blood Urea Nitrogen 22 mg/dl (7-17); Calcium 9.4 mg/dl (8.4-10.2); Carbon Dioxide 36 mmol/L (22-30); Chloride 95 mmol/L (98-107); Estimated Creatinine Clearance 41 ml/min; Glucose 155 mg/dl (70-99); Magnesium 2.3 mg/dl (1.6-2.3); Potassium 4.1 mmol/L (3.5-5.1); Sodium 138 mmol/L (135-145); eGFR 52.08
[2025-07-18] MEDS: LASIX 40 MG PO (08:51)
[2025-07-18 11:00] VITALS: BP 114/46
[2025-07-18 12:10] LABS: Glucose - Point of Care 194 mg/dl (70-99)
[2025-07-18] MEDS: NOVOLOG FLEXPEN-LOW RESISTANCE 1 UNITS SC ×2 (12:56→17:36)
[2025-07-18] MEDS: FERRLECIT 110 MG IV (12:57)
--- NOTE | 2025-07-18 13:18 | W.PN.HOSP.TC ---
Today's Communication/Plan
-
Hold further Lasix today
Creatinine in the morning if stable will discharge to rehab tomorrow.
Ceftriaxone
Assessment / Plan
Assessment / Plan
75-year-old with acute on chronic HFpEF and COPD. Patient gained about 10 kg in the past 2 months
Awake and alert denies any discomfort
Cardiovascular system S1-S2 appreciated
Chest few scattered rales
Abdomen soft and nontender
No pedal edema
# Acute on chronic hypoxic respiratory failure
Baseline 2 L of oxygen at home
Currently on 2 L
# Acute on chronic HFpEF
Lasix 40 mg BID-. will hold today
Intake output charting/electrolyte replacement as needed
Continue Farxiga, Aldactone
Cardiology following
# Symptoms of UTI, abnormal urinalysis-history of E. coli UTI in the past. Start ceftriaxone.
# COPD
On 2 L of oxygen as outpatient
DuoNeb treatment
# Diabetes-hemoglobin A1c 7.9
Uses dapagliflozin, glargine insulin 26 units and sliding scale coverage with lispro as outpatient
Continue Lantus 30 units, sliding scale coverage
ADA diet
# Moderate mitral stenosis
# Hypertension-continue Norvasc, Aldactone
# Hyperlipidemia-continue statin
# History of coronary artery disease
# Hypothyroidism-continue levothyroxine
# History of CVA with right-sided neuropathic pain
Continue gabapentin, duloxetine started here
Also on oxycodone as needed as outpatient
# Depression-Was on Lexapro, Wellbutrin. Now Duloxetine added. will check with psyche tomorrow is need to cut back on Wellbutrin or lexapro. Decrease Lexapro to 5 mg in the mean time
# Chronic anemia-iron deficiency anemia- IV iron
# History of DVT
# GERD-continue PPI
# Possible vascular dementia
# Ambulatory dysfunction
# Ex-smoker
# DVT prophylaxis-Lovenox
# DNR status
Daughter Zara updated again
D/W RN
Part of this note was created using voice recognition system. Occasional wrong word or��sound alike� substitutions may have inadvertently occurred due to the inherent limitations of voice recognition software. If noted kindly bring it to my
attention for correction.
Anticipated Discharge: Within 24 hours
Subjective/Interval History
-
Date of Service: July 18, 2025
Objective Data
-
Labs:
Laboratory Results
07/18/25
07:26
Sodium 138
Potassium 4.1
Chloride 95 L
Carbon Dioxide 36 H
BUN 22 H
Creatinine 1.1 H
Glucose 155 H
Calcium 9.4
Vital Signs:
Vital Signs
Temp Pulse Resp BP Pulse Ox
98 F 68 18 114/46 94
07/18/25 11:00 07/18/25 11:00 07/18/25 11:00 07/18/25 11:00 07/18/25 11:50
I&O
07/17/25 07/18/25 07/19/25
06:59 06:59 06:59
Intake Total 920 / 920 1310 / 1310
Balance 920 / 920 1310 / 1310
[2025-07-18] MEDS: ROCEPHIN 1000 MG IV (14:30)
[2025-07-18] MEDS: STERILE WATER FOR INJECTION 10 ML IV (14:31)
[2025-07-18 15:00] VITALS: BP 129/51
[2025-07-18 17:36] LABS: Glucose - Point of Care 196 mg/dl (70-99)
[2025-07-18] MEDS: LOVENOX 40 MG SC (17:37)
[2025-07-18] MEDS: REMOVE LIDOCAINE PATCH REMOVE (20:45)
[2025-07-18] MEDS: CRESTOR 40 MG PO (21:01)
[2025-07-18] MEDS: LANTUS 0.3 UNITS SC (21:04)
[2025-07-18 21:05] LABS: Glucose - Point of Care 191 mg/dl (70-99)
[2025-07-18 23:56] VITALS: BP 149/60
[2025-07-19] MEDS: TYLENOL 1000 MG PO ×2 (05:22→17:46)
[2025-07-19] MEDS: SYNTHROID 150 MCG PO (05:22)
[2025-07-19 06:00] VITALS: BMI 34.7
[2025-07-19 07:00] VITALS: BP 111/46
[2025-07-19 07:19] LABS: Blood Urea Nitrogen 21 mg/dl (7-17); Calcium 9.6 mg/dl (8.4-10.2); Carbon Dioxide 33 mmol/L (22-30); Chloride 97 mmol/L (98-107); Estimated Creatinine Clearance 37 ml/min; Glucose 157 mg/dl (70-99); Potassium 4.4 mmol/L (3.5-5.1); Sodium 138 mmol/L (135-145); eGFR 46.91
[2025-07-19] MEDS: DUONEB 3 ML INH ×2 (07:22→19:40)
[2025-07-19 08:59] LABS: Glucose - Point of Care 153 mg/dl (70-99)
[2025-07-19] MEDS: MIRALAX 17 GRAMS PO (09:28)
[2025-07-19] MEDS: LIDOCAINE 4% PATCH 1 PATCH TOPICAL (09:28)
[2025-07-19] MEDS: SENOKOT-S 2 TABLET PO (09:29)
[2025-07-19] MEDS: NEURONTIN 600 MG PO ×3 (09:29→21:46)
[2025-07-19] MEDS: NORVASC 10 MG PO (09:29)
[2025-07-19] MEDS: THERAGRAN 1 TABLET PO (09:29)
[2025-07-19] MEDS: LEXAPRO 5 MG PO (09:29)
[2025-07-19] MEDS: FARXIGA 10 MG PO (09:29)
[2025-07-19] MEDS: PROTONIX 20 MG PO (09:29)
[2025-07-19] MEDS: DESENEX/MITRAZOL/ZEASORB 1 APPLIC TOPICAL ×2 (09:30→20:39)
[2025-07-19] MEDS: NOVOLOG FLEXPEN-LOW RESISTANCE 1 UNITS SC (09:30)
[2025-07-19] MEDS: VITAMIN B-12 1000 MCG PO (09:30)
[2025-07-19] MEDS: ALDACTONE 25 MG PO (09:30)
[2025-07-19] MEDS: LOW STRENGTH ASPIRIN 81 MG PO (09:30)
[2025-07-19] MEDS: WELLBUTRIN XL (24 hour extended release) 150 MG PO (09:30)
[2025-07-19] MEDS: CYMBALTA DELAYED RELEASE 20 MG PO (09:30)
[2025-07-19 11:37] LABS: Glucose - Point of Care 101 mg/dl (70-99)
[2025-07-19] MEDS: TYLENOL 650 MG PO (11:40)
[2025-07-19] MEDS: NOVOLOG FLEXPEN-LOW RESISTANCE SC ×2 (11:47→16:53)
[2025-07-19] MEDS: ROCEPHIN 1000 MG IV (14:30)
[2025-07-19] MEDS: STERILE WATER FOR INJECTION 10 ML IV (14:30)
[2025-07-19] MEDS: FERRLECIT 110 MG IV (14:30)
[2025-07-19 15:00] VITALS: BP 118/51
--- NOTE | 2025-07-19 15:22 | W.PN.HOSP.TC ---
Addendum entered and electronically signed by Azul Lopez MD 07/20/25 18:09:
JAS
Original Note:
Today's Communication/Plan
-
Hold Lasix and watch creatinine
If stable possible discharge tomorrow.
Assessment / Plan
Assessment / Plan
75-year-old with acute on chronic HFpEF and COPD. Patient gained about 10 kg in the past 2 months
Awake and alert denies any discomfort
Cardiovascular system S1-S2 appreciated
Chest mostly CTA
Abdomen soft and nontender
No pedal edema
# Acute on chronic hypoxic respiratory failure
Baseline 2 L of oxygen at home
Currently on 2 L
# Acute on chronic HFpEF
Lasix 40 mg BID-. will hold today
Intake output charting/electrolyte replacement as needed
Continue Farxiga, Aldactone
# Symptoms of UTI, abnormal urinalysis- E. coli UTI. Started ceftriaxone.
# COPD
On 2 L of oxygen as outpatient
DuoNeb treatment
# Diabetes-hemoglobin A1c 7.9
Uses dapagliflozin, glargine insulin 26 units and sliding scale coverage with lispro as outpatient
Continue Lantus 30 units, sliding scale coverage
ADA diet
# Moderate mitral stenosis
# Hypertension-continue Norvasc, Aldactone
# Hyperlipidemia-continue statin
# History of coronary artery disease
# Hypothyroidism-continue levothyroxine
# History of CVA with right-sided neuropathic pain
Continue gabapentin, duloxetine started here
Also on oxycodone as needed as outpatient
# Depression-Was on Lexapro, Wellbutrin. Now Duloxetine added. will check with psyche tomorrow is need to cut back on Wellbutrin or Lexapro. Decrease Lexapro to 5 mg in the mean time
Discussed with psychiatry. Effects of the duloxetine will take 2 weeks therefore continue with current medicines and maybe discontinue Lexapro 2 weeks from the start of duloxetine. Duloxetine may also need to be increased to 40 mg at that time
# Chronic anemia-iron deficiency anemia- IV iron
# History of DVT
# GERD-continue PPI
# Possible vascular dementia
# Ambulatory dysfunction
# Ex-smoker
# DVT prophylaxis-Lovenox
# DNR status
D/W RN
Part of this note was created using voice recognition system. Occasional wrong word or��sound alike� substitutions may have inadvertently occurred due to the inherent limitations of voice recognition software. If noted kindly bring it to my
attention for correction.
Anticipated Discharge: Within 24 hours
Subjective/Interval History
-
Date of Service: July 19, 2025
Objective Data
-
Labs:
Laboratory Results
07/19/25
06:19
Sodium 138
Potassium 4.4
Chloride 97 L
Carbon Dioxide 33 H
BUN 21 H
Creatinine 1.2 H
Glucose 157 H
Calcium 9.6
Vital Signs:
Vital Signs
Temp Pulse Resp BP Pulse Ox
97.8 F 58 16 111/46 93
07/19/25 07:00 07/19/25 07:23 07/19/25 07:23 07/19/25 07:00 07/19/25 11:12
I&O
07/18/25 07/19/25 07/20/25
06:59 06:59 06:59
Intake Total 1310 / 1310 660 / 660
Balance 1310 / 1310 660 / 660
[2025-07-19 16:49] LABS: Glucose - Point of Care 142 mg/dl (70-99)
[2025-07-19] MEDS: LOVENOX 40 MG SC (17:46)
[2025-07-19] MEDS: SENOKOT-S PO (19:36)
[2025-07-19] MEDS: REMOVE LIDOCAINE PATCH 1 PATCH REMOVE (20:38)
[2025-07-19 21:19] LABS: Glucose - Point of Care 229 mg/dl (70-99)
[2025-07-19] MEDS: CRESTOR 40 MG PO (21:46)
[2025-07-19] MEDS: LANTUS 0.3 UNITS SC (21:49)
[2025-07-19 23:03] VITALS: BP 128/63
[2025-07-20] MEDS: SYNTHROID 150 MCG PO (04:56)
[2025-07-20] MEDS: TYLENOL 1000 MG PO ×2 (04:56→16:46)
[2025-07-20 06:00] VITALS: BMI 34.4
[2025-07-20] MEDS: DUONEB 3 ML INH (07:12)
[2025-07-20 07:27] LABS: Glucose - Point of Care 162 mg/dl (70-99)
[2025-07-20 07:30] VITALS: BP 90/43
[2025-07-20] MEDS: PROTONIX 20 MG PO (07:44)
[2025-07-20] MEDS: NOVOLOG FLEXPEN-LOW RESISTANCE 1 UNITS SC ×3 (07:44→16:51)
[2025-07-20] MEDS: LIDOCAINE 4% PATCH 1 PATCH TOPICAL (07:44)
[2025-07-20] MEDS: NORVASC 10 MG PO (07:45)
[2025-07-20] MEDS: WELLBUTRIN XL (24 hour extended release) 150 MG PO (07:45)
[2025-07-20] MEDS: FARXIGA 10 MG PO (07:45)
[2025-07-20] MEDS: LOW STRENGTH ASPIRIN 81 MG PO (07:45)
[2025-07-20] MEDS: NEURONTIN 600 MG PO (07:45)
[2025-07-20] MEDS: LEXAPRO 5 MG PO (07:45)
[2025-07-20] MEDS: VITAMIN B-12 1000 MCG PO (07:45)
[2025-07-20] MEDS: ALDACTONE 25 MG PO (07:45)
[2025-07-20] MEDS: CYMBALTA DELAYED RELEASE 20 MG PO (07:45)
[2025-07-20] MEDS: THERAGRAN 1 TABLET PO (07:45)
[2025-07-20] MEDS: SENOKOT-S 2 TABLET PO (07:46)
[2025-07-20] MEDS: DESENEX/MITRAZOL/ZEASORB 1 APPLIC TOPICAL (07:46)
[2025-07-20] MEDS: MIRALAX 17 GRAMS PO (07:47)
[2025-07-20 08:22] LABS: Blood Urea Nitrogen 24 mg/dl (7-17); Calcium 9.4 mg/dl (8.4-10.2); Carbon Dioxide 28 mmol/L (22-30); Chloride 101 mmol/L (98-107); Estimated Creatinine Clearance 37 ml/min; Glucose 166 mg/dl (70-99); Potassium 4.4 mmol/L (3.5-5.1); Sodium 138 mmol/L (135-145); eGFR 46.91
--- NOTE | 2025-07-20 09:29 | W.PN.HOSP.TC ---
Addendum entered and electronically signed by Allegra Jane MD, Resident 07/20/25 15:43:
#JAS
Cr increase to 1.2 ->1.2
Appears stable
Okay to d/c with repeat BMP in one week and close cardiology f/u.
Addendum entered and electronically signed by Azul Lopez MD 07/20/25 14:07:
I saw and evaluated the patient. I reviewed the resident�s note and agree with findings and plan as documented in the resident�s note. Plan formulated together
Exam mostly unremarkable except few rales at the right base no pedal edema
Patient feels well today
Creatinine has plateaued
Will hold Lasix today and restart tomorrow at 40 twice daily and have BMP done as outpatient
Discussed with nursing and case management
Total discharge time more than 30 minutes
Original Note:
Today's Communication/Plan
-
d/c today with instructions to start 40mg lasix BID tomorrow, repeat BMP in one week
On 07/29 increase to duloxetine from 20 to 40mg daily and d/c lexapro
d/c with 2 more days of cefuroxime
Assessment / Plan
Assessment / Plan
75-year-old with acute on chronic HFpEF and COPD. Patient gained about 10 kg in the past 2 months
# Acute on chronic hypoxic respiratory failure
--Baseline 2L at home - currently on 2 L - stable
# Acute on chronic HFpEF
--Lasix 40 BID on hold for bump in cr. Restart tomorrow. d/c today
--Continue Farxiga, Aldactone
# Symptoms of UTI, abnormal urinalysis- E. coli UTI.
--On ceftriaxone, day 3/5
--Discharge on cefuroxime to finish 5 day course
# COPD
--No in exacerbation
--At baseline 2L
--Duonebs
# Diabetes-hemoglobin A1c 7.9
--Uses dapagliflozin, glargine insulin 26 units and sliding scale coverage with lispro as outpatient
--Continue Lantus 30 units, sliding scale coverage
--ADA diet
# Moderate mitral stenosis
# Hypertension
--Controlled, continue Norvasc, Aldactone
# Hyperlipidemia
--Continue statin
# History of coronary artery disease
# Hypothyroidism
--continue levothyroxine
# History of CVA with right-sided neuropathic pain
--Continue gabapentin, duloxetine started here
--Also on oxycodone as needed as outpatient
# Depression
--Was on Lexapro, Wellbutrin. Now Duloxetine added 07/15
--Discussed with psych. Will continue current meds and instruct increase to duloxetine from 20 to 40mg daily and d/c lexapro on 07/29
# Chronic anemia-iron deficiency anemia
-- IV iron
# History of DVT
# GERD-continue PPI
# Possible vascular dementia
# Ambulatory dysfunction
# Ex-smoker
DVT prophylaxis-Lovenox
DNR status
Anticipated Discharge: Today
Subjective/Interval History
-
Date of Service: July 20, 2025
Overall feeling well. No complaints. Appears bright and cheerful.
Objective Data
-
Labs:
Laboratory Results
07/20/25
06:35
Sodium 138
Potassium 4.4
Chloride 101
Carbon Dioxide 28
BUN 24 H
Creatinine 1.2 H
Glucose 166 H
Calcium 9.4
Vital Signs:
Vital Signs
Temp Pulse Resp BP Pulse Ox
98.1 F 65 20 126/48 97
07/20/25 07:30 07/20/25 07:45 07/20/25 07:30 07/20/25 07:45 07/20/25 09:20
I&O
07/19/25 07/20/25 07/21/25
06:59 06:59 06:59
Intake Total 660 / 660 600 / 600
Balance 660 / 660 600 / 600
Review of Systems
-
History Source: Patient
Constitutional: Reports No Symptoms
EENT: Reports No Symptoms Reported
Respiratory: Reports No Symptoms
Cardiac: Reports No Symptoms
Abdomen/GI: Reports No Symptoms
Neuro: Reports No Symptoms
Physical Exam
-
General: No Apparent Distress and Comfortable
HEENT: Normocephalic
Respiratory: Crackles
Cardiac: Regular Rhythm and S1/S2
GI: Soft, Nontender, Nondistended and Normal Bowel Sounds
Musculoskeletal: No Cyanosis and No Edema
Skin: Warm and Dry
Neuro: AO x 3
Psych: Calm
--- NOTE | 2025-07-20 11:25 | CM ---
Addendum entered by STEVE De La Rosa 07/20/25 13:41:
Spoke with Resident who stated that patient is stable for discharge. Met with patient who signed IMM after it was reviewed. It is now on chart. Medical necessity and transfer sheet for ambulance transfer due to Dementia provided to 4e unit technician.
Addendum entered by STEVE De La Rosa 07/20/25 11:58:
Spoke with Amanda in admissions who stated that patient can transfer back today if medically stable. # For report [phone] and # For fax [phone].
Original Note:
Per last attending note, patient may be medically cleared for discharge today if stable. Per PT, patient at baseline and no skilled rehab is indicated. Placed a call to Amanda in admissions to update and obtain # for report and # for fax, however had
to leave a voice mail message. Requested return call and provided CM contact information. Will send referral if needed.
Plan: Case management will continue to follow and assist with discharge planning. 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
[2025-07-20 11:53] LABS: Glucose - Point of Care 192 mg/dl (70-99)
[2025-07-20] MEDS: FERRLECIT 110 MG IV (13:09)
[2025-07-20] MEDS: ROCEPHIN 1000 MG IV (13:09)
[2025-07-20] MEDS: STERILE WATER FOR INJECTION 10 ML IV (13:09)
[2025-07-20 15:15] VITALS: BP 135/65
--- NOTE | 2025-07-20 15:36 | PN.CDI ---
CDI
- -
CDI:
Physician Documentation Request
Admit Date: 07/12/25 03:50
Dear Doctor Buck,
Patient admitted for heart failure.
Laboratory Tests
07/17/25 07/19/25 07/20/25
07:14 06:19 06:35
Creatinine 0.9 1.2 H 1.2 H
Clarify which of the following accurately represents the patient's renal status:
JAS
Rise in creatinine
Other
Criteria for JAS*
1 Increase in serum creatinine by > or = to 0.3 mg/dL (> or = to 26.5 micromol/L) within 48 hours, OR
2 Increase in serum creatinine to > or = to 1.5 times baseline, which is known or presumed to have occurred within 7 days, OR
3 Urine volume < 0.5 nL/kg/hour for six hours
Use of terms such as suspected, likely, concern for, or probable (associated with a specific diagnosis that is being evaluated, monitored, or treated as if it exists) are acceptable and can be coded in the inpatient setting, when documented at the
time of discharge.
Thank you,
Brina Arredondo RN, BSN
CDI Specialist
Available via Amelia text
Please use your independent medical judgment in providing your response.
*Source: Kidney Disease: Improving Global Outcomes (KDIGO) 2012
--- NOTE | 2025-07-20 15:43 | W.DCSUMMARY ---
Documented by User: Allegra Jane MD, Resident 07/20/25 15:58
Discharge Summary
Discharge Data
Date of Admission: 07/12/25
Date of Discharge: 07/20/25
-
Pending Results: No
Hospital Course
Primary diagnosis;
Acute on chronic hypoxic respiratory failure
Acute on chronic HFpEF exacerbation
UTI
COPD
JAS
Iron deficiency anemia
Secondary diagnoses:
Diabetes type 2
Moderate mitral stenosis
Hypertension
Hyperlipidemia
CAD
Hypothyroidism
History of CVA
Depression
History of DVT
GERD
Vascular dementia
Ambulatory dysfunction
Ex-smoker
Hospital Course:
75-year-old female presented to [facility] for concerns of low pulse ox and shortness of breath at home. She is on 2 L at baseline for COPD. Chest x-ray revealed mild interstitial pulmonary edema and BNP was elevated at 2800. She was
admitted for mild CHF exacerbation and started on Lasix 40 mg IV daily. Cardiology and pulmonology were consulted. From cardiology standpoint, IV lasix was later transition to p.o.. Pulmonology started her on DuoNebs. During stay was noted to
have metabolic alkalosis on VBG and had a brief treatment with Diamox. Due to complaints of right sided neuropathic pain with history of CVA, patient was also started on duloxetine. As duloxetine is also on SSRI, Lexapro was cut in half with
instructions to discontinue Lexapro on 07/29/25 (2 weeks from start) and increase duloxetine to 40. Patient was also noted to have UTI and started on ceftriaxone. Her anemia was also worked up and found to be iron deficient so started on IV iron. On
07/18, patient's creatinine noted to elevate from 0.9 to 1.1. Lasix was held and creatinine was monitored. Creatinine appeared to stabilize around 1.2.
Today, patient is stable for discharge with instructions to restart Lasix 40 mg p.o. twice daily tomorrow with repeat BMP in 1 week. She has received 3 days of ceftriaxone and requires 2 more days of antibiotic therapy for UTI therefore discharged
on 2 days of cefuroxime. She also has instructions on 07/29/25 to discontinue Lexapro on and increase duloxetine to 40.
Discharge Plan
-
Patient Disposition: Jail/SNF
Discharge Diagnosis/Procedures: Heart failure
UTI
Diabetes
Moderate mitral stenosis
Hypertension
Hyperlipidemia
Coronary artery disease
History of CVA
Depression
GERD
Condition: Fair
Diet: 2 Gram Sodium and Diabetic, Carb Controlled
Additional Diets: 50 ounce fluid obstruction
Driving Restrictions: No driving
Other Services: PT and OT
Specialty Instructions: Weigh Daily- Call MD for wt gain/loss 3 lbs overnight/5 lbs in 1 week
Activity Restrictions/Additional Instructions:
increase the dose of duloxetine to 40 mg and discontinue Lexapro on 07/29/2025
see pcp and GI for work up of anemia
Referrals:
Long Blunt DO [Family Provider, Family Practice] - in one to two weeks
Sam Aponte MD [Active, Pulmonary Medicine] - in two to four weeks
Referral Note: Or nurse practitioner-try to wean off oxygen
Additional Discharge Medication Instructions: Start lasix 40mg twice daily tomorrow 07/21/25. Repeat BMP 3 days to check creatinine.
Take 2 more days of cefuroxime finishing 07/22
On 07/29/25, increase dose of duloxetine to 40 mg and discontinue Lexapro
Gabapentin reduced to 300 3 times daily
Prescriptions:
New
cyanocobalamin (vitamin B-12) [Vitamin B-12] 500 mcg Tablet
1,000 mcg PO DAILY Qty: 30 0RF
duloxetine 20 mg Capsule,Delayed Release(Dr/Ec)
20 mg PO DAILY Qty: 30 0RF
spironolactone 25 mg Tablet
25 mg PO DAILY Qty: 0 0RF
cefuroxime axetil 500 mg tablet
500 mg PO BID 2 Days Qty: 4 0RF
Continued
acetaminophen [Tylenol Extra Strength] 500 mg Tablet
1,000 mg PO Q12H
magnesium hydroxide [Milk of Magnesia] 400 mg/5 mL Suspension
2,400 mg PO HSPRN PRN (Reason: constipation)
amlodipine [Norvasc] 10 mg Tablet
10 mg PO DAILY
bisacodyl [Dulcolax (bisacodyl)] 10 mg Suppository
10 mg RI [id number] PRN (Reason: no BM and MOM/lactulose ineffective)
rosuvastatin [Crestor] 40 mg Tablet
40 mg PO HS
levothyroxine 150 mcg Tablet
150 mcg PO DAILY
dapagliflozin propanediol 10 mg Tablet
10 mg PO DAILY
aspirin 81 mg Tablet,Chewable
81 mg PO DAILY
ferrous sulfate 325 mg (65 mg iron) Tablet
325 mg PO MOWEFR@1430
therapeutic multivitamin Tablet
1 tab PO DAILY
miconazole nitrate [Desenex] 2 % Powder
1 applic TOPICAL DAILY PRN (Reason: apply under B/L breast)
pantoprazole 20 mg Tablet,Delayed Release (Dr/Ec)
20 mg PO DAILY
insulin lispro [Admelog SoloStar U-100 Insulin] 100 unit/mL Insulin Pen
1 sliding scale dose SC DIRECTED
Rx Instructions:
05/14/2025, if blood sugar <70 = initiate hypoglycemic protocol; 0-200 = 0 units; 201-250 = 2 units; 251-300 = 4 units; 301-350 = 6 units; 351-400 = 8 units; >400 = 10 units.
bupropion HCl 150 mg Tablet Extended Release 24 Hr
150 mg PO DAILY
diclofenac sodium 1 % Gel
2 g TOPICAL QID PRN (Reason: apply to right shoulder)
polyethylene glycol 3350 17 gram/dose powder
17 g PO DAILY Qty: 510 0RF
oxycodone 5 mg Tablet
5 mg PO Q6H PRN (Reason: pain) Qty: 6 0RF
Changed
furosemide 40 mg Tablet
40 mg PO BID Qty: 30 0RF
insulin glargine [Basaglar KwikPen U-100 Insulin] 100 unit/mL (3 mL) Insulin Pen
30 unit SC HS Qty: 0 0RF
escitalopram oxalate [Lexapro] 10 mg Tablet
5 mg PO DAILY Qty: 10 0RF
gabapentin 300 mg Capsule
300 mg PO TID Qty: 0 0RF
Discharge Orders:
Discharge Patient (As Directed); Ordered 07/20/25
Ordered By: Allegra Jane
Discharge Date and Time
Discharge Date/Time: 07/20/25 18:08
Print Language: [place]

Documented by User: Azul Lopez MD 07/20/25 18:09
Discharge Summary
Discharge Data
Date of Admission: 07/12/25
Date of Discharge: 07/20/25
Discharge Plan
-
Patient Disposition: Jail/SNF
Discharge Diagnosis/Procedures: Heart failure
UTI
Diabetes
Moderate mitral stenosis
Hypertension
Hyperlipidemia
Coronary artery disease
History of CVA
Depression
GERD
Condition: Fair
Diet: 2 Gram Sodium and Diabetic, Carb Controlled
Additional Diets: 50 ounce fluid obstruction
Driving Restrictions: No driving
Other Services: PT and OT
Specialty Instructions: Weigh Daily- Call MD for wt gain/loss 3 lbs overnight/5 lbs in 1 week
Activity Restrictions/Additional Instructions:
increase the dose of duloxetine to 40 mg and discontinue Lexapro on 07/29/2025
see pcp and GI for work up of anemia
Referrals:
Long Blunt DO [Family Provider, Family Practice] - in one to two weeks
Sam Aponte MD [Active, Pulmonary Medicine] - in two to four weeks
Referral Note: Or nurse practitioner-try to wean off oxygen
Additional Discharge Medication Instructions: Start lasix 40mg twice daily tomorrow 07/21/25. Repeat BMP 3 days to check creatinine.
Take 2 more days of cefuroxime finishing 07/22
On 07/29/25, increase dose of duloxetine to 40 mg and discontinue Lexapro
Gabapentin reduced to 300 3 times daily
Prescriptions:
New
cyanocobalamin (vitamin B-12) [Vitamin B-12] 500 mcg Tablet
1,000 mcg PO DAILY Qty: 30 0RF
duloxetine 20 mg Capsule,Delayed Release(Dr/Ec)
20 mg PO DAILY Qty: 30 0RF
spironolactone 25 mg Tablet
25 mg PO DAILY Qty: 0 0RF
cefuroxime axetil 500 mg tablet
500 mg PO BID 2 Days Qty: 4 0RF
Continued
acetaminophen [Tylenol Extra Strength] 500 mg Tablet
1,000 mg PO Q12H
magnesium hydroxide [Milk of Magnesia] 400 mg/5 mL Suspension
2,400 mg PO HSPRN PRN (Reason: constipation)
amlodipine [Norvasc] 10 mg Tablet
10 mg PO DAILY
bisacodyl [Dulcolax (bisacodyl)] 10 mg Suppository
10 mg RI [id number] PRN (Reason: no BM and MOM/lactulose ineffective)
rosuvastatin [Crestor] 40 mg Tablet
40 mg PO HS
levothyroxine 150 mcg Tablet
150 mcg PO DAILY
dapagliflozin propanediol 10 mg Tablet
10 mg PO DAILY
aspirin 81 mg Tablet,Chewable
81 mg PO DAILY
ferrous sulfate 325 mg (65 mg iron) Tablet
325 mg PO MOWEFR@1430
therapeutic multivitamin Tablet
1 tab PO DAILY
miconazole nitrate [Desenex] 2 % Powder
1 applic TOPICAL DAILY PRN (Reason: apply under B/L breast)
pantoprazole 20 mg Tablet,Delayed Release (Dr/Ec)
20 mg PO DAILY
insulin lispro [Admelog SoloStar U-100 Insulin] 100 unit/mL Insulin Pen
1 sliding scale dose SC DIRECTED
Rx Instructions:
05/14/2025, if blood sugar <70 = initiate hypoglycemic protocol; 0-200 = 0 units; 201-250 = 2 units; 251-300 = 4 units; 301-350 = 6 units; 351-400 = 8 units; >400 = 10 units.
bupropion HCl 150 mg Tablet Extended Release 24 Hr
150 mg PO DAILY
diclofenac sodium 1 % Gel
2 g TOPICAL QID PRN (Reason: apply to right shoulder)
polyethylene glycol 3350 17 gram/dose powder
17 g PO DAILY Qty: 510 0RF
oxycodone 5 mg Tablet
5 mg PO Q6H PRN (Reason: pain) Qty: 6 0RF
Changed
furosemide 40 mg Tablet
40 mg PO BID Qty: 30 0RF
insulin glargine [Basaglar KwikPen U-100 Insulin] 100 unit/mL (3 mL) Insulin Pen
30 unit SC HS Qty: 0 0RF
escitalopram oxalate [Lexapro] 10 mg Tablet
5 mg PO DAILY Qty: 10 0RF
gabapentin 300 mg Capsule
300 mg PO TID Qty: 0 0RF
Discharge Orders:
Discharge Patient (As Directed); Ordered 07/20/25
Ordered By: Allegra Jane
Discharge Date and Time
Discharge Date/Time: 07/20/25 18:08
Print Language: [place]
[2025-07-20] MEDS: LOVENOX 40 MG SC (16:46)
[2025-07-20] MEDS: NEURONTIN 300 MG PO (16:46)
[2025-07-20 16:47] LABS: Glucose - Point of Care 195 mg/dl (70-99)
== END 2025-07-20 18:08 | DRG 291 ==
LOC: 4 EAST ACU 03:50
PROVIDERS: Internal Medicine; Nurse Practitioner Family; Physician Assistant; ADMITTING PHYSICIAN Internal Medicine; ATTENDING PHYSICIAN Hospitalist; CONSULT PHYSICIAN Internal Medicine Critical Care Medicine; CONSULT PHYSICIAN Student in an Organized Health Care Education/Training Program; EMERGENCY PHYSICIAN Student in an Organized Health Care Education/Training Program; FAMILY PHYSICIAN Student in an Organized Health Care Education/Training Program
DX: I11.0 Hypertensive heart disease with heart failure (principal); I50.33 Acute on chronic diastolic (congestive) heart failure; J96.21 Acute and chronic respiratory failure with hypoxia; N39.0 Urinary tract infection, site not specified; N17.9 Acute kidney failure, unspecified; F01.53 Vascular dementia, unspecified severity, with mood disturbance; E87.4 Mixed disorder of acid-base balance; J44.9 Chronic obstructive pulmonary disease, unspecified; D50.9 Iron deficiency anemia, unspecified; I05.0 Rheumatic mitral stenosis; E11.65 Type 2 diabetes mellitus with hyperglycemia; I25.10 Atherosclerotic heart disease of native coronary artery without angina pectoris; E03.9 Hypothyroidism, unspecified; Z86.73 Personal history of transient ischemic attack (TIA), and cerebral infarction without residual deficits; F32.A Depression, unspecified; Z86.718 Personal history of other venous thrombosis and embolism; K21.9 Gastro-esophageal reflux disease without esophagitis; Z87.891 Personal history of nicotine dependence; E78.00 Pure hypercholesterolemia, unspecified; Z66 Do not resuscitate; E66.01 Morbid (severe) obesity due to excess calories; Z68.34 Body mass index [BMI] 34.0-34.9, adult; G89.29 Other chronic pain; I48.91 Unspecified atrial fibrillation; Z79.4 Long term (current) use of insulin; Z79.82 Long term (current) use of aspirin; Z79.84 Long term (current) use of oral hypoglycemic drugs; Z79.890 Hormone replacement therapy; Z79.899 Other long term (current) drug therapy; Z99.81 Dependence on supplemental oxygen
CPT/HCPCS: 71046; 80048; 80053; 81003; 81015; 82607; 82728; 82805; 82962; 83036; 83540; 83550; 83735; 83880; 84100; 85025; 85027; 87077; 87086; 87186; 93005; 94640; 96374; 97163; 97167; 99285; J2916

== ENCOUNTER → 2025-07-23 09:47 | Outpatient (REF) | payer OTHER, MEDICARE, SELFPAY ==
[2025-07-23 10:15] LABS: Hematocrit 39.0 % (37.0-47.0); Hemoglobin 11.7 g/dL (12.0-16.0); Mean Corp Hgb Conc. 30.0 g/dL (33.0-37.0); Mean Corpuscular Volume 89.4 fL (81.0-99.0); Platelet Count 293 10^3/uL (130-400); Red Cell Dist. Width 17.2 % (11.5-14.5)
[2025-07-23 10:27] LABS: Blood Urea Nitrogen 30 mg/dl (7-17); Calcium 9.6 mg/dl (8.4-10.2); Carbon Dioxide 28 mmol/L (22-30); Chloride 102 mmol/L (98-107); Glucose 189 mg/dl (70-99); Magnesium 2.4 mg/dl (1.6-2.3); Potassium 4.5 mmol/L (3.5-5.1); Sodium 139 mmol/L (135-145); eGFR 58.39
== END ==
LOC: OLABN 09:47
PROVIDERS: ATTENDING PHYSICIAN Student in an Organized Health Care Education/Training Program
DX: I10 Essential (primary) hypertension (principal); E03.9 Hypothyroidism, unspecified; I50.32 Chronic diastolic (congestive) heart failure
CPT/HCPCS: 36415; 80048; 83735; 85027

== ENCOUNTER → 2025-08-26 12:18 | Outpatient (REF) | payer MEDICARE, OTHER, SELFPAY ==
[2025-08-26 14:40] LABS: HDL Cholesterol 42 mg/dl; LDL Cholesterol, Calculated 31 mg/dl; Very Low Density Lipoprotein 48 mg/dl (0-30)
== END ==
LOC: OLABN 12:18
PROVIDERS: ATTENDING PHYSICIAN Student in an Organized Health Care Education/Training Program
DX: E78.5 Hyperlipidemia, unspecified (principal)
CPT/HCPCS: 36415; 80061

== ENCOUNTER → 2025-10-28 10:28 | Outpatient (REF) | payer MEDICARE, OTHER, SELFPAY ==
[2025-10-28 11:22] LABS: Hematocrit 42.0 % (37.0-47.0); Hemoglobin 13.5 g/dL (12.0-16.0); Mean Corp Hgb Conc. 32.1 g/dL (33.0-37.0); Mean Corpuscular Volume 85.5 fL (81.0-99.0); Platelet Count 293 10^3/uL (130-400); Red Cell Dist. Width 15.7 % (11.5-14.5)
[2025-10-28 11:31] LABS: Magnesium 2.4 mg/dl (1.6-2.3)
[2025-10-28 12:01] LABS: TSH 2.46 uIU/ml (0.47-4.68)
[2025-10-28 13:21] LABS: Glycohemoglobin (HgbA1c) 8.7 % (4.0-5.9)
== END ==
LOC: OLABN 10:28
PROVIDERS: ATTENDING PHYSICIAN Student in an Organized Health Care Education/Training Program
DX: I10 Essential (primary) hypertension (principal); I27.20 Pulmonary hypertension, unspecified; E03.9 Hypothyroidism, unspecified; E11.65 Type 2 diabetes mellitus with hyperglycemia
CPT/HCPCS: 36415; 83036; 83735; 84443; 85027